=== PATIENT | female | born 1965 | race Caucasian/White ===

== ENCOUNTER → 2018-02-16 11:28 | Outpatient (CLI) | payer MEDICARE, SELFPAY ==
[2018-02-16 13:04] LABS: Amphetamine Urine VISTA NEGATIVE (<1000 ng/mL); Barbiturate Urine VISTA NEGATIVE (< 200 ng/mL); Benzodiazepine Urine VISTA NEGATIVE (< 200 ng/mL); Cocaine Urine VISTA NEGATIVE (< 300 ng/mL); Ecstacy Urine VISTA POSITIVE (< 500 ng/mL); Methadone Urine VISTA NEGATIVE (< 300 ng/mL); PCP Urine VISTA NEGATIVE (< 25 ng/mL); THC Urine VISTA NEGATIVE (< 50 ng/mL); Vista UDS pH Range 5
== END ==
PROVIDERS: Family Provider Family Medicine; PCP Family Medicine; Visit Provider Anesthesiology Pain Medicine
DX: F11.20 Opioid dependence, uncomplicated (principal)
CPT/HCPCS: 80307

== ENCOUNTER 2018-08-17 12:40 | Emergency (ER) | payer MEDICARE, SELFPAY ==
[2018-08-17 12:41] VITALS: BP 124/90; PULSE 79; RESP 18; TEMP 36; O2SAT 99; BMI 23.2
[2018-08-17 13:05] VITALS: BP 133/107; PULSE 88; RESP 14; O2SAT 100
--- NOTE | 2018-08-17 13:42 | EKG12_ITS ---
Test Reason : FALL Blood Pressure : / mmHG Vent. Rate : 091 BPM Atrial Rate : 091 BPM P-R Int : 144 ms QRS Dur : 080 ms QT Int : 380 ms P-R-T Axes : 058 007 018 degrees QTc Int : 467 ms Normal sinus rhythm Low voltage QRS Nonspecific T wave abnormality Prolonged QT Abnormal ECG Confirmed by KEVIN RICE, GARRETT ([id number]), technical writer and editor GER ZHANG ([id number] on 08/20/2018 3:25:06 PM Referred By: MARAYM Confirmed By:GARRETT BROWN MD
--- NOTE | 2018-08-17 13:42 | CT_ITS ---
STUDY: CT BRAIN WITHOUT CONTRAST REASON FOR EXAM: Female, 52 years old. Unsteadiness and falls. RADIATION DOSAGE (If Supplied By Facility): CTDIvol = ( 60.81 ) mGy, DLP = ( 998.67 ) mGycm TECHNIQUE: Transaxial CT imaging of the brain was performed without administration of intravenous contrast material. Individualized dose optimization techniques were used for this CT. COMPARISON: None. FINDINGS: Normal soft tissue structures. Normal calvarium. Normal size ventricles and extra-axial spaces for the patient's age. Normal white matter tracts of the cerebral hemispheres. Normal basal ganglia and thalami. Normal brainstem. Normal cerebellum. There is no intracranial hemorrhage. There are no findings of an acute ischemic infarction. Normal visualized paranasal sinuses. CT/Brain/Head without Contrast IMPRESSION: Normal unenhanced CT scan of the brain. Electronically Signed: Jamshid Castillo MD at 15:17 EST , Service support ,
[2018-08-17 14:55] LABS: Absolute Lymphocyte Count 1.06 X10^3/ul (0.83-4.51); Absolute Neutrophil Count 4.8 X10^3/uL (2.0-7.7); Basophil# 0.01 X10^3/uL; Basophil% 0.2 % (0-1); Eosinophil# 0.09 X10^3/uL; Eosinophils% 1.4 % (0-5); Hematocrit 29.5 % (37-47); Hemoglobin 9.2 g/dl (12.0-15.0); Lymphocyte # 1.06 X10^3/ul (4.0); Lymphocyte % 16.5 % (19-41); Mean Corp Hgb Conc 31.2 g/gl (32-36); Mean Corpuscular Hgb 30.5 pg (27.0-32.0); Mean Corpuscular Volume 97.7 fL (81-99); Mean Platelet Vol. 8.6 fl (6.2-12.0); Monocyte# 0.42 X10^3/uL; Monocyte% 6.5 % (0-10); Neutrophil # 4.84 X10^3/uL (2.7-7.7); Neutrophil % 75.2 % (47-70); POSITIVE COUNT NO; POSITIVE DIFFERENTIAL NO; POSITIVE MORPHOLOGY NO; Platelet Count 286 K/mm3 (150-450); RBC Distribution Width CV 15.3 % (11.6-14.6); RBC Distribution Width SD 54.4 fl (35.1-43.9); Red Blood Count 3.02 M/mm3 (4.2-5.4); White Blood Count 6.4 K/mm3 (4.4-11.0)
[2018-08-17 15:07] LABS: Anion Gap 9 (5-15); BUN 8 mg/dL (7-18); BUN/Creat Ratio 16.5 RATIO (10-20); Calcium,Total 7.7 mg/dL (8.5-10.1); Chloride 107 mmol/L (98-107); Creatinine, Serum 0.49 mg/dL (0.55-1.02); EST Glomerular Filtration Rate 142 mL/min (>60); Est Glom Filt Rate - Afr Amer 172 mL/min (>60); Glucose 76 mg/dL (74-106); Potassium 3.3 mmol/L (3.5-5.1); Sodium Level 143 mmol/L (136-145)
[2018-08-17] MEDS: oxyCODONE 5 MG Tablet 10 MG PO (15:09)
[2018-08-17 15:10] VITALS: BP 133/97; PULSE 90; RESP 15; O2SAT 100
--- NOTE | 2018-08-17 16:09 | ED.VISSUMM ---
- ER Visit Summary Date of Service: 08/17/18 Chief Complaint: Fatigue, generalized weakness and falls. History of Present Illness: The patient is a 52 F history of rheumatoid arthritis, hypertension, anemia. Patient states for 6 months she has had falls. She says at times it feels like her legs are weak. Specifically hard to walk up steps. At times she gets off balance and falls. She denies any LOC or significant head injury. She is on no blood thinners. She has had prior back fusion. She denies any bowel or bladder incontinence. Physical Examination: Middle-aged female looks older than stated age. Vital signs are stable and afebrile. Pulse ox 9% on room air no signs of hypoxia. He is in no acute distress. H EENT exam unremarkable atraumatic. Pupils are round and reactive light. Extra motions are no facial droop. Normal speech. No signs of trauma to her face or scalp. Neck nontender no lymphadenopathy. Lungs clear to auscultation bilaterally. Heart regular rate and rhythm. I do not appreciate any murmur. Abdomen is soft nontender. Normal bowel sounds no peritoneal signs. Extremities moves all 4. Calves are nontender without cords. She has trace edema in her ankles and feet. Neurologically she is awake and alert. Has equal symmetrical assortment planner strength. Dorsi plantar flexion intact. Answering questions. Following commands. Normal speech. No focal motor deficits. NIH is 0. Test Results: CBC shows a white count that is normal. Hemoglobin 9.2. Patient told me she has a chronic anemia. We have no old labs available for comparison. She has had no rectal bleeding or black stool. Electrolytes show potassium of 3.3. BUN of 8 creatinine 0.49 and a normal gap. EKG is a sinus rhythm rate of 91 with no acute abnormalities. CT of her brain showed no acute process. Read as normal by the radiologist and reviewed by Emergency Department Course and Treatment: Repeat exam patient is doing well at 1608. I got her up she got out of bed easily walked through the room in the hallway without any difficulty. She has no ataxia and she just complains of at times her legs get weak. Treatment Plan: Patient will follow up with her primary care physician for further evaluation. This may be coming from her back and she may be developing spinal stenosis. She may need an MRI of her spine. But at this time is no acute cauda equina or any other acute findings. Disposition: Discharge Impression: Acute generalized weakness and fatigue Chronic anemia This note was generated with [employer] dictation software. It may contain incorrect words, spelling, and punctuation that were not noted in review of the chart prior to signing ED Disposition - Plan for ED Patient: Chief Complaint: Fatigue Referrals: Tom Roberto MD [Primary Care Provider] -
--- NOTE | 2018-08-17 16:15 | ED.DEP ---
ED Disposition - Plan for ED Patient: Disposition: Home or Assisted Living Chief Complaint: Fatigue Instructions: ED Weakness [facility] Referrals: Tom Roberto MD [Primary Care Provider] - As soon as possible Additional Instructions: Follow up with your doctor for further evaluation. This may or may not be secondary to spinal stenosis.
[2018-08-17 16:27] VITALS: BP 125/100; PULSE 88; RESP 16; O2SAT 100
== END 2018-08-17 16:28 | disposition home or self-care (01) ==
PROVIDERS: Emergency Provider Emergency Medicine; Family Provider Family Medicine; PCP Family Medicine
DX: R53.1 Weakness (principal); R53.83 Other fatigue; D64.9 Anemia, unspecified; M06.9 Rheumatoid arthritis, unspecified; I10 Essential (primary) hypertension; R29.6 Repeated falls; Z79.891 Long term (current) use of opiate analgesic; Z79.899 Other long term (current) drug therapy
CPT/HCPCS: 70450; 80048; 85025; 93005; 99284; A4216

== ENCOUNTER 2018-09-13 10:02 | Observation (INO) | payer MEDICARE, SELFPAY ==
[2018-09-13] VITALS (8 sets, daily range): BP systolic 111–117; BP diastolic 53–92; PULSE 90–114; RESP 14–20; TEMP 36.6–37.2; O2SAT 95–98; BMI 23.0; BMI 22.5
--- NOTE | 2018-09-13 10:24 | CT_ITS ---
STUDY: CT BRAIN WITHOUT CONTRAST REASON FOR EXAM: Female, 52 years old. Anxiety. Increasing lower extremity weakness. RADIATION DOSAGE (If Supplied By Facility): CTDIvol = ( 44.99 ) mGy, DLP = ( 745.49 ) mGycm TECHNIQUE: Transaxial CT imaging of the brain was performed without administration of intravenous contrast material. Individualized dose optimization techniques were used for this CT. COMPARISON: Comparison is made with prior study dated August 17, 2018. FINDINGS: Normal soft tissue structures. Normal calvarium. There is mild cerebral atrophy with widening of the extra-axial spaces and ventricular dilatation. Normal white matter tracts of the cerebral hemispheres. New tiny lacunae in the left basal ganglia. Normal brainstem. Normal cerebellum. There is no intracranial hemorrhage. There are no findings of an acute ischemic infarction. Atherosclerotic calcification of the cavernous portions of the internal carotid arteries bilaterally. Normal visualized paranasal sinuses. CT/Brain/Head without Contrast IMPRESSION: Tiny lacuna in the left basal ganglion. Electronically Signed: Jamshid Castillo MD at 11:26 EST , Service support ,
--- NOTE | 2018-09-13 10:24 | RAD_ITS ---
STUDY: X-RAY CHEST REASON FOR EXAM: Female, 52 years old. Leg weakness. TECHNIQUE: Single AP portable view of the chest. COMPARISON: None. FINDINGS: Scattered calcified granulomas. The lungs are clear. There is no demonstrated pleural abnormality. Normal size heart. Normal mediastinum and apple. Normal visualized pulmonary arteries. Normal visualized aortic arch and descending thoracic aorta. There are diffuse degenerative changes of the visualized thoracic spine. Normal visualized ribs, clavicles, and shoulders. There is no demonstrated abnormality of the visualized soft tissue structures of the upper abdomen. RAD/Chest 1 View (Portable) IMPRESSION: No acute abnormality is seen. Electronically Signed: Jamshid Castillo MD at 10:48 EST , Service support ,
--- NOTE | 2018-09-13 10:25 | EKG12_ITS ---
Test Reason : SOB/WEAKNESS Blood Pressure : / mmHG Vent. Rate : 092 BPM Atrial Rate : 092 BPM P-R Int : 156 ms QRS Dur : 070 ms QT Int : 322 ms P-R-T Axes : 064 002 052 degrees QTc Int : 398 ms Normal sinus rhythm Low voltage QRS Nonspecific T wave abnormality Abnormal ECG Confirmed by FRANCA RICE, GLADIS ([id number]), scientific publications editor RUTH HALE ([id number] on 09/15/2018 9:54:41 AM Referred By: Ar Arnold Confirmed By:GLADIS SCHULTE MD
--- NOTE | 2018-09-13 10:38 | ED.DCSUM_ITS ---
- ER Visit Summary Date of Service: 09/13/18 Chief Complaint: Weakness History of Present Illness: The patient is a 52 F presenting with bilateral leg weakness. Patient states this started 2-3 months ago and has progressively worsened. She states that she frequently falls when her legs give out on her. She was seen in the ED on August 17 for similar complaints. She states her symptoms have worsened. She was unable to ambulate to the bathroom today. She has fallen multiple times. She did not recently hit her head or lose consciousness. She denies bowel or bladder incontinence. She denies fever. Denies chest pain or abdominal pain. Physical Examination: Vitals are stable. Patient is afebrile. Alert no acute distress. HEENT exam is unremarkable. Neck is supple. No meningismus Lungs are clear and equal bilaterally. Heart is regular rate and rhythm. Abdomen is soft nontender nondistended. Extremities are unremarkable. Skin is warm and dry. No focal neurologic deficit. NIH 0 Remainder of exam is unremarkable. Emergency Department Course and Treatment: EKG is sinus rate of 92, low voltage. Chest x-ray shows no acute process. CT head shows new tiny lacunae in the left basal ganglia. CBC normal except for hemoglobin 10.0. Chemistries normal except for potassium 2.9. Troponin is negative. She is given potassium oral replacement. Family is concerned about her increasing weakness and inability to get around at home. Discussed with the hospitalist for admission. Disposition: Admission Impression: Generalized weakness, hypokalemia, inability to ambulate This note was generated with [employer] dictation software. It may contain incorrect words, spelling, and punctuation that were not noted in review of the chart prior to signing ED Disposition - Plan for ED Patient: Referrals: Care Physician,No Primary [Primary Care Provider] -
[2018-09-13 11:03] LABS: Absolute Lymphocyte Count 0.95 X10^3/ul (0.83-4.51); Basophil# 0.01 X10^3/uL; Basophil% 0.1 % (0-1); Lymphocyte # 0.95 X10^3/ul (4.0); Lymphocyte % 9.9 % (19-41); Mean Corp Hgb Conc 32.3 g/gl (32-36); Mean Corpuscular Hgb 31.9 pg (27.0-32.0); Monocyte# 0.51 X10^3/uL; Monocyte% 5.3 % (0-10); Neutrophil # 7.98 X10^3/uL (2.7-7.7); Neutrophil % 83.2 % (47-70); Platelet Count 395 K/mm3 (150-450); RBC Distribution Width CV 15.6 % (11.6-14.6); Red Blood Count 3.13 M/mm3 (4.2-5.4); White Blood Count 9.6 K/mm3 (4.4-11.0)
[2018-09-13 11:06] LABS: POSITIVE COUNT NO; POSITIVE DIFFERENTIAL NO; POSITIVE MORPHOLOGY NO
[2018-09-13 11:18] LABS: Anion Gap 10 (5-15); BUN 12 mg/dL (7-18); BUN/Creat Ratio 22.2 RATIO (10-20); Calcium,Total 7.1 mg/dL (8.5-10.1); Chloride 102 mmol/L (98-107); Creatinine, Serum 0.54 mg/dL (0.55-1.02); EST Glomerular Filtration Rate 126 mL/min (>60); Est Glom Filt Rate - Afr Amer 152 mL/min (>60); Estimated Creatinine Clearance 100.81 ml/min; Glucose 76 mg/dL (74-106); Potassium 2.9 mmol/L (3.5-5.1); Sodium Level 140 mmol/L (136-145)
--- NOTE | 2018-09-13 11:56 | NURSING ---
DR ZEYAD DOMINIQUE
--- NOTE | 2018-09-13 12:02 | NURSING ---
PCU WEAKNESS, INABILITY TO AMBULATE ZEYAD
--- NOTE | 2018-09-13 13:46 | HP.PCM_ITS ---
Problem List (1) Chronic paraplegia Status: Chronic (2) Hypothyroidism Status: Acute (3) Hypertension Status: Chronic (4) Anxiety and depression Status: Acute (5) Acromegaly Status: Chronic (6) History of pituitary surgery Status: Chronic (7) Rheumatoid arthritis Status: Chronic History of Present Illness Date of Admission: 09/13/18 Chief Complaint: Bilateral leg weakness and recurrent fall The patient is a 52 year old F with chronic left lower extremity weakness for about 8-10 years, used to follow Dr. Anand came to ED with progression of right lower extremity weakness, started about 3 months ago. This has progressed more in the last 2 weeks which led to 3 falls the last 1 month. Patient also felt increased weakness in both hands and her handwriting gotten worse. As per son, she was recently confused about a week ago and could not remember the events of recent demise of her . She was unable to ambulate to the bathroom today. She denies loss of consciousness. She denies any recent bowel or bladder incontinence. No saddle anesthesia. Denies fever or chills. 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 Chest x-ray normal. EKG shows normal sinus rhythm with low voltage QRS. Basic blood work shows hypokalemia, K2.9, H&H 10/31.0. Past Medical History Past Medical History (Chronic Problems): Chronic Problems Chronic paraplegia (Chronic) Hypertension (Chronic) Acromegaly (Chronic) History of pituitary surgery (Chronic) Rheumatoid arthritis (Chronic) Allergies No Known Allergies Allergy (Verified 09/13/18 10:06) Home Medications: Ambulatory Orders Medication Instructions Recorded Duloxetine HCl 1 tab PO BID 08/17/18 Hydrochlorothiazide 1 tab PO DAILY 08/17/18 Levothyroxine Sodium 1 tab PO DAILY 08/17/18 Lisinopril 1 tab PO DAILY 08/17/18 Metoprolol Tartrate [Lopressor 1 tab PO DAILY 08/17/18 (beta jordan)] Oxycodone HCl/Acetaminophen 1 tab PO Q4H PRN PRN 08/17/18 [Oxycodon-Acetaminophen 7.5-325] Quetiapine Fumarate 1 tab PO QHS 08/17/18 Bupropion HCl [Wellbutrin Xl] 150 mg PO DAILY 09/13/18 Hydrocortisone [Cortef] 10 mg PO DAILY 09/13/18 Hydroxyzine Pamoate [Vistaril] 100 mg PO BID PRN PRN 09/13/18 Valacyclovir HCl [Valtrex] 2,000 mg PO BID PRN 09/13/18 Smoking Status: Never smoker - *Family History Paternal History Items: No pertinent history - no Family history of neurological disease in parents Review of Systems Constitutional: Reports: Malaise, Weakness, Fatigue. Denies: Chills, Fever, Weight Change HEENT: Denies: Head Aches, Sinus Congestion, Sinus Drainage Cardiovascular: Reports: Edema. Denies: Chest Pain, Palpitations Respiratory: Denies: Cough, Shortness of breath at rest, Sputum production Gastrointestinal: Denies: Abdominal Pain, Nausea, Vomiting Genitourinary: Denies: Dysuria, Frequency, Incontinence, Retention, Urgency Musculoskeletal: Reports: Back Pain, Joint Pain, Joint stiffness, Joint Tenderness Skin: Denies: Rash, Wounds Neurological: Reports: Balance problems, Focal weakness, Incoordination, N umbness. Denies: Tingling Psychiatric: Reports: Anxiety, Depression. Denies: Homicidal Ideations, Suicidal Ideations Hematologic/ Lymphatic: Denies: Easy Bruising, Easy Bleeding VTE Information - Inpt Only VTE Present on Admission: No VTE Mechan Device Prophylaxis: None VTE Pharm Prophylaxis ordered?: Yes Patient Problems: Active and Suspected Problems Hypothyroidism (Acute) Anxiety and depression (Acute) - Physical Exam General: Alert, Oriented x3, Cooperative HEENT: Atraumatic, PERRLA, EOMI, Normocephalic, - - 1:1 visual confrontation test is negative. Neck: Supple, No JVD, Negative Carotid Bruits Lungs: Clear to auscultation, Normal air movement, No rhonchi, No wheeze, No rales Cardiovascular: Regular rate, Regular Rhythm, Normal S1, Normal S2, Murmur - Diastolic murmur present over aortic area. Systolic ejection murmur present over aortic and lower left sternal border Abdomen: Bowel Sounds Present, Soft, Non Tender, Non-Distended Extremities: No edema, Capillary Refill Less than 3 Seconds Skin: No rashes, No breakdown Musculoskeletal: No Tenderness to Palpation of Joints or Extremities, Arthritic Changes, Muscle Wasting Neurological: - - Slight left-sided facial droop. Weakness in both lower extremities, left lower extremities more than right. No recognizable speech abnormality. Weakness in finger abductors and adductors. Cerebellar signs negative. Psych/Mental Status: Normal Affect, Appropriate Vital Signs Temp Pulse Resp BP Pulse Ox 97.8 F 90 16 111/56 L 97 09/13/18 10:03 09/13/18 11:59 09/13/18 11:59 09/13/18 11:59 09/13/18 11:59 Oxygen Delivery Method Room Air Weight: 127 lb 3.307 oz Body Mass Index (BMI) 22.5 Laboratory Tests Past 24 Hrs 09/13/18 09/13/18 10:50 10:50 WBC 9.6 RBC 3.13 L Hgb 10.0 L Hct 31.0 L MCV 99.0 MCH 31.9 MCHC 32.3 RDW 15.6 H RDW Differential 52.0 H Plt Count 395 MPV 9.0 Immature Gran % (Auto) 0.500 Neut % (Auto) 83.2 H Lymph % (Auto) 9.9 L Carbon % (Auto) 5.3 Eos % (Auto) 1.0 Baso % (Auto) 0.1 Absolute Neuts (auto) 8.0 H Absolute Lymphs (auto) 0.95 Total Counted Not Reportable Sodium 140 Potassium 2.9 L Chloride 102 Carbon Dioxide 28.0 Anion Gap 10 BUN 12 Creatinine 0.54 L Estim Creat Clear Calc 100.81 Est GFR (MDRD) Af Amer 152 Est GFR (MDRD) Non-Af 126 BUN/Creatinine Ratio 22.2 H Glucose 76 Calcium 7.1 L Troponin I < 0.015 Assessment/Plan All Active Problems Hypothyroidism (Acute) Anxiety and depression (Acute) The patient is a 52 year old F with chronic left lower extremity weakness for about 8-10 years, used to follow Dr. Anand came to ED with progression of right lower extremity weakness, started about 3 months ago. This has progressed more in the last 2 weeks which led to 3 falls the last 1 month. Patient also felt increased weakness in both hands and her handwriting gotten worse. As per son, she was recently confused about a week ago and could not remember the events of recent demise of her . She was unable to ambulate to the bathroom today. She denies loss of consciousness. She denies any recent bowel or bladder incontinence. No saddle anesthesia. Denies fever or chills. 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 Chest x-ray normal. EKG shows normal sinus rhythm with low voltage QRS. Basic blood work shows hypokalemia, K2.9, H&H 10/31.0. 1. Subacute right lower extremity weakness on left lower baseline chronic left lower extremity weakness: Patient does not have signs and symptoms of upper motor neuron lesion/cord compression/saddle anesthesia. Patient is being admitted in PCU. MRI C-spine and lumbar spine ordered. Discussed with the neurologist. PT OT and speech evaluation. Fasting profile and A1c tomorrow a.m. 2. Tiny lacuna left basal ganglia: CT brain reported as no acute infarction. Hypokalemia: Potassium monitoring and replacement. Serum magnesium ordered. Anemia of chronic disease: Monitor CBC. 3. 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 TSH and free T4 and cortisol tomorrow a.m. 4. Rheumatoid arthritis with mild hand/small muscles weakness 5. Hypertension, anxiety and depression: Home medication reconciliation done. Blood pressure is controlled. DVT prophylaxis: On Lovenox 40 mg subcu daily Clinical Impression(s) from Imaging Studies Brain CT 09/13/18 10:24 IMPRESSION: Tiny lacuna in the left basal ganglion. Electronically Signed: Jamshid Castillo MD at 11:26 EST , Service support , Chest X-Ray 09/13/18 10:24 IMPRESSION: No acute abnormality is seen. Active Medications Acetaminophen (Tylenol) 650 mg PO Q4H PRN PRN PRN Reason: Headache/Temp>99F Aspirin (Aspirin, Baby) 81 mg PO DAILY@0800 [facility] Atorvastatin Calcium (Lipitor) 80 mg PO QHS [facility] Bupropion HCl (Wellbutrin Xl) 150 mg PO DAILY [facility] Clopidogrel Bisulfate (Plavix) 75 mg PO DAILY [facility] Duloxetine HCl (Cymbalta) mg PO BID [facility] Famotidine (Pepcid) 20 mg PO BID [facility] Hydrochlorothiazide () mg PO DAILY [facility] Hydrocortisone (Cortef) 10 mg PO DAILY [facility] Sodium Chloride () 1,000 mls @ 100 mls/hr IV .Q10H [facility] Levothyroxine Sodium (Synthroid) mcg PO DAILY [facility] Metoprolol Tartrate (Lopressor (Beta Jordan)) mg PO DAILY [facility] Non-Formulary Medication (Hydroxyzine Pamoate [Vistaril]) 100 mg PO BID PRN PRN PRN Reason: ANXIETY Non-Formulary Medication (Oxycodone Hcl/Acetaminophen [Oxycodon-Acetaminophen 7.5-325]) 1 tab PO Q4H PRN PRN PRN Reason: PAIN Non-Formulary Medication (Valacyclovir Hcl) 2,000 mg PO BID PRN PRN Reason: outbreak Potassium Chloride (K-Dur) [facility] Stop: 09/14/18 17:01 Quetiapine Fumarate (Seroquel) mg PO QHS [facility] Code Visit Inpatient E&M: 79622 Init Hosp L3
--- NOTE | 2018-09-13 14:13 | MRI_ITS ---
HISTORY: CVA, PARAPLEGIA, NECK PAINchronic LLE weakness, now has RLE weakness past 3 months, falls, weakness bilat hands, hx pituitary surgery lesion too close to artery TECHNIQUE: Routine MRI of the cervical spine was performed. IV Contrast dosage and agent: None. COMPARISON: 03/15/15 MRI cervical spine. FINDINGS: # of images incl. paperwork: 253 Alignment anatomic. No acute signal changes in the vertebrae or disks. Normal contour and signal of the cervical spinal cord. Multilevel disc desiccation. Small disc protrusion that C5-6 and C6-7. Only mild narrowing of the spinal canal and foramina. Paraspinal soft tissues unremarkable. MRI/Spine Cervical (Routine) IMPRESSION: No acute findings. Mild degenerative changes with no evidence of nerve root impingement. at 0019 Reported and signed by: Nilesh Verduzco MD Electronically Signed: Nilesh Verduzco, at 0:18 EST Tel , Service support ,
--- NOTE | 2018-09-13 14:13 | MRI_ITS ---
HISTORY: CVA, PARAPLEGIA, NECK PAINchronic LLE weakness, now has RLE weakness past 3 months, falls, weakness bilat hands, hx pituitary surgery lesion too close to artery TECHNIQUE: Multiplanar and multisequence MR images of the brain were obtained without gadolinium. IV Contrast dosage and agent: None. COMPARISON: 09/13/18 CT brain. FINDINGS: # of images incl. paperwork: 278 No acute infarct, hemorrhage, or parenchymal brain mass. No hydrocephalus. Cerebral hemispheres and cerebellum, central padgett matter and allyson and brainstem unremarkable noncontrast MRI appearance. Heterogenous signal abnormality in and mild expansion of the upper clivus and floor of the sella, with abnormal signal extending into the left greater than right cavernous sinus. Pituitary gland not definitively identified. Optic chiasm unremarkable. Major flow voids preserved. The remainder of the calvarium is unremarkable. No paranasal sinus air-fluid levels. MRI/Brain without Contrast IMPRESSION: No acute intracranial abnormality. No infarct, hemorrhage or brain mass. Heterogenous signal abnormality in and mild expansion of the upper clivus and floor of the sella, with abnormal signal extending into the left greater than right cavernous sinus. Appearance most suspicious for residual or recurrent pituitary adenoma superimposed upon chronic postoperative changes. Comparison with priors would be helpful. Pituitary protocol MRI with and without gadolinium would better delineate. at 2331 Reported and signed by: Nilesh Verduzco MD Electronically Signed: Nilesh Verduzco, at 23:30 EST Tel , Service support ,
--- NOTE | 2018-09-13 14:13 | MRI_ITS ---
HISTORY: CVA, PARAPLEGIA, NECK PAINchronic LLE weakness, now has RLE weakness past 3 months, falls, weakness bilat hands, hx pituitary surgery lesion too close to artery TECHNIQUE: Multiplanar and multisequence MR images of the lumbar spine. IV Contrast dosage and agent: None. COMPARISON: None FINDINGS: # of images incl. paperwork: 128 Alignment anatomic. No fracture or acute signal changes in the vertebrae. Status post posterior fusion L4-5 and laminectomy. At L1-2 and L2-3, mild bilateral facet degeneration causes no significant narrowing. At L3-4, marked bilateral facet degeneration with bilateral facet joint effusions and degenerative buckling of the ligamentum flavum combine with a moderate in size diffuse disc bulge to cause moderate to severe narrowing of the right greater than left subarticular zones, with moderate crowding of the cauda equina and possible compression of the traversing right greater than left L4 nerve roots in the subarticular zones. At L4-5, the patient is status post posterior fusion and laminectomy with decompression of the spinal canal. Vertebral body osteophytes extend into and moderately narrow the left foramen. No significant right foraminal narrowing. At L5-S1, small disc bulge and bilateral facet osteophytes cause mild spinal canal and mild bilateral foraminal narrowing with no evidence of nerve root impingement. No acute finding in the paraspinal soft tissues. MRI/Spine Lumbar (Routine) IMPRESSION: Facet greater than disc degeneration at L3-4 resulting in moderate to severe narrowing of the right greater than left subarticular zones, possibly compressing the traversing L4 nerve roots. Status post L4-5 posterior fusion and laminectomy with no evidence of complication. Vertebral body osteophytes extend into and moderately narrows the left foramen. at 4328 Reported and signed by: Nilesh Verduzco MD Electronically Signed: Nilesh Verduzco, at 23:47 EST Tel , Service support ,
--- NOTE | 2018-09-13 14:20 | ECHOD_ITS ---
Reason For Study: CVA Procedure This was a 2D Doppler, Color Flow transthoracic echocardiogram. Exam performed portable in patient room. Left Ventricle Normal LV size. Mid cavitary false tendon noted. Left ventricular systolic function is normal. The estimated ejection fraction is 60 %. Stage 1 diastolic dysfunction. No regional wall motion abnormalities noted. Right Ventricle Normal RV size. Normal systolic function. Atria Normal left atrium. Normal right atrium. Bubble contrast study negative for right to left interatrial shunt. Mitral Valve Bileaflet diffuse mitral valve thickening. Mild (1+) eccentric mitral valve insufficiency. Tricuspid Valve Normal tricuspid valve. Mild tricuspid valve insufficiency. Aortic Valve Trisinus/trileaflet aortic valve. Great Vessels Mildly dilated aortic root. The pulmonary artery is normal size. Normal inferior vena cava. Pericardium/Pleural No pericardial effusion. Medication Performed a rapid injection of agitated mix of 9 cc saline and 1cc air to assess for atrial septal defect. MMode/2D Measurements & Calculations LVIDd: 3.3 cm IVSd: 1.0 cm Ao root diam: 3.5 cm LVIDs: 2.3 cm LVPWd: 0.79 cm RVDd: 2.5 cm FS: 30.9 % LAV(MOD-bp): 19.1 ml LVAd ap4: 22.0 cm2 SV(MOD-sp4): 37.1 ml LAV(MOD-bp) Indexed: 12.0 ml/m2 EDV(MOD-sp4): 56.8 ml LAV(MOD-sp2): 22.9 ml EDV(sp4-el): 59.4 ml LAV(MOD-sp4): 14.7 ml LVAs ap4: 11.5 cm2 ESV(MOD-sp4): 19.7 ml ESV(sp4-el): 19.4 ml EF(MOD-sp4): 65.3 % EF(sp4-el): 67.4 % SV(sp4-el): 40.1 ml LA A4 area: 8.5 cm2 LA dimension(2D): 3.1 cm RA A4 area: 8.1 cm2 Doppler Measurements & Calculations MV E max arun: 87.2 cm/sec Lat Peak E' Arun: 10.2 cm/sec Med Peak E' Arun: 6.5 cm/sec MV A max arun: 114.7 cm/sec E/E' lat: 8.6 E/E' med: 13.4 MV E/A: 0.76 Ao V2 max: 132.7 cm/sec LV V1 max: 102.7 cm/sec PA V2 max: 87.6 cm/sec Ao max P.0 mmHg LV V1 max P.2 mmHg Ao V2 mean: 98.5 cm/sec Ao mean P.2 mmHg Ao V2 VTI: 23.3 cm TR max arun: 214.2 cm/sec TR max P.3 mmHg Interpretation Summary Normal LV size. Left ventricular systolic function is normal. The estimated ejection fraction is 60 %. Stage 1 diastolic dysfunction. Mild (1+) eccentric mitral valve insufficiency. Ordering Physician: Ar Arnold Referring Physician: Ar Arnold Performed By: Ramya Valentine RDCS, RVT
[2018-09-13 15:17] LABS: AST(SGOT) 54 U/L (15-37); Alanine Aminotransfer ALT/SGPT 48 U/L (13-56); Albumin, Serum 1.5 g/dL (3.2-5.0); Alkaline Phosphatase 194 U/L (45-117); Bilirubin, Direct 0.87 mg/dL (0.00-0.30); Globulin 3.1 g/dL (2.2-4.2); Protein, Total 4.6 g/dL (6.4-8.2); Thyroid Stim Hormone (TSH) 2.11 uIU/mL (0.358-3.74)
--- NOTE | 2018-09-13 16:05 | CON.PCM_ITS ---
Problem List (1) Leg weakness, bilateral Status: Chronic Reason for Consult Date of Consultation: 09/13/18 Reason for Consultation: LE weakness History of Present Illness: The patient is a 52 year old F with PMH HTN, Chronic LE weakness, H/O Lumbar fusion, H/O acromegaly s/p pituitary surgery, RA, anxiety/depression admitted with LE weakness. Per patient she has chronic left LE weakness for the past many years, had seen Dr. Anand in the past per patient, then since last 6 more months or so she felt her right LE was getting weak, also complaints of about 2-3 falls in the last month, uses cane to ambulate for the past month, complaints of left LE numbness but denies any numbness in the right leg. Denies any arm weakness, does not drop objects, had lumbar fusion in the past and has chronic low back pain, goes to pain management, denies any radicular symptoms, neck pain or urinary incontinence. CT head reported to show new tiny lacunae in the left BG but no acute infarct. Past Medical History Past Medical History (Chronic Problems): Chronic Problems Chronic paraplegia (Chronic) Hypertension (Chronic) Acromegaly (Chronic) History of pituitary surgery (Chronic) Rheumatoid arthritis (Chronic) Leg weakness, bilateral (Chronic) Allergies No Known Allergies Allergy (Verified 09/13/18 10:06) Home Medications: Ambulatory Orders Medication Instructions Recorded Duloxetine HCl 1 tab PO BID 08/17/18 Hydrochlorothiazide 1 tab PO DAILY 08/17/18 Levothyroxine Sodium 1 tab PO DAILY 08/17/18 Lisinopril 1 tab PO DAILY 08/17/18 Metoprolol Tartrate [Lopressor 1 tab PO DAILY 08/17/18 (beta jimena)] Oxycodone HCl/Acetaminophen 1 tab PO Q4H PRN PRN 08/17/18 [Oxycodon-Acetaminophen 7.5-325] Quetiapine Fumarate 1 tab PO QHS 08/17/18 Bupropion HCl [Wellbutrin Xl] 150 mg PO DAILY 09/13/18 Hydrocortisone [Cortef] 10 mg PO DAILY 09/13/18 Hydroxyzine Pamoate [Vistaril] 100 mg PO BID PRN PRN 09/13/18 Valacyclovir HCl [Valtrex] 2,000 mg PO BID PRN 09/13/18 Lives: - - with son Smoking Status: Never smoker Alcohol: None Drugs: None - *Family History Paternal History Items: No pertinent history - no Family history of neurological disease in parents Review of Systems Constitutional: Reports: - - complete ROS negative except as documented in HPI Patient Problems: Active and Suspected Problems Hypothyroidism (Acute) Anxiety and depression (Acute) - Physical Exam General: Alert HEENT: Normocephalic Neck: Supple Lungs: Normal air movement Cardiovascular: Normal S1, Normal S2 Abdomen: Bowel Sounds Present Extremities: No cyanosis Neurological: - - consious, alert, AoA x3, CN 2-12 grossly intact, power 5/5 both UE, +4/5 both LE, no sensory loss, no cerebellar signs, Reflexes ++ B/L B/S/T/K/A, gait deferred Psych/Mental Status: Normal Affect Vital Signs Temp Pulse Resp BP Pulse Ox 98.1 F 90 14 115/92 H 98 09/13/18 13:50 09/13/18 13:52 09/13/18 13:50 09/13/18 13:50 09/13/18 13:50 Oxygen Delivery Method Room Air Weight: 57.7 kg Body Mass Index (BMI) 22.5 Laboratory Tests Past 24 Hrs 09/13/18 09/13/18 09/13/18 10:50 10:50 14:45 WBC 9.6 RBC 3.13 L Hgb 10.0 L Hct 31.0 L MCV 99.0 MCH 31.9 MCHC 32.3 RDW 15.6 H RDW Differential 52.0 H Plt Count 395 MPV 9.0 Immature Gran % (Auto) 0.500 Neut % (Auto) 83.2 H Lymph % (Auto) 9.9 L [place] % (Auto) 5.3 Eos % (Auto) 1.0 Baso % (Auto) 0.1 Absolute Neuts (auto) 8.0 H Absolute Lymphs (auto) 0.95 Total Counted Not Reportable Sodium 140 Potassium 2.9 L Chloride 102 Carbon Dioxide 28.0 Anion Gap 10 BUN 12 Creatinine 0.54 L Estim Creat Clear Calc 100.81 Est GFR (MDRD) Af Amer 152 Est GFR (MDRD) Non-Af 126 BUN/Creatinine Ratio 22.2 H Glucose 76 Calcium 7.1 L Magnesium 2.0 Total Bilirubin 1.20 H Direct Bilirubin 0.87 H AST 54 H ALT 48 Alkaline Phosphatase 194 H Troponin I < 0.015 < 0.015 C-React Prot Ext Range 25.30 H Total Protein 4.6 L Albumin 1.5 L Globulin 3.1 TSH 2.11 Cortisol 09/13/18 15:22 WBC RBC Hgb Hct MCV MCH MCHC RDW RDW Differential Plt Count MPV Immature Gran % (Auto) Neut % (Auto) Lymph % (Auto) [place] % (Auto) Eos % (Auto) Baso % (Auto) Absolute Neuts (auto) Absolute Lymphs (auto) Total Counted Sodium Potassium Chloride Carbon Dioxide Anion Gap BUN Creatinine Estim Creat Clear Calc Est GFR (MDRD) Af Amer Est GFR (MDRD) Non-Af BUN/Creatinine Ratio Glucose Calcium Magnesium Total Bilirubin Direct Bilirubin AST ALT Alkaline Phosphatase Troponin I C-React Prot Ext Range Total Protein Albumin Globulin TSH Cortisol Pending Assessment/Plan All Active Problems Hypothyroidism (Acute) Anxiety and depression (Acute) The patient is a 52 year old F with PMH HTN, Chronic LE weakness, H/O Lumbar fusion, H/O acromegaly s/p pituitary surgery, RA, anxiety/depression admitted with LE weakness. Per patient she has chronic left LE weakness for the past many years, had seen Dr. Anand in the past per patient, then since last 6 more months or so she felt her right LE was getting weak, also complaints of about 2- 3 falls in the last month, uses cane to ambulate for the past month, complaints of left LE numbness but denies any numbness in the right leg. Denies any arm weakness, does not drop objects, had lumbar fusion in the past and has chronic low back pain, goes to pain management, denies any radicular symptoms, neck pain or urinary incontinence. CT head reported to show new tiny lacunae in the left BG but no acute infarct. Impression ? LE weakness Plan -Check MRI brain w/o contrast and MRA head/neck -Check MRI C spine and L spine w/o contrast -ASA/statins if neuroimaging shows old stroke -TSH-2.11 -Check Vitamin B12, Vitamin D level, RICH/ANCA/RF/SSa/SSb Ab, SPEP with ERICA and UPEP with ERICA -EMG/NCS both LE as outpatient. -PT/OT -Fall precautions -GI/DVT prophylaxis -Further medical management per hospitalist team -Follow up with Neurology as outpatient in 6 weeks -Please call with questions if any -Thank you for allowing us to participate in patient's care and management. Code Visit Inpatient E&M: [id number] Init Hosp L3
--- NOTE | 2018-09-13 16:09 | MRI_ITS ---
HISTORY: CVA, PARAPLEGIA, NECK PAINchronic LLE weakness, now has RLE weakness past 3 months, falls, weakness bilat hands, hx pituitary surgery lesion too close to artery TECHNIQUE: Routine emmonak of Alfonso/brain 3D time of flight MR angiogram protocol was performed without gadolinium. 3D reconstructions were reviewed. IV Contrast dosage and agent: None. COMPARISON: None FINDINGS: # of images incl. paperwork: 195 ICAs: No significant stenosis at the intracranial/visualized segments. ACAs: No significant stenosis at the visualized segments. ACOM is present. MCAs: No significant stenosis at the visualized segments. PCOMs are present. fine wire drawer: No significant stenosis at the visualized segments. BASILAR ARTERY: No significant stenosis. VERTEBRAL ARTERIES: No significant stenosis at the intradural/visualized segments. No evidence of intracranial aneurysm or vascular malformation. MRI/MRA Head ONLY without Contrast IMPRESSION: Unremarkable MRA head. at 0117 Reported and signed by: Nilesh Verduzco MD Electronically Signed: Nielsh Verduzco, at 1:16 EST Tel , Service support ,
--- NOTE | 2018-09-13 16:09 | MRI_ITS ---
HISTORY: CVA, PARAPLEGIA, NECK PAINchronic LLE weakness, now has RLE weakness past 3 months, falls, weakness bilat hands, hx pituitary surgery lesion too close to artery TECHNIQUE: Routine carotid MR angiogram protocol was performed. 3D reconstructions were reviewed. Nascet criteria using the distal ICAs for comparison were used for evaluation of stenoses. IV Contrast dosage and agent: 6 cc Gadavist COMPARISON: None FINDINGS: # of images incl. paperwork: 316 AORTIC ARCH AND BRANCHES: No significant stenosis at the visualized portions. RIGHT CCA: No occlusion, significant stenosis or dissection. RIGHT ICA: No occlusion, significant stenosis or dissection. LEFT CCA: No occlusion, significant stenosis or dissection. LEFT ICA: No occlusion, significant stenosis or dissection. RIGHT VERTEBRAL ARTERY: No occlusion, significant stenosis or dissection. LEFT VERTEBRAL ARTERY: No occlusion, significant stenosis or dissection. No evidence of acute injury of the major arterial system of the neck. No evidence of occlusion at the visualized portions of the major arterial system of the head. MRI/MRA Neck WITH and W/O Contrast IMPRESSION: Unremarkable MRA neck. at 0113 Reported and signed by: Nilesh Verduzco MD Electronically Signed: Nilesh Verduzco, at 1:12 EST Tel , Service support ,
[2018-09-13 16:58] LABS: Vitamin B12 810 pg/mL (211-911)
[2018-09-13] MEDS: Aspirin 81 MG TAB.CHEW PO (17:47)
[2018-09-13] MEDS: 0.9% Normal Saline 1,000 ML 100 ML IV (17:47)
[2018-09-13] MEDS: oxyCODONE 5 MG Tablet 7.5 MG PO ×2 (17:48→22:15)
[2018-09-13] MEDS: Enoxaparin 40 MG/0.4 ML Syringe SC (17:50)
[2018-09-13] MEDS: LORazepam 2 MG/ML Syringe 1 MG IV (19:04)
[2018-09-13] MEDS: BENZOCAINE/MENTHOL 1 LOZENGE MUCOUS MEM (19:04)
[2018-09-13] MEDS: Ondansetron 4 MG/2 ML Vial IV (19:04)
[2018-09-13] MEDS: 0.9% NaCl Peripheral Flush Adult/Peds IV ×2 (19:09→22:11)
[2018-09-13] MEDS: DULoxetine Hcl 60 MG Capsule PO (22:08)
[2018-09-13] MEDS: QUEtiapine 100 MG Tablet PO (22:09)
[2018-09-13] MEDS: Atorvastatin Calcium 80 MG Tablet PO (22:09)
[2018-09-13] MEDS: Famotidine 20 MG Tablet PO (22:09)
[2018-09-14] VITALS (12 sets, daily range): BP systolic 93–124; BP diastolic 72–90; PULSE 72–109; RESP 16; TEMP 36.7–37.4; O2SAT 93–99; BMI 22.5
[2018-09-14 05:51] LABS: Cholesterol 107 mg/dL (200); High Density Lipoprotein 44 mg/dL; T4 Free Direct 0.63 ng/dL (0.76-1.46); Triglycerides 154 mg/dL; Very Low Density Lipoprotein 31 mg/dL (5-40)
[2018-09-14] MEDS: Levothyroxine 125 MCG Tablet PO (06:04)
[2018-09-14] MEDS: Famotidine 20 MG Tablet PO ×2 (06:08→21:16)
[2018-09-14] MEDS: 0.9% Normal Saline 1,000 ML 100 ML IV ×2 (06:11→16:33)
[2018-09-14] MEDS: oxyCODONE 5 MG Tablet 7.5 MG PO ×3 (06:21→19:24)
[2018-09-14] MEDS: BENZOCAINE/MENTHOL 1 LOZENGE MUCOUS MEM (06:21)
[2018-09-14 08:13] LABS: Anion Gap 5 (5-15); BUN 13 mg/dL (7-18); BUN/Creat Ratio 24.5 RATIO (10-20); Chloride 106 mmol/L (98-107); Creatinine, Serum 0.53 mg/dL (0.55-1.02); EST Glomerular Filtration Rate 128 mL/min (>60); Est Glom Filt Rate - Afr Amer 155 mL/min (>60); Estimated Creatinine Clearance 102.71 ml/min; Glucose 83 mg/dL (74-106); Potassium 3.7 mmol/L (3.5-5.1); Sodium Level 140 mmol/L (136-145)
[2018-09-14] MEDS: Aspirin 81 MG TAB.CHEW PO (08:59)
[2018-09-14] MEDS: Hydrocortisone 10 MG Tablet PO (08:59)
[2018-09-14] MEDS: buPROPion (XL) 150 MG TABLET.XL PO (09:06)
[2018-09-14] MEDS: DULoxetine Hcl 60 MG Capsule PO ×2 (09:06→21:16)
[2018-09-14] MEDS: Metoprolol Tartrate 25 MG Tablet PO (09:06)
[2018-09-14] MEDS: hydroCHLOROthiazide 12.5mg 12.5 MG PO (09:07)
[2018-09-14] MEDS: Enoxaparin 40 MG/0.4 ML Syringe SC (09:07)
[2018-09-14] MEDS: Clopidogrel Bisulfate 75 MG Tablet PO (09:07)
[2018-09-14 10:00] LABS: Hemoglobin A1c < 3.5 % (4.2-6.3)
--- NOTE | 2018-09-14 10:45 | CASEMGMT ---
According to [facility] MyCare website, the following are in-network tertiary facilities: [facility], [facility], [facility], [facility]. [facility], [facility], and . Haydee QUINTANA CM
--- NOTE | 2018-09-14 12:11 | PCM.PN.NEU ---
Patient Problems: Active and Suspected Problems Hypothyroidism (Acute) Anxiety and depression (Acute) Subjective: No issues overnight. Care discussed with hospitalist taking of the patient. - Physical Exam General: Alert HEENT: Normocephalic Neck: Supple Lungs: Normal air movement Cardiovascular: Normal S1, Normal S2 Abdomen: Bowel Sounds Present Extremities: No cyanosis Neurological: - - consious, alert, AoA x3, CN 2-12 grossly intact, power 5/5 both UE, +4/5 both LE, no sensory loss, no cerebellar signs, Reflexes ++ B/L B/S/T/K/A, gait deferred Psych/Mental Status: Normal Affect Vital Signs Temp Pulse Resp BP Pulse Ox 99.0 F 79 16 104/76 97 09/14/18 09:05 09/14/18 11:00 09/14/18 09:05 09/14/18 09:06 09/14/18 09:05 Oxygen Delivery Method Room Air Weight: 57.697 kg Body Mass Index (BMI) 22.5 Intake and Output for Last 24 Hours 09/12/18 09/13/18 09/14/18 23:59 23:59 23:59 Intake Total 994 / 994 575 / 575 Output Total 0 / 0 200 / 200 Balance 994 / 994 375 / 375 Laboratory Tests Past 24 Hrs 09/13/18 09/13/18 09/13/18 14:45 15:22 15:22 Sodium Potassium Chloride Carbon Dioxide Anion Gap BUN Creatinine Estim Creat Clear Calc Est GFR (MDRD) Af Amer Est GFR (MDRD) Non-Af BUN/Creatinine Ratio Glucose Hemoglobin A1c Calcium Magnesium 2.0 Total Bilirubin 1.20 H Direct Bilirubin 0.87 H AST 54 H ALT 48 Alkaline Phosphatase 194 H Troponin I < 0.015 C-React Prot Ext Range 25.30 H Total Protein 4.6 L Total Protein (PEP) Albumin 1.5 L Albumin (PEP) Globulin 3.1 Globulin (PEP) Albumin/Globulin (PEP) Qkkhh-4-Domstawua Nievp-6-Fekvaeckr Beta Globulins Gamma Globulins M-Luis Angel Triglycerides Cholesterol LDL Cholesterol VLDL Cholesterol HDL Cholesterol Vitamin B12 810 Vitamin D 25-Hydroxy 15.0 L TSH 2.11 Free T4 Cortisol 20.40 Rheumatoid Factor RICH Screen c-ANCA Antibody p-ANCA Antibody AJ-1 Antibody SS-A/Ro IgG Antibody SS-B/La IgG Antibody Sm (Wiseman) Antibody [employer] Antibody Scl-70 Scleroderma Ab Double Strand DNA Ab Anti-ss DNA IgG Ab Centromere B Antibody 09/13/18 09/14/18 09/14/18 15:22 05:15 05:15 Sodium Potassium Chloride Carbon Dioxide Anion Gap BUN Creatinine Estim Creat Clear Calc Est GFR (MDRD) Af Amer Est GFR (MDRD) Non-Af BUN/Creatinine Ratio Glucose Hemoglobin A1c < 3.5 L Calcium Magnesium Total Bilirubin Direct Bilirubin AST ALT Alkaline Phosphatase Troponin I C-React Prot Ext Range Total Protein Total Protein (PEP) Albumin Albumin (PEP) Globulin Globulin (PEP) Albumin/Globulin (PEP) Xzxxa-1-Pqwvsztrg Wjdpg-8-Zzkbdxhme Beta Globulins Gamma Globulins M-Luis Angel Triglycerides 154 Cholesterol 107 LDL Cholesterol 32 VLDL Cholesterol 31 HDL Cholesterol 44 Vitamin B12 Vitamin D 25-Hydroxy TSH Free T4 0.63 L Cortisol Rheumatoid Factor 13.0 RICH Screen c-ANCA Antibody p-ANCA Antibody AJ-1 Antibody SS-A/Ro IgG Antibody SS-B/La IgG Antibody Sm (Wiseman) Antibody [employer] Antibody Scl-70 Scleroderma Ab Double Strand DNA Ab Anti-ss DNA IgG Ab Centromere B Antibody 09/14/18 09/14/18 09/14/18 05:15 05:15 05:15 Sodium Potassium Chloride Carbon Dioxide Anion Gap BUN Creatinine Estim Creat Clear Calc Est GFR (MDRD) Af Amer Est GFR (MDRD) Non-Af BUN/Creatinine Ratio Glucose Hemoglobin A1c Calcium Magnesium Total Bilirubin Direct Bilirubin AST ALT Alkaline Phosphatase Troponin I C-React Prot Ext Range Total Protein Total Protein (PEP) Pending Albumin Albumin (PEP) Pending Globulin Globulin (PEP) Pending Albumin/Globulin (PEP) Pending Giiro-3-Tpahyouse Pending Wzrrg-8-Dyjttxqle Pending Beta Globulins Pending Gamma Globulins Pending M-Luis Angel Pending Triglycerides Cholesterol LDL Cholesterol VLDL Cholesterol HDL Cholesterol Vitamin B12 Vitamin D 25-Hydroxy TSH Free T4 Cortisol Rheumatoid Factor RICH Screen Pending c-ANCA Antibody Pending p-ANCA Antibody Pending AJ-1 Antibody Pending SS-A/Ro IgG Antibody Pending SS-B/La IgG Antibody Pending Sm (Wiseman) Antibody Pending [employer] Antibody Pending Scl-70 Scleroderma Ab Pending Double Strand DNA Ab Pending Anti-ss DNA IgG Ab Pending Centromere B Antibody Pending 09/14/18 05:15 Sodium 140 Potassium 3.7 Chloride 106 Carbon Dioxide 29.0 Anion Gap 5 BUN 13 Creatinine 0.53 L Estim Creat Clear Calc 102.71 Est GFR (MDRD) Af Amer 155 Est GFR (MDRD) Non-Af 128 BUN/Creatinine Ratio 24.5 H Glucose 83 Hemoglobin A1c Calcium 7.0 L Magnesium Total Bilirubin Direct Bilirubin AST ALT Alkaline Phosphatase Troponin I C-React Prot Ext Range Total Protein Total Protein (PEP) Albumin Albumin (PEP) Globulin Globulin (PEP) Albumin/Globulin (PEP) Udtob-0-Einhqtbiv Isfxv-2-Ayljolvnm Beta Globulins Gamma Globulins M-Luis Angel Triglycerides Cholesterol LDL Cholesterol VLDL Cholesterol HDL Cholesterol Vitamin B12 Vitamin D 25-Hydroxy TSH Free T4 Cortisol Rheumatoid Factor RICH Screen c-ANCA Antibody p-ANCA Antibody AJ-1 Antibody SS-A/Ro IgG Antibody SS-B/La IgG Antibody Sm (Wiseman) Antibody [employer] Antibody Scl-70 Scleroderma Ab Double Strand DNA Ab Anti-ss DNA IgG Ab Centromere B Antibody Medical Necessity - Tobacco Use Smoking Status: Never smoker Assessment/Plan All Active Problems Hypothyroidism (Acute) Anxiety and depression (Acute) The patient is a 52 year old F with PMH HTN, Chronic LE weakness, H/O Lumbar fusion, H/O acromegaly s/p pituitary surgery, RA, anxiety/depression admitted with LE weakness. Per patient she has chronic left LE weakness for the past many years, had seen Dr. Anand in the past per patient, then since last 6 more months or so she felt her right LE was getting weak, also complaints of about 2-3 falls in the last month, uses cane to ambulate for the past month, complaints of left LE numbness but denies any numbness in the right leg. Denies any arm weakness, does not drop objects, had lumbar fusion in the past and has chronic low back pain, goes to pain management, denies any radicular symptoms, neck pain or urinary incontinence. CT head reported to show new tiny lacunae in the left BG but no acute infarct. Impression LE weakness Lumbar Radiculopathy Pituitary adenoma Plan -MRI brain w/o contrast-No acute intracranial abnormality. No infarct, hemorrhage or brain mass. Heterogenous signal abnormality in and mild expansion of the upper clivus and floor of the sella, with abnormal signal extending into the left greater than right cavernous sinus. Appearance most suspicious for residual or recurrent pituitary adenoma superimposed upon chronic postoperative changes. -MRA head/neck- No hemodynamically significant stenosis or occlusion -MRI C spine w/o contrast- Mild degenerative changes with no evidence of nerve root impingement -MRI L spine w/o contrast-At L3-4, marked bilateral facet degeneration with bilateral facet joint effusions and degenerative buckling of the ligamentum flavum combine with a moderate in size diffuse disc bulge to cause moderate to severe narrowing of the right greater than left subarticular zones, with moderate crowding of the cauda equina and possible compression of the traversing right greater than left L4 nerve roots in the subarticular zones.Facet greater than disc degeneration at L3-4 resulting in moderate to severe narrowing of the right greater than left subarticular zones, possibly compressing the traversing L4 nerve roots. Status post L4-5 posterior fusion and laminectomy with no evidence of complication. Vertebral body osteophytes extend into and moderately narrows the left foramen. -Recommend Neurosurgery consult, Endocrinology consult and spine surgery evaluation. -TSH-2.11 -Check Vitamin B12-810, Vitamin D level-15 (L), RICH/ANCA/RF/SSa/SSb Ab, SPEP with ERICA and UPEP with ERICA-pending -Recommend staring Vitamin D 6000 units PO once daily for 8 weeks then decrease to 1000 units PO BID to continue -EMG/NCS both LE as outpatient. -PT/OT -Fall precautions -GI/DVT prophylaxis -Further medical management per hospitalist team -Follow up with Neurology as outpatient in 6 weeks -Please call with questions if any -Thank you for allowing us to participate in patient's care and management.
--- NOTE | 2018-09-14 12:15 | PN.NEURO_ITS ---
Patient Problems: Active and Suspected Problems Hypothyroidism (Acute) Anxiety and depression (Acute) Subjective: No issues overnight. Care discussed with hospitalist taking of the patient. - Physical Exam General: Alert HEENT: Normocephalic Neck: Supple Lungs: Normal air movement Cardiovascular: Normal S1, Normal S2 Abdomen: Bowel Sounds Present Extremities: No cyanosis Neurological: - - consious, alert, AoA x3, CN 2-12 grossly intact, power 5/5 both UE, +4/5 both LE, no sensory loss, no cerebellar signs, Reflexes ++ B/L B/S/T/K/A, gait deferred Psych/Mental Status: Normal Affect Vital Signs Temp Pulse Resp BP Pulse Ox 99.0 F 79 16 104/76 97 09/14/18 09:05 09/14/18 11:00 09/14/18 09:05 09/14/18 09:06 09/14/18 09:05 Oxygen Delivery Method Room Air Weight: 57.697 kg Body Mass Index (BMI) 22.5 Intake and Output for Last 24 Hours 09/12/18 09/13/18 09/14/18 23:59 23:59 23:59 Intake Total 994 / 994 575 / 575 Output Total 0 / 0 200 / 200 Balance 994 / 994 375 / 375 Laboratory Tests Past 24 Hrs 09/13/18 09/13/18 09/13/18 14:45 15:22 15:22 Sodium Potassium Chloride Carbon Dioxide Anion Gap BUN Creatinine Estim Creat Clear Calc Est GFR (MDRD) Af Amer Est GFR (MDRD) Non-Af BUN/Creatinine Ratio Glucose Hemoglobin A1c Calcium Magnesium 2.0 Total Bilirubin 1.20 H Direct Bilirubin 0.87 H AST 54 H ALT 48 Alkaline Phosphatase 194 H Troponin I < 0.015 C-React Prot Ext Range 25.30 H Total Protein 4.6 L Total Protein (PEP) Albumin 1.5 L Albumin (PEP) Globulin 3.1 Globulin (PEP) Albumin/Globulin (PEP) Xkwjh-1-Pkqabahgc Mqyzj-9-Xzooicbdw Beta Globulins Gamma Globulins M-Luis Angel Triglycerides Cholesterol LDL Cholesterol VLDL Cholesterol HDL Cholesterol Vitamin B12 810 Vitamin D 25-Hydroxy 15.0 L TSH 2.11 Free T4 Cortisol 20.40 Rheumatoid Factor RICH Screen c-ANCA Antibody p-ANCA Antibody AJ-1 Antibody SS-A/Ro IgG Antibody SS-B/La IgG Antibody Sm (Wiseman) Antibody CHRONIC MANAGER Antibody Scl-70 Scleroderma Ab Double Strand DNA Ab Anti-ss DNA IgG Ab Centromere B Antibody 09/13/18 09/14/18 09/14/18 15:22 05:15 05:15 Sodium Potassium Chloride Carbon Dioxide Anion Gap BUN Creatinine Estim Creat Clear Calc Est GFR (MDRD) Af Amer Est GFR (MDRD) Non-Af BUN/Creatinine Ratio Glucose Hemoglobin A1c < 3.5 L Calcium Magnesium Total Bilirubin Direct Bilirubin AST ALT Alkaline Phosphatase Troponin I C-React Prot Ext Range Total Protein Total Protein (PEP) Albumin Albumin (PEP) Globulin Globulin (PEP) Albumin/Globulin (PEP) Kqicw-5-Xllwvidos Zzprm-3-Lryexefqm Beta Globulins Gamma Globulins M-Luis Angel Triglycerides 154 Cholesterol 107 LDL Cholesterol 32 VLDL Cholesterol 31 HDL Cholesterol 44 Vitamin B12 Vitamin D 25-Hydroxy TSH Free T4 0.63 L Cortisol Rheumatoid Factor 13.0 RICH Screen c-ANCA Antibody p-ANCA Antibody AJ-1 Antibody SS-A/Ro IgG Antibody SS-B/La IgG Antibody Sm (Wiseman) Antibody CHRONIC MANAGER Antibody Scl-70 Scleroderma Ab Double Strand DNA Ab Anti-ss DNA IgG Ab Centromere B Antibody 09/14/18 09/14/18 09/14/18 05:15 05:15 05:15 Sodium Potassium Chloride Carbon Dioxide Anion Gap BUN Creatinine Estim Creat Clear Calc Est GFR (MDRD) Af Amer Est GFR (MDRD) Non-Af BUN/Creatinine Ratio Glucose Hemoglobin A1c Calcium Magnesium Total Bilirubin Direct Bilirubin AST ALT Alkaline Phosphatase Troponin I C-React Prot Ext Range Total Protein Total Protein (PEP) Pending Albumin Albumin (PEP) Pending Globulin Globulin (PEP) Pending Albumin/Globulin (PEP) Pending Ccmpw-9-Qqjirgflo Pending Pssce-5-Lvzxetvul Pending Beta Globulins Pending Gamma Globulins Pending M-Luis Angel Pending Triglycerides Cholesterol LDL Cholesterol VLDL Cholesterol HDL Cholesterol Vitamin B12 Vitamin D 25-Hydroxy TSH Free T4 Cortisol Rheumatoid Factor RICH Screen Pending c-ANCA Antibody Pending p-ANCA Antibody Pending AJ-1 Antibody Pending SS-A/Ro IgG Antibody Pending SS-B/La IgG Antibody Pending Sm (Wiseman) Antibody Pending CHRONIC MANAGER Antibody Pending Scl-70 Scleroderma Ab Pending Double Strand DNA Ab Pending Anti-ss DNA IgG Ab Pending Centromere B Antibody Pending 09/14/18 05:15 Sodium 140 Potassium 3.7 Chloride 106 Carbon Dioxide 29.0 Anion Gap 5 BUN 13 Creatinine 0.53 L Estim Creat Clear Calc 102.71 Est GFR (MDRD) Af Amer 155 Est GFR (MDRD) Non-Af 128 BUN/Creatinine Ratio 24.5 H Glucose 83 Hemoglobin A1c Calcium 7.0 L Magnesium Total Bilirubin Direct Bilirubin AST ALT Alkaline Phosphatase Troponin I C-React Prot Ext Range Total Protein Total Protein (PEP) Albumin Albumin (PEP) Globulin Globulin (PEP) Albumin/Globulin (PEP) Xccrz-9-Omhoxexew Dwhyo-6-Yxotaifod Beta Globulins Gamma Globulins M-Luis Angel Triglycerides Cholesterol LDL Cholesterol VLDL Cholesterol HDL Cholesterol Vitamin B12 Vitamin D 25-Hydroxy TSH Free T4 Cortisol Rheumatoid Factor RICH Screen c-ANCA Antibody p-ANCA Antibody AJ-1 Antibody SS-A/Ro IgG Antibody SS-B/La IgG Antibody Sm (Wiseman) Antibody CHRONIC MANAGER Antibody Scl-70 Scleroderma Ab Double Strand DNA Ab Anti-ss DNA IgG Ab Centromere B Antibody Medical Necessity - Tobacco Use Smoking Status: Never smoker Assessment/Plan All Active Problems Hypothyroidism (Acute) Anxiety and depression (Acute) The patient is a 52 year old F with PMH HTN, Chronic LE weakness, H/O Lumbar fusion, H/O acromegaly s/p pituitary surgery, RA, anxiety/depression admitted with LE weakness. Per patient she has chronic left LE weakness for the past many years, had seen Dr. Anand in the past per patient, then since last 6 more months or so she felt her right LE was getting weak, also complaints of about 2-3 falls in the last month, uses cane to ambulate for the past month, complaints of left LE numbness but denies any numbness in the right leg. Denies any arm weakness, does not drop objects, had lumbar fusion in the past and has chronic low back pain, goes to pain management, denies any radicular symptoms, neck pain or urinary incontinence. CT head reported to show new tiny lacunae in the left BG but no acute infarct. Impression LE weakness Lumbar Radiculopathy Pituitary adenoma Plan -MRI brain w/o contrast-No acute intracranial abnormality. No infarct, hemorrhage or brain mass. Heterogenous signal abnormality in and mild expansion of the upper clivus and floor of the sella, with abnormal signal extending into the left greater than right cavernous sinus. Appearance most suspicious for residual or recurrent pituitary adenoma superimposed upon chronic postoperative changes. -MRA head/neck- No hemodynamically significant stenosis or occlusion -MRI C spine w/o contrast- Mild degenerative changes with no evidence of nerve root impingement -MRI L spine w/o contrast-At L3-4, marked bilateral facet degeneration with bilateral facet joint effusions and degenerative buckling of the ligamentum flavum combine with a moderate in size diffuse disc bulge to cause moderate to severe narrowing of the right greater than left subarticular zones, with moderate crowding of the cauda equina and possible compression of the traversing right greater than left L4 nerve roots in the subarticular zones.Facet greater than disc degeneration at L3-4 resulting in moderate to severe narrowing of the right greater than left subarticular zones, possibly compressing the traversing L4 nerve roots. Status post L4-5 posterior fusion and laminectomy with no evidence of complication. Vertebral body osteophytes extend into and moderately narrows the left foramen. -Recommend Neurosurgery consult, Endocrinology consult and spine surgery evaluation. -TSH-2.11 -Check Vitamin B12-810, Vitamin D level-15 (L), RICH/ANCA/RF/SSa/SSb Ab, SPEP with ERICA and UPEP with ERICA-pending -Recommend staring Vitamin D 6000 units PO once daily for 8 weeks then decrease to 1000 units PO BID to continue -EMG/NCS both LE as outpatient. -PT/OT -Fall precautions -GI/DVT prophylaxis -Further medical management per hospitalist team -Follow up with Neurology as outpatient in 6 weeks -Please call with questions if any -Thank you for allowing us to participate in patient's care and management.
--- NOTE | 2018-09-14 13:48 | DS.PCM_ITS ---
Discharge Date and Diagnosis Date of Admission: 09/13/18 Date of Discharge: 09/15/18 - Primary Discharge Diagnosis Active and Suspected Problems Hypothyroidism (Acute) Anxiety and depression (Acute) - Secondary Discharge Diagnosis Chronic Problems Chronic paraplegia (Chronic) Hypertension (Chronic) Acromegaly (Chronic) History of pituitary surgery (Chronic) Rheumatoid arthritis (Chronic) Leg weakness, bilateral (Chronic) Hospital Course and Treatment Summary of Care Provided: The patient is a 52 year old F with chronic left lower extremity weakness for about 8-10 years, used to follow Dr. Anand came to ED with progression of right lower extremity weakness, started about 3 months ago. This has progressed more in the last 2 weeks which led to 3 falls the last 1 month. Patient also felt increased weakness in both hands and her handwriting gotten worse. As per son, she was recently confused about a week ago and could not remember the events of recent demise of her . She was unable to ambulate to the bathroom today. She denies loss of consciousness. She denies any recent bowel or bladder incontinence. No saddle anesthesia. Denies fever or chills. 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 Chest x-ray normal. EKG shows normal sinus rhythm with low voltage QRS. Basic blood work shows hypokalemia, K2.9, H&H 10/31.0. 1. Subacute right lower extremity weakness on left lower baseline chronic left lower extremity weakness: Patient does not have signs and symptoms of upper motor neuron lesion/cord compression/saddle anesthesia. Patient is being admitted in PCU. MRI C-spine and lumbar spine ordered. Discussed with the neurologist. PT OT and speech evaluation. Fasting profile and A1c less than 3.5. MRI lumbar spine shows disc degeneration at L3-L4 resulting moderate to severe narrowing of right greater than left subarticular Marquez, compressing the traversing L4 nerve roots. 2. Tiny lacuna left basal ganglia: CT brain reported as no acute infarction. Hypokalemia: Potassium monitoring and replacement. Serum magnesium 2.0. Anemia of chronic disease: This is stable. 3. 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 MRI brain shows possible recurrence of pituitary adenoma or residual superimposed on scar tissue TSH normal. TSH low at 0.63. Cortisol 20.4. Increase Synthroid. 4. Rheumatoid arthritis with mild hand/small muscles weakness 5. Hypertension, anxiety and depression: Home medication reconciliation done. Blood pressure is controlled. DVT prophylaxis: On Lovenox 40 mg subcu daily Initially patient did not want to be transferred to tertiary care center wanted to go home but on emphasis of acuity of problem, Dr. Navarrete and myself told she is not good for discharge and she took about 2-3 hours to make decision and agreed for transfer to [facility]. Transfer line was called. The abnormal lumbar spine MRI and CT brain showing possible recurrence of pituitary adenoma or residual was discussed with neurosurgeon, Dr. Raines and hospitalist and Dr. Gant accepted the patient. Patient is transferred to [facility] under the care of Dr. Gant Clinical Impression(s) from Imaging Studies Brain CT 09/13/18 10:24 IMPRESSION: Tiny lacuna in the left basal ganglion. Brain MRI 09/13/18 14:13 IMPRESSION: No acute intracranial abnormality. No infarct, hemorrhage or brain mass. Heterogenous signal abnormality in and mild expansion of the upper clivus and floor of the sella, with abnormal signal extending into the left greater than right cavernous sinus. Appearance most suspicious for residual or recurrent pituitary adenoma superimposed upon chronic postoperative changes. Comparison with priors would be helpful. Pituitary protocol MRI with and without gadolinium would better delineate. Cervical Spine MRI 09/13/18 14:13 IMPRESSION: No acute findings. Mild degenerative changes with no evidence of nerve root impingement. Lumbar Spine MRI 09/13/18 14:13 IMPRESSION: Facet greater than disc degeneration at L3-4 resulting in moderate to severe narrowing of the right greater than left subarticular zones, possibly compressing the traversing L4 nerve roots. Status post L4-5 posterior fusion and laminectomy with no evidence of complication. Vertebral body osteophytes extend into and moderately narrows the left foramen. Head MRA 09/13/18 16:09 IMPRESSION: Unremarkable MRA head. Neck MRA 09/13/18 16:09 IMPRESSION: Unremarkable MRA neck. Brain CT 09/13/18 10:24 IMPRESSION: Tiny lacuna in the left basal ganglion. Chest X-Ray 09/13/18 10:24 IMPRESSION: No acute abnormality is seen. Subjective: Patient still complaining of being unsteady when she tries to get up on the foot. Yesterday patient was assessed by physical therapist and felt very unsteady. She agreed for going to [facility], [place]. Orthostatic blood pressure ordered - Physical Exam General: Alert, Oriented x3, Cooperative HEENT: Atraumatic, PERRLA, EOMI, Normocephalic Neck: Supple, No JVD, Negative Carotid Bruits Lungs: Clear to auscultation, Normal air movement, No rhonchi, No wheeze Cardiovascular: Regular rate, Regular Rhythm, Normal S1, Normal S2, No murmurs Abdomen: Bowel Sounds Present, Soft, Non Tender, Non-Distended Extremities: Capillary Refill Less than 3 Seconds, Edema Skin: No rashes, No breakdown Musculoskeletal: No Tenderness to Palpation of Joints or Extremities, Arthritic Changes, Muscle Wasting Neurological: Cranial nerves II-XII grossly intact, - - 1:1 visual confrontation test is negative. light left-sided facial droop. Weakness in both lower extremities, left lower extremities, strength 3-4/5; more than right. No recognizable speech abnormality. Weakness in finger abductors and adductors. Cerebellar signs negative. Psych/Mental Status: Normal Affect, Appropriate Vital Signs Temp Pulse Resp BP Pulse Ox 99.0 F 79 16 104/76 97 09/14/18 09:05 09/14/18 11:00 09/14/18 09:05 09/14/18 09:06 09/14/18 09:05 Oxygen Delivery Method Room Air Weight: 127 lb 3.2 oz Body Mass Index (BMI) 22.5 Intake and Output for Last 24 Hours 09/12/18 09/13/18 09/14/18 23:59 23:59 23:59 Intake Total 994 / 994 575 / 575 Output Total 0 / 0 200 / 200 Balance 994 / 994 375 / 375 Laboratory Tests Past 24 Hrs 09/13/18 09/13/18 09/13/18 14:45 15:22 15:22 Sodium Potassium Chloride Carbon Dioxide Anion Gap BUN Creatinine Estim Creat Clear Calc Est GFR (MDRD) Af Amer Est GFR (MDRD) Non-Af BUN/Creatinine Ratio Glucose Hemoglobin A1c Calcium Magnesium 2.0 Total Bilirubin 1.20 H Direct Bilirubin 0.87 H AST 54 H ALT 48 Alkaline Phosphatase 194 H Troponin I < 0.015 C-React Prot Ext Range 25.30 H Total Protein 4.6 L Total Protein (PEP) Albumin 1.5 L Albumin (PEP) Globulin 3.1 Globulin (PEP) Albumin/Globulin (PEP) Tkpzg-8-Iudtemkcq Xuzdp-6-Bfvnucscz Beta Globulins Gamma Globulins M-Luis Angel Triglycerides Cholesterol LDL Cholesterol VLDL Cholesterol HDL Cholesterol Vitamin B12 810 Vitamin D 25-Hydroxy 15.0 L TSH 2.11 Free T4 Cortisol 20.40 Rheumatoid Factor RICH Screen c-ANCA Antibody p-ANCA Antibody AJ-1 Antibody SS-A/Ro IgG Antibody SS-B/La IgG Antibody Sm (Wiseman) Antibody MEDICAL TECHNOLOGIST CLINICAL Antibody Scl-70 Scleroderma Ab Double Strand DNA Ab Anti-ss DNA IgG Ab Centromere B Antibody 09/13/18 09/14/18 09/14/18 15:22 05:15 05:15 Sodium Potassium Chloride Carbon Dioxide Anion Gap BUN Creatinine Estim Creat Clear Calc Est GFR (MDRD) Af Amer Est GFR (MDRD) Non-Af BUN/Creatinine Ratio Glucose Hemoglobin A1c < 3.5 L Calcium Magnesium Total Bilirubin Direct Bilirubin AST ALT Alkaline Phosphatase Troponin I C-React Prot Ext Range Total Protein Total Protein (PEP) Albumin Albumin (PEP) Globulin Globulin (PEP) Albumin/Globulin (PEP) Fouam-6-Auumxnygu Hnnlu-3-Abxrbjxqt Beta Globulins Gamma Globulins M-Luis Angel Triglycerides 154 Cholesterol 107 LDL Cholesterol 32 VLDL Cholesterol 31 HDL Cholesterol 44 Vitamin B12 Vitamin D 25-Hydroxy TSH Free T4 0.63 L Cortisol Rheumatoid Factor 13.0 RICH Screen c-ANCA Antibody p-ANCA Antibody AJ-1 Antibody SS-A/Ro IgG Antibody SS-B/La IgG Antibody Sm (Wiseman) Antibody MEDICAL TECHNOLOGIST CLINICAL Antibody Scl-70 Scleroderma Ab Double Strand DNA Ab Anti-ss DNA IgG Ab Centromere B Antibody 09/14/18 09/14/18 09/14/18 05:15 05:15 05:15 Sodium Potassium Chloride Carbon Dioxide Anion Gap BUN Creatinine Estim Creat Clear Calc Est GFR (MDRD) Af Amer Est GFR (MDRD) Non-Af BUN/Creatinine Ratio Glucose Hemoglobin A1c Calcium Magnesium Total Bilirubin Direct Bilirubin AST ALT Alkaline Phosphatase Troponin I C-React Prot Ext Range Total Protein Total Protein (PEP) Pending Albumin Albumin (PEP) Pending Globulin Globulin (PEP) Pending Albumin/Globulin (PEP) Pending Snwqs-7-Hboknryxj Pending Rkgan-3-Naxuteeyp Pending Beta Globulins Pending Gamma Globulins Pending M-Luis Angel Pending Triglycerides Cholesterol LDL Cholesterol VLDL Cholesterol HDL Cholesterol Vitamin B12 Vitamin D 25-Hydroxy TSH Free T4 Cortisol Rheumatoid Factor RICH Screen Pending c-ANCA Antibody Pending p-ANCA Antibody Pending AJ-1 Antibody Pending SS-A/Ro IgG Antibody Pending SS-B/La IgG Antibody Pending Sm (Wiseman) Antibody Pending MEDICAL TECHNOLOGIST CLINICAL Antibody Pending Scl-70 Scleroderma Ab Pending Double Strand DNA Ab Pending Anti-ss DNA IgG Ab Pending Centromere B Antibody Pending 09/14/18 05:15 Sodium 140 Potassium 3.7 Chloride 106 Carbon Dioxide 29.0 Anion Gap 5 BUN 13 Creatinine 0.53 L Estim Creat Clear Calc 102.71 Est GFR (MDRD) Af Amer 155 Est GFR (MDRD) Non-Af 128 BUN/Creatinine Ratio 24.5 H Glucose 83 Hemoglobin A1c Calcium 7.0 L Magnesium Total Bilirubin Direct Bilirubin AST ALT Alkaline Phosphatase Troponin I C-React Prot Ext Range Total Protein Total Protein (PEP) Albumin Albumin (PEP) Globulin Globulin (PEP) Albumin/Globulin (PEP) Ipvwx-6-Ekxgxxodf Irilf-4-Gqzkdleat Beta Globulins Gamma Globulins M-Luis Angel Triglycerides Cholesterol LDL Cholesterol VLDL Cholesterol HDL Cholesterol Vitamin B12 Vitamin D 25-Hydroxy TSH Free T4 Cortisol Rheumatoid Factor RICH Screen c-ANCA Antibody p-ANCA Antibody AJ-1 Antibody SS-A/Ro IgG Antibody SS-B/La IgG Antibody Sm (Wiseman) Antibody MEDICAL TECHNOLOGIST CLINICAL Antibody Scl-70 Scleroderma Ab Double Strand DNA Ab Anti-ss DNA IgG Ab Centromere B Antibody Home Medications: Medications to take at Discharge Duloxetine HCl 1 tab PO BID 08/17/18 Hydrochlorothiazide 1 tab PO DAILY 08/17/18 Levothyroxine Sodium 1 tab PO DAILY 08/17/18 Lisinopril 1 tab PO DAILY 08/17/18 Metoprolol Tartrate [Lopressor (beta jimena)] 1 tab PO DAILY 08/17/18 Oxycodone HCl/Acetaminophen [Oxycodon-Acetaminophen 7.5-325] 1 tab PO Q4H PRN PRN 08/17/18 Quetiapine Fumarate 1 tab PO QHS 08/17/18 Bupropion HCl [Wellbutrin Xl] 150 mg PO DAILY 09/13/18 Hydrocortisone [Cortef] 10 mg PO DAILY 09/13/18 Hydroxyzine Pamoate [Vistaril] 100 mg PO BID PRN PRN 09/13/18 Valacyclovir HCl [Valtrex] 2,000 mg PO BID PRN 09/13/18 Primary Care Physician: Care Physician,No Primary [Primary Care Provider] - Medical Necessity - Tobacco Use Smoking Status: Never smoker Meaningful Use Info Meaningful Use Diagnoses (Choose all that apply): None applicable Code Visit Inpatient E&M: 51395 Disch Hosp
--- NOTE | 2018-09-14 14:54 | CASEMGMT ---
Addendum entered by Arleen Acosta 09/14/18 15:29: Emotional and verbal support provided to patient as patient is reporting to have been feeling down for sometime and to be discouraged with current medical status. Patient able to verbalize support from family but to have a feeling that patient needs to take care of everyone in family and patient is currently unable to. This hospice social worker and patient discussed healthy boundaries within the family unit. Support given. JANNETTE Gil Original Note: Social Work PHQ-9 completed with patient. PHQ-9 score 10. See attached for assessment. PHQ resource guide provided to patient. JANNETTE Gil
--- NOTE | 2018-09-14 15:54 | PN_ITS ---
Patient Problems: Active and Suspected Problems Hypothyroidism (Acute) Anxiety and depression (Acute) Subjective: Patient has chronic bilateral lower extremity weakness no improvement since yesterday. No change in vitals. No fever. MRI brain, MRA head and neck, MRI C-spine and lumbar spine explained to the patient along with Dr. Navarrete. Overall Dr. Navarrete recommended to transfer to [facility] tertiary care center who has neurosurgery [facility] specialist Vitals/I&O's: Vital Signs Temp Pulse Resp BP Pulse Ox 98.9 F 72 16 124/85 H 93 09/14/18 15:05 09/14/18 15:05 09/14/18 15:05 09/14/18 15:05 09/14/18 15:05 Oxygen Delivery Method Room Air Weight: 127 lb 3.2 oz Body Mass Index (BMI) 22.5 Intake and Output for Last 24 Hours 09/12/18 09/13/18 09/14/18 23:59 23:59 23:59 Intake Total 994 / 994 1523 / 1523 Output Total 0 / 0 200 / 200 Balance 994 / 994 1323 / 1323 General: Alert, Oriented x3, Cooperative HEENT: Atraumatic, PERRLA, EOMI, Normocephalic Oral: Dry Mucosa Neck: Supple, No JVD, Negative Carotid Bruits Lungs: Clear to auscultation, No rhonchi, No wheeze, No rales Cardiovascular: Regular rate, Regular Rhythm, Normal S1, Normal S2, No murmurs Abdomen: Bowel Sounds Present, Soft, Non Tender, Non-Distended Extremities: No edema, Capillary Refill Less than 3 Seconds Skin: No rashes, No breakdown Musculoskeletal: No Tenderness to Palpation of Joints or Extremities, Arthritic Changes, Muscle Wasting, - - Unsteady on gait Lymphatic: No Cervical, Supraclavicular, or Inguinal Adenopathy Neurological: - - Slight left-sided facial droop. Weakness in both lower extremities, left lower extremities more than right. No recognizable speech abnormality. Weakness in finger abductors and adductors. Cerebellar signs negative. Psych/Mental Status: Normal Affect, Appropriate Laboratory Results 09/13/18 15:22: Cortisol 20.40 09/13/18 15:22: Vitamin B12 810, Vitamin D 25-Hydroxy 15.0 L 09/13/18 15:22: Rheumatoid Factor 13.0 09/14/18 05:15: Triglycerides 154, Cholesterol 107, LDL Cholesterol 32, VLDL Cholesterol 31, HDL Cholesterol 44, Free T4 0.63 L 09/14/18 05:15: Hemoglobin A1c < 3.5 L 09/14/18 05:15: RICH Screen Pending, AJ-1 Antibody Pending, SS-A/Ro IgG Antibody Pending, SS-B/La IgG Antibody Pending, Sm (Wiseman) Antibody Pending, DEAN OF WOMEN Antibody Pending, Scl-70 Scleroderma Ab Pending, Double Strand DNA Ab Pending, Centromere B Antibody Pending 09/14/18 05:15: c-ANCA Antibody Pending, p-ANCA Antibody Pending, Anti-ss DNA IgG Ab Pending 09/14/18 05:15: Total Protein (PEP) Pending, Albumin (PEP) Pending, Globulin (PEP) Pending, Albumin/Globulin (PEP) Pending, Kxdhx-3-Cvupfxocw Pending, Fjpqm-6-Wyrmnmfea Pending, Beta Globulins Pending, Gamma Globulins Pending, M- Luis Angel Pending 09/14/18 05:15: Sodium 140, Potassium 3.7, Chloride 106, Carbon Dioxide 29.0, Anion Gap 5, BUN 13, Creatinine 0.53 L, Estim Creat Clear Calc 102.71, Est GFR (MDRD) Af Amer 155, Est GFR (MDRD) Non-Af 128, BUN/Creatinine Ratio 24.5 H, Glucose 83, Calcium 7.0 L Current Medications Acetaminophen (Tylenol) 650 mg PO Q4H PRN PRN PRN Reason: Headache/Temp>99F Acyclovir (Zovirax) 800 mg PO Q6H PRN PRN Reason: outbreak Aspirin (Aspirin, Baby) 81 mg PO DAILY@0800 [facility] Last Admin: 09/14/18 08:59 Dose: 81 mg Atorvastatin Calcium (Lipitor) 80 mg PO QHS [facility] Last Admin: 09/13/18 22:09 Dose: 80 mg Bupropion HCl (Wellbutrin Xl) 150 mg PO DAILY [facility] Last Admin: 09/14/18 09:06 Dose: 150 mg Clopidogrel Bisulfate (Plavix) 75 mg PO DAILY [facility] Last Admin: 09/14/18 09:07 Dose: 75 mg Duloxetine HCl (Cymbalta) 60 mg PO BID [facility] Last Admin: 09/14/18 09:06 Dose: 60 mg Enoxaparin Sodium (Lovenox) 40 mg SC DAILY [facility] Last Admin: 09/14/18 09:07 Dose: 40 mg Famotidine (Pepcid) 20 mg PO BID [facility] Last Admin: 09/14/18 06:08 Dose: 20 mg Hydrochlorothiazide () 12.5 mg PO DAILY [facility] Last Admin: 09/14/18 09:07 Dose: 12.5 mg Hydrocortisone (Cortef) 10 mg PO DAILY@0800 [facility] Last Admin: 09/14/18 08:59 Dose: 10 mg Hydroxyzine Pamoate (Vistaril Pamoate Capsule) 100 mg PO BID PRN PRN PRN Reason: ANXIETY Sodium Chloride () 1,000 mls @ 100 mls/hr IV .Q10H [facility] Last Admin: 09/14/18 13:53 Dose: Not Given Levothyroxine Sodium (Synthroid) 125 mcg PO DAILY@0600 [facility] Last Admin: 09/14/18 06:04 Dose: 125 mcg Metoprolol Tartrate (Lopressor (Beta Jordan)) 25 mg PO DAILY [facility] Last Admin: 09/14/18 09:06 Dose: 25 mg Ondansetron HCl (Zofran) 4 mg IV Q6H PRN PRN PRN Reason: NAUSEA Last Admin: 09/13/18 19:04 Dose: 4 mg Oxycodone HCl (Oxyir) 7.5 mg PO Q4H PRN PRN PRN Reason: PAIN Last Admin: 09/14/18 15:15 Dose: 7.5 mg Potassium Ch[facility] ([facility]Dur) [facility] Stop: 09/14/18 17:01 Last Admin: 09/14/18 08:58 Dose: 40 meq Potassium Chloride (K-Dur) [facility] Quetiapine Fumarate (Seroquel) 100 mg PO QHS [facility] Last Admin: 09/13/18 22:09 Dose: 100 mg Sodium Chloride () 5 - 15 ml IV UD PRN PRN Reason: SALINE FLUSH Last Admin: 09/13/18 22:11 Dose: 10 ml Throat Lozenges (Cepacol Sore Throat Lozenge) 1 lozenge MUCOUS MEM Q2H PRN PRN PRN Reason: sore throat Last Admin: 09/14/18 06:21 Dose: 1 lozenge Medical Necessity - Tobacco Use Smoking Status: Never smoker Assessment/Plan All Active Problems Hypothyroidism (Acute) Anxiety and depression (Acute) The patient is a 52 year old F with chronic left lower extremity weakness for about 8-10 years, used to follow Dr. Anand came to ED with progression of right lower extremity weakness, started about 3 months ago. This has progressed more in the last 2 weeks which led to 3 falls the last 1 month. Patient also felt increased weakness in both hands and her handwriting gotten worse. As per son, she was recently confused about a week ago and could not remember the events of recent demise of her . She was unable to ambulate to the bathroom today. She denies loss of consciousness. She denies any recent bowel or bladder incontinence. No saddle anesthesia. Denies fever or chills. 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 Chest x-ray normal. EKG shows normal sinus rhythm with low voltage QRS. Basic blood work shows hypokalemia, K2.9, H&H 10/31.0. 1. Subacute right lower extremity weakness on left lower baseline chronic left lower extremity weakness: Patient does not have signs and symptoms of upper motor neuron lesion/cord compression/saddle anesthesia. Patient is being admitted in PCU. MRI C-spine and lumbar spine ordered. Discussed with the neurologist. PT OT and speech evaluation. Fasting profile and A1c less than 3.5. MRI lumbar spine shows disc degeneration at L3-L4 resulting moderate to severe narrowing of right greater than left subarticular Marquez, compressing the traversing L4 nerve roots. 2. Tiny lacuna left basal ganglia: CT brain reported as no acute infarction. Hypokalemia: Potassium monitoring and replacement. Serum magnesium 2.0. Anemia of chronic disease: This is stable. 3. 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 MRI brain shows possible recurrence of pituitary adenoma or residual superimposed on scar tissue TSH normal. TSH low at 0.63. Cortisol 20.4. Increase Synthroid. 4. Rheumatoid arthritis with mild hand/small muscles weakness 5. Hypertension, anxiety and depression: Home medication reconciliation done. Blood pressure is controlled. DVT prophylaxis: On Lovenox 40 mg subcu daily Initially patient did not want to be transferred to tertiary care center wanted to go home but on emphasis of acuity of problem, Dr. Navarrete and myself told she is not good for discharge and she took about 2-3 hours to make decision and agreed for transfer to [facility]. Transfer line was called. The abnormal lumbar spine MRI and CT brain showing possible recurrence of pituit donovan adenoma or residual was discussed with neurosurgeon, Dr. Raines and hospitalist and accepted the patient. They do not have beds that is why patient still in the hospital. Clinical Impression(s) from Imaging Studies Brain CT 09/13/18 10:24 IMPRESSION: Tiny lacuna in the left basal ganglion. Electronically Signed: Jamshid Castillo MD at 11:26 EST , Service support , Chest X-Ray 09/13/18 10:24 IMPRESSION: No acute abnormality is seen. Electronically Signed: Jamshid Castillo MD at 10:48 EST , Service support , Brain MRI 09/13/18 14:13 IMPRESSION: No acute intracranial abnormality. No infarct, hemorrhage or brain mass. Heterogenous signal abnormality in and mild expansion of the upper clivus and floor of the sella, with abnormal signal extending into the left greater than right cavernous sinus. Appearance most suspicious for residual or recurrent pituitary adenoma superimposed upon chronic postoperative changes. Comparison with priors would be helpful. Pituitary protocol MRI with and without gadolinium would better delineate. Cervical Spine MRI 09/13/18 14:13 IMPRESSION: No acute findings. Mild degenerative changes with no evidence of nerve root impingement. Lumbar Spine MRI 09/13/18 14:13 IMPRESSION: Facet greater than disc degeneration at L3-4 resulting in moderate to severe narrowing of the right greater than left subarticular zones, possibly compressing the traversing L4 nerve roots. Status post L4-5 posterior fusion and laminectomy with no evidence of complication. Vertebral body osteophytes extend into and moderately narrows the left foramen. Head MRA 09/13/18 16:09 IMPRESSION: Unremarkable MRA head. Neck MRA 09/13/18 16:09 IMPRESSION: Unremarkable MRA neck. Brain CT 09/13/18 10:24 IMPRESSION: Tiny lacuna in the left basal ganglion. Chest X-Ray 09/13/18 10:24 IMPRESSION: No acute abnormality is seen. Active Medications Acetaminophen (Tylenol) 650 mg PO Q4H PRN PRN PRN Reason: Headache/Temp>99F Aspirin (Aspirin, Baby) 81 mg PO DAILY@0800 [facility] Atorvastatin Calcium (Lipitor) 80 mg PO QHS [facility] Bupropion HCl (Wellbutrin Xl) 150 mg PO DAILY [facility] Clopidogrel Bisulfate (Plavix) 75 mg PO DAILY [facility] Duloxetine HCl (Cymbalta) mg PO BID [facility] Famotidine (Pepcid) 20 mg PO BID [facility] Hydrochlorothiazide () mg PO DAILY [facility] Hydrocortisone (Cortef) 10 mg PO DAILY [facility] Sodium Chloride () 1,000 mls @ 100 mls/hr IV .Q10H [facility] Levothyroxine Sodium (Synthroid) mcg PO DAILY [facility] Metoprolol Tartrate (Lopressor (Beta Jordna)) mg PO DAILY [facility] Non-Formulary Medication (Hydroxyzine Pamoate [Vistaril]) 100 mg PO BID PRN PRN PRN Reason: ANXIETY Non-Formulary Medication (Oxycodone Hcl/Acetaminophen [Oxycodon-Acetaminophen 7.5-325]) 1 tab PO Q4H PRN PRN PRN Reason: PAIN Non-Formulary Medication (Valacyclovir Hcl) 2,000 mg PO BID PRN PRN Reason: outbreak Potassium Chloride (K-Dur) [facility] Stop: 09/14/18 17:01 Quetiapine Fumarate (Seroquel) mg PO QHS [facility] Code Visit Inpatient E&M: 29174 Subs Hosp L3
[2018-09-14] MEDS: Ondansetron 4 MG/2 ML Vial IV (19:24)
[2018-09-14] MEDS: Atorvastatin Calcium 80 MG Tablet PO (21:16)
[2018-09-14] MEDS: QUEtiapine 100 MG Tablet PO (21:16)
[2018-09-15] VITALS (8 sets, daily range): BP systolic 101–112; BP diastolic 70–80; PULSE 74–100; RESP 16; TEMP 36.9–37.2; O2SAT 93–98; BMI 22.5
--- NOTE | 2018-09-15 02:56 | NURSING ---
Pt. woke up confused, did not know where she was and was asking where her was who in July. Pt. asking where her son and grandson are. Oriented to person, and time, at first. Reoriented pt., took her to [facility], now knows she is in hospital. At times asks where her is, but when told No and prompted about her she can tell me he of cancer. While typing this note she just said, SO it's true Neo ? Pt. states she is going to go to grief counseling in [place] with her friend whose son recently . Will continue to monitor pt.
[2018-09-15] MEDS: BENZOCAINE/MENTHOL 1 LOZENGE MUCOUS MEM (03:17)
[2018-09-15] MEDS: 0.9% Normal Saline 1,000 ML 100 ML IV ×2 (03:19→11:53)
[2018-09-15] MEDS: oxyCODONE 5 MG Tablet 7.5 MG PO ×3 (03:34→13:43)
[2018-09-15] MEDS: Levothyroxine 150 MCG Tablet PO (06:09)
[2018-09-15 06:16] LABS: Absolute Lymphocyte Count 1.54 X10^3/ul (0.83-4.51); Absolute Neutrophil Count 4.5 X10^3/uL (2.0-7.7); Basophil# 0.01 X10^3/uL; Basophil% 0.1 % (0-1); Eosinophil# 0.15 X10^3/uL; Eosinophils% 2.2 % (0-5); Hemoglobin 8.3 g/dl (12.0-15.0); Lymphocyte # 1.54 X10^3/ul (4.0); Lymphocyte % 22.6 % (19-41); Mean Corp Hgb Conc 30.7 g/gl (32-36); Mean Corpuscular Hgb 31.3 pg (27.0-32.0); Mean Corpuscular Volume 101.9 fL (81-99); Monocyte# 0.57 X10^3/uL; Monocyte% 8.4 % (0-10); Neutrophil # 4.52 X10^3/uL (2.7-7.7); Neutrophil % 66.4 % (47-70); Platelet Count 377 K/mm3 (150-450); RBC Distribution Width CV 15.9 % (11.6-14.6); RBC Distribution Width SD 54.4 fl (35.1-43.9); Red Blood Count 2.65 M/mm3 (4.2-5.4); White Blood Count 6.8 K/mm3 (4.4-11.0)
[2018-09-15 06:19] LABS: POSITIVE COUNT NO; POSITIVE DIFFERENTIAL NO; POSITIVE MORPHOLOGY NO
[2018-09-15 06:44] LABS: Anion Gap 7 (5-15); BUN 14 mg/dL (7-18); BUN/Creat Ratio 27.9 RATIO (10-20); Chloride 106 mmol/L (98-107); EST Glomerular Filtration Rate 137 mL/min (>60); Est Glom Filt Rate - Afr Amer 165 mL/min (>60); Estimated Creatinine Clearance 108.88 ml/min; Glucose 69 mg/dL (74-106); Potassium 4.8 mmol/L (3.5-5.1); Sodium Level 140 mmol/L (136-145)
[2018-09-15] MEDS: hydroCHLOROthiazide 12.5mg 12.5 MG PO (08:30)
[2018-09-15] MEDS: Enoxaparin 40 MG/0.4 ML Syringe SC (08:30)
[2018-09-15] MEDS: Famotidine 20 MG Tablet PO (08:30)
[2018-09-15] MEDS: Hydrocortisone 10 MG Tablet PO (08:30)
[2018-09-15] MEDS: Aspirin 81 MG TAB.CHEW PO (08:31)
[2018-09-15] MEDS: buPROPion (XL) 150 MG TABLET.XL PO (08:31)
[2018-09-15] MEDS: Clopidogrel Bisulfate 75 MG Tablet PO (08:31)
[2018-09-15] MEDS: Metoprolol Tartrate 25 MG Tablet PO (08:31)
[2018-09-15] MEDS: DULoxetine Hcl 60 MG Capsule PO (08:31)
--- NOTE | 2018-09-15 11:23 | PCM.DC.SUM ---
Discharge Date and Diagnosis Date of Admission: 09/13/18 Date of Discharge: 09/15/18 - Primary Discharge Diagnosis Active and Suspected Problems Hypothyroidism (Acute) Anxiety and depression (Acute) - Secondary Discharge Diagnosis Chronic Problems Chronic paraplegia (Chronic) Hypertension (Chronic) Acromegaly (Chronic) History of pituitary surgery (Chronic) Rheumatoid arthritis (Chronic) Leg weakness, bilateral (Chronic) Hospital Course and Treatment Summary of Care Provided: The patient is a 52 year old F with chronic left lower extremity weakness for about 8-10 years, used to follow Dr. Anand came to ED with progression of right lower extremity weakness, started about 3 months ago. This has progressed more in the last 2 weeks which led to 3 falls the last 1 month. Patient also felt increased weakness in both hands and her handwriting gotten worse. As per son, she was recently confused about a week ago and could not remember the events of recent demise of her . She was unable to ambulate to the bathroom today. She denies loss of consciousness. She denies any recent bowel or bladder incontinence. No saddle anesthesia. Denies fever or chills. 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 Chest x-ray normal. EKG shows normal sinus rhythm with low voltage QRS. Basic blood work shows hypokalemia, K2.9, H&H 10/31.0. 1. Subacute right lower extremity weakness on left lower baseline chronic left lower extremity weakness: Patient does not have signs and symptoms of upper motor neuron lesion/cord compression/saddle anesthesia. Patient is being admitted in PCU. MRI C-spine and lumbar spine ordered. Discussed with the neurologist. PT OT and speech evaluation. Fasting profile and A1c less than 3.5. MRI lumbar spine shows disc degeneration at L3-L4 resulting moderate to severe narrowing of right greater than left subarticular Marquez, compressing the traversing L4 nerve roots. 2. Tiny lacuna left basal ganglia: CT brain reported as no acute infarction. Hypokalemia: Potassium monitoring and replacement. Serum magnesium 2.0. Anemia of chronic disease: This is stable. 3. 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 MRI brain shows possible recurrence of pituitary adenoma or residual superimposed on scar tissue TSH normal. TSH low at 0.63. Cortisol 20.4. Increase Synthroid. 4. Rheumatoid arthritis with mild hand/small muscles weakness 5. Hypertension, anxiety and depression: Home medication reconciliation done. Blood pressure is controlled. DVT prophylaxis: On Lovenox 40 mg subcu daily Initially patient did not want to be transferred to tertiary care center wanted to go home but on emphasis of acuity of problem, Dr. Navarrete and myself told she is not good for discharge and she took about 2-3 hours to make decision and agreed for transfer to [facility]. Transfer line was called. The abnormal lumbar spine MRI and CT brain showing possible recurrence of pituitary adenoma or residual was discussed with neurosurgeon, Dr. Raines and hospitalist and Dr. Gant accepted the patient. Patient is transferred to [facility] under the care of Dr. Gant Clinical Impression(s) from Imaging Studies Brain CT 09/13/18 10:24 IMPRESSION: Tiny lacuna in the left basal ganglion. Brain MRI 09/13/18 14:13 IMPRESSION: No acute intracranial abnormality. No infarct, hemorrhage or brain mass. Heterogenous signal abnormality in and mild expansion of the upper clivus and floor of the sella, with abnormal signal extending into the left greater than right cavernous sinus. Appearance most suspicious for residual or recurrent pituitary adenoma superimposed upon chronic postoperative changes. Comparison with priors would be helpful. Pituitary protocol MRI with and without gadolinium would better delineate. Cervical Spine MRI 09/13/18 14:13 IMPRESSION: No acute findings. Mild degenerative changes with no evidence of nerve root impingement. Lumbar Spine MRI 09/13/18 14:13 IMPRESSION: Facet greater than disc degeneration at L3-4 resulting in moderate to severe narrowing of the right greater than left subarticular zones, possibly compressing the traversing L4 nerve roots. Status post L4-5 posterior fusion and laminectomy with no evidence of complication. Vertebral body osteophytes extend into and moderately narrows the left foramen. Head MRA 09/13/18 16:09 IMPRESSION: Unremarkable MRA head. Neck MRA 09/13/18 16:09 IMPRESSION: Unremarkable MRA neck. Brain CT 09/13/18 10:24 IMPRESSION: Tiny lacuna in the left basal ganglion. Chest X-Ray 09/13/18 10:24 IMPRESSION: No acute abnormality is seen. Subjective: Patient still complaining of being unsteady when she tries to get up on the foot. Yesterday patient was assessed by physical therapist and felt very unsteady. She agreed for going to [facility], [place]. Orthostatic blood pressure ordered - Physical Exam General: Alert, Oriented x3, Cooperative HEENT: Atraumatic, PERRLA, EOMI, Normocephalic Neck: Supple, No JVD, Negative Carotid Bruits Lungs: Clear to auscultation, Normal air movement, No rhonchi, No wheeze Cardiovascular: Regular rate, Regular Rhythm, Normal S1, Normal S2, No murmurs Abdomen: Bowel Sounds Present, Soft, Non Tender, Non-Distended Extremities: Capillary Refill Less than 3 Seconds, Edema Skin: No rashes, No breakdown Musculoskeletal: No Tenderness to Palpation of Joints or Extremities, Arthritic Changes, Muscle Wasting Neurological: Cranial nerves II-XII grossly intact, - - 1:1 visual confrontation test is negative. light left-sided facial droop. Weakness in both lower extremities, left lower extremities, strength 3-4/5; more than right. No recognizable speech abnormality. Weakness in finger abductors and adductors. Cerebellar signs negative. Psych/Mental Status: Normal Affect, Appropriate Vital Signs Temp Pulse Resp BP Pulse Ox 99.0 F 79 16 104/76 97 09/14/18 09:05 09/14/18 11:00 09/14/18 09:05 09/14/18 09:06 09/14/18 09:05 Oxygen Delivery Method Room Air Weight: 127 lb 3.2 oz Body Mass Index (BMI) 22.5 Intake and Output for Last 24 Hours 09/12/18 09/13/18 09/14/18 23:59 23:59 23:59 Intake Total 994 / 994 575 / 575 Output Total 0 / 0 200 / 200 Balance 994 / 994 375 / 375 Laboratory Tests Past 24 Hrs 09/13/18 09/13/18 09/13/18 14:45 15:22 15:22 Sodium Potassium Chloride Carbon Dioxide Anion Gap BUN Creatinine Estim Creat Clear Calc Est GFR (MDRD) Af Amer Est GFR (MDRD) Non-Af BUN/Creatinine Ratio Glucose Hemoglobin A1c Calcium Magnesium 2.0 Total Bilirubin 1.20 H Direct Bilirubin 0.87 H AST 54 H ALT 48 Alkaline Phosphatase 194 H Troponin I < 0.015 C-React Prot Ext Range 25.30 H Total Protein 4.6 L Total Protein (PEP) Albumin 1.5 L Albumin (PEP) Globulin 3.1 Globulin (PEP) Albumin/Globulin (PEP) Qdqit-7-Erytnnzvv Xacss-6-Kmumywavx Beta Globulins Gamma Globulins M-Luis Angel Triglycerides Cholesterol LDL Cholesterol VLDL Cholesterol HDL Cholesterol Vitamin B12 810 Vitamin D 25-Hydroxy 15.0 L TSH 2.11 Free T4 Cortisol 20.40 Rheumatoid Factor RICH Screen c-ANCA Antibody p-ANCA Antibody AJ-1 Antibody SS-A/Ro IgG Antibody SS-B/La IgG Antibody Sm (Wiseman) Antibody [employer] Antibody Scl-70 Scleroderma Ab Double Strand DNA Ab Anti-ss DNA IgG Ab Centromere B Antibody 09/13/18 09/14/18 09/14/18 15:22 05:15 05:15 Sodium Potassium Chloride Carbon Dioxide Anion Gap BUN Creatinine Estim Creat Clear Calc Est GFR (MDRD) Af Amer Est GFR (MDRD) Non-Af BUN/Creatinine Ratio Glucose Hemoglobin A1c < 3.5 L Calcium Magnesium Total Bilirubin Direct Bilirubin AST ALT Alkaline Phosphatase Troponin I C-React Prot Ext Range Total Protein Total Protein (PEP) Albumin Albumin (PEP) Globulin Globulin (PEP) Albumin/Globulin (PEP) Kzxbx-6-Dbxoiynut Bfnii-5-Hcusvceor Beta Globulins Gamma Globulins M-Luis Angel Triglycerides 154 Cholesterol 107 LDL Cholesterol 32 VLDL Cholesterol 31 HDL Cholesterol 44 Vitamin B12 Vitamin D 25-Hydroxy TSH Free T4 0.63 L Cortisol Rheumatoid Factor 13.0 RICH Screen c-ANCA Antibody p-ANCA Antibody AJ-1 Antibody SS-A/Ro IgG Antibody SS-B/La IgG Antibody Sm (Wiseman) Antibody HE[employer] IN[employer]CTOR Antibody Scl-70 Scleroderma Ab Double Strand DNA Ab Anti-ss DNA IgG Ab Centromere B Antibody 09/14/18 09/14/18 09/14/18 05:15 05:15 05:15 Sodium Potassium Chloride Carbon Dioxide Anion Gap BUN Creatinine Estim Creat Clear Calc Est GFR (MDRD) Af Amer Est GFR (MDRD) Non-Af BUN/Creatinine Ratio Glucose Hemoglobin A1c Calcium Magnesium Total Bilirubin Direct Bilirubin AST ALT Alkaline Phosphatase Troponin I C-React Prot Ext Range Total Protein Total Protein (PEP) Pending Albumin Albumin (PEP) Pending Globulin Globulin (PEP) Pending Albumin/Globulin (PEP) Pending Qbblh-3-Kqciuwblu Pending Npokt-9-Osmxpgfbl Pending Beta Globulins Pending Gamma Globulins Pending M-Luis Angel Pending Triglycerides Cholesterol LDL Cholesterol VLDL Cholesterol HDL Cholesterol Vitamin B12 Vitamin D 25-Hydroxy TSH Free T4 Cortisol Rheumatoid Factor RICH Screen Pending c-ANCA Antibody Pending p-ANCA Antibody Pending AJ-1 Antibody Pending SS-A/Ro IgG Antibody Pending SS-B/La IgG Antibody Pending Sm (Wiseman) Antibody Pending HE[employer]CTOR Antibody Pending Scl-70 Scleroderma Ab Pending Double Strand DNA Ab Pending Anti-ss DNA IgG Ab Pending Centromere B Antibody Pending 09/14/18 05:15 Sodium 140 Potassium 3.7 Chloride 106 Carbon Dioxide 29.0 Anion Gap 5 BUN 13 Creatinine 0.53 L Estim Creat Clear Calc 102.71 Est GFR (MDRD) Af Amer 155 Est GFR (MDRD) Non-Af 128 BUN/Creatinine Ratio 24.5 H Glucose 83 Hemoglobin A1c Calcium 7.0 L Magnesium Total Bilirubin Direct Bilirubin AST ALT Alkaline Phosphatase Troponin I C-React Prot Ext Range Total Protein Total Protein (PEP) Albumin Albumin (PEP) Globulin Globulin (PEP) Albumin/Globulin (PEP) Phakn-3-Pttdblkqv Xgwco-1-Sudzzddyw Beta Globulins Gamma Globulins M-Luis Angel Triglycerides Cholesterol LDL Cholesterol VLDL Cholesterol HDL Cholesterol Vitamin B12 Vitamin D 25-Hydroxy TSH Free T4 Cortisol Rheumatoid Factor RICH Screen c-ANCA Antibody p-ANCA Antibody AJ-1 Antibody SS-A/Ro IgG Antibody SS-B/La IgG Antibody Sm (Wiseman) Antibody HE[employer] IN[employer]CTOR Antibody Scl-70 Scleroderma Ab Double Strand DNA Ab Anti-ss DNA IgG Ab Centromere B Antibody Home Medications: Medications to take at Discharge Duloxetine HCl 1 tab PO BID 08/17/18 Hydrochlorothiazide 1 tab PO DAILY 08/17/18 Levothyroxine Sodium 1 tab PO DAILY 08/17/18 Lisinopril 1 tab PO DAILY 08/17/18 Metoprolol Tartrate [Lopressor (beta jimena)] 1 tab PO DAILY 08/17/18 Oxycodone HCl/Acetaminophen [Oxycodon-Acetaminophen 7.5-325] 1 tab PO Q4H PRN PRN 08/17/18 Quetiapine Fumarate 1 tab PO QHS 08/17/18 Bupropion HCl [Wellbutrin Xl] 150 mg PO DAILY 09/13/18 Hydrocortisone [Cortef] 10 mg PO DAILY 09/13/18 Hydroxyzine Pamoate [Vistaril] 100 mg PO BID PRN PRN 09/13/18 Valacyclovir HCl [Valtrex] 2,000 mg PO BID PRN 09/13/18 Primary Care Physician: Care Physician,No Primary [Primary Care Provider] - Medical Necessity - Tobacco Use Smoking Status: Never smoker Meaningful Use Info Meaningful Use Diagnoses (Choose all that apply): None applicable Code Visit Inpatient E&M: 95018 Disch Hosp
--- NOTE | 2018-09-15 14:24 | PCA ---
Spoke with son Arnie on the phone and let him know that we got a bed at [facility] and told him the bed number and that we would be setting up transport for her.
--- NOTE | 2018-09-15 14:28 | NURSING ---
This RN called and gave report to LILIAN Mullins from [facility].
[2018-09-15] MEDS: Acetaminophen 325 MG Tablet 650 MG PO (14:39)
[2018-09-15 16:08] LABS: PROEL- A/G Ratio 0.8 (0.7-1.7); PROEL- Albumin 1.9 g/dL (2.9-4.4); PROEL- Alpha-1 Globulin 0.2 g/dL (0.0-0.4); PROEL- Alpha-2 Globulin 0.5 g/dL (0.4-1.0); PROEL- Beta Globulin 0.8 g/dL (0.7-1.3); PROEL- Gamma Globulin 0.9 g/dL (0.4-1.8); PROEL- Globulin, Total 2.4 g/dL (2.2-3.9); PROEL- TOTAL PROTEIN 4.3 g/dL (6.0-8.5)
[2018-09-15 16:59] LABS: ANTINUCLEAR ANTIBODIES DIRECT Negative (Negative)
[2018-09-17 12:07] LABS: Cytoplasmic Ab (C-ANCA) <1:20 titer (Neg:<1:20)
[2018-09-17 12:48] LABS: Perinuclear Ab (P-ANCA) <1:20 titer (Neg:<1:20)
== END 2018-09-15 15:15 | disposition short-term general hospital (02) ==
LOC: ED 10:29 → PCU 13:25
PROVIDERS: Psychiatry & Neurology Neurology; Admitting Provider Internal Medicine; Emergency Provider Emergency Medicine; Referring Provider Internal Medicine; Visit Provider Internal Medicine
DX: R53.1 Weakness (principal); E44.0 Moderate protein-calorie malnutrition; E03.9 Hypothyroidism, unspecified; M06.9 Rheumatoid arthritis, unspecified; I10 Essential (primary) hypertension; G82.20 Paraplegia, unspecified; F41.9 Anxiety disorder, unspecified; F32.9 Major depressive disorder, single episode, unspecified; E22.0 Acromegaly and pituitary gigantism; R29.6 Repeated falls; E87.6 Hypokalemia; Z79.899 Other long term (current) drug therapy; Z68.22 Body mass index [BMI] 22.0-22.9, adult; R29.810 Facial weakness; D63.8 Anemia in other chronic diseases classified elsewhere; G89.29 Other chronic pain; D35.2 Benign neoplasm of pituitary gland
CPT/HCPCS: 36415; 70450; 70544; 70549; 70551; 71045; 72141; 72148; 80048; 80061; 80076; 82306; 82533; 82607; 83036; 83735; 84165; 84166; 84439; 84443; 84484; 85025; 86038; 86140; 86225; 86226; 86235; 86256; 86431; 92526; 92610; 93005; 93306; 96361; 96372; 96374; 96375; 96376; 97110; 97163; 97166; 97530; 97802; 99218; 99283; A9585; J7030; A4216; G0378; J2405

== ENCOUNTER 2018-10-20 13:19 | Inpatient (IN) | payer MEDICARE, SELFPAY ==
[2018-09-15 07:52] VITALS: BMI 22.5
[2018-10-20] VITALS (7 sets, daily range): BP systolic 113–126; BP diastolic 84–109; PULSE 66–94; RESP 13–18; TEMP 36.4–36.8; O2SAT 98–100; BMI 19.8; BMI 20.5
--- NOTE | 2018-10-20 13:53 | ED.VIS.GEN ---
History of Present Illness Chief Complaint: Abn Labs Detail of Chief Complaint: low K+ Informant: Patient Onset: - - unk -- see below Quality: low K+ -- 2.0 drawn 2d ago per pt Narrative: Patient was recently admitted to the hospital for worsening lower extremity weakness, inability to ambulate, multiple falls with head injuries, and protein calorie malnutrition. About a month ago while here she was transferred to [facility] out of concern for possible recurrence of her pituitary adenoma. Since home she is felt malaised and weak, she cannot tell me when things began to worsen, but now her legs are very weak and she had outpatient labs 2 days ago that showed very low potassium at 2.0. She was sent to the ED due to that abnormality. She states she has had very poor oral intake and appetite in addition to increasing weight loss this past month. She had vomiting while she was at [facility], as a result she had a scope that showed irritation in her stomach, she had a prior gastric bypass. - Past Medical History (1) Anxiety and depression Status: Chronic (2) Hypothyroidism Status: Chronic (3) Acromegaly Status: Chronic (4) Chronic paraplegia Status: Chronic (5) Hypertension Status: Chronic (6) Rheumatoid arthritis Status: Chronic Past Medical History - Allergies and Home Meds Allergies/Adverse Reactions: Allergies No Known Allergies Allergy (Verified 10/20/18 13:20) Primary Care Physician: Tom Roberto MD [Primary Care Provider] - Lives: Alone Smoking Status: Never smoker - Family History Paternal Family History: Reports: No pertinent history - no Family history of neurological disease in parents Review of Systems General: Reports: Malaise, Weight loss. Denies: Chills, Fever Eyes: Denies: Visual changes - bilaterally, Diplopia ENT: Denies: Rhinorrhea, Sore throat Cardiovascular: Denies: Chest pain, Palpitations Respiratory: Denies: Dyspnea, Cough, Dyspnea on exertion Gastrointestinal: Reports: Nausea Genitourinary: Denies: Dysuria, Hematuria, Frequency Musculoskeletal: Denies: Neck pain, Back pain, Extremity Pain Skin: Denies: Rash, Wounds Neurological: Reports: Weakness - BLE chronic. Denies: Headache, Numbness Physical Exam Vital Signs/Narrative: Vital Signs Temp Pulse Resp BP Pulse Ox 10/20/18 13:20 98.3 F 94 18 123/84 H 100 Inital Vital Signs reviewed: Yes General: Well nourished, Well developed, No Acute Distress Head: Normocephalic, Atraumatic. Negative for: Tenderness Eyes: Perrl, EOMI ENT: Moist mucous membranes, No rhinorrhea Neck: Supple, Nontender Cardiovascular: Regular rate, Regular rhythm, No murmurs Respiratory: No distress, CTA bilaterally, Chest nontender Abdomen: Soft, Nontender, Nondistended, Normal bowel sounds Back: Nontender, Normal Inspection Extremities: Nontender, No edema Skin: Normal color, No rash, No Trauma Neurological: Alert, Oriented x3, Cranial nerves II-XII grossly intact, Normal Sensation, Weakness - BLE Psychological: Normal affect, Normal Mood Diagnostic/Tx/Re-eval Laboratory Tests 10/20/18 10/20/18 Range/Units 13:56 13:56 WBC 5.5 (4.4-11.0) K/mm3 RBC 2.86 L (4.2-5.4) M/mm3 Hgb 9.6 L (12.0-15.0) g/dl Hct 28.9 L (37-47) % MCV 101.0 H (81-99) fL MCH 33.6 H (27.0-32.0) pg MCHC 33.2 (32-36) g/gl RDW 14.6 (11.6-14.6) % RDW Differential 52.4 H (35.1-43.9) fl Plt Count 274 (150-450) K/mm3 MPV 8.2 (6.2-12.0) fl Immature Gran % (Auto) 0.200 (0.0-0.9) % Neut % (Auto) 65.6 (47-70) % Lymph % (Auto) 24.7 (19-41) % [place] % (Auto) 5.7 (0-10) % Eos % (Auto) 3.8 (0-5) % Baso % (Auto) 0.0 (0-1) % Absolute Neuts (auto) 3.6 (2.0-7.7) X10^3/uL Absolute Lymphs (auto) 1.35 (0.83-4.51) X10^3/ul Total Counted Not Reportable Sodium 141 (136-145) mmol/L Potassium 2.2 L* (3.5-5.1) mmol/L Chloride 102 (98-107) mmol/L Carbon Dioxide 32.0 (21.0-32.0) mmol/L Anion Gap 7 (5-15) BUN 9 (7-18) mg/dL Creatinine 0.50 L (0.55-1.02) mg/dL Estim Creat Clear Calc 105.56 ml/min Est GFR (MDRD) Af Amer 168 (>60) mL/min Est GFR (MDRD) Non-Af 139 (>60) mL/min BUN/Creatinine Ratio 18.2 (10-20) RATIO Glucose 102 (74-106) mg/dL Calcium 7.5 L (8.5-10.1) mg/dL - Rhythm Strip Rhythm Strip: Sinus Rhythm Rate: 95 Ectopy: None - EKG Initial EKG Interpretation: Sinus Rhythm, No Acute Injury Pattern, Non-Specific ST Changes - flattened T's diffusely Prior: Unchanged - Medical Decision Making I did not have access to the patient's labs as an outpatient recently. We obtained new ones, her potassium is 2.2 with normal renal function, she is a little anemic but does not require transfusion. Her EKG shows nonspecific T wave abnormalities, but nothing acute. Given her poor oral intake, I suspect she would not do well trying to replace it orally as an outpatient. IV replacement begun in the emergency department. Discussed with hospitalist for admission. ED Disposition - Plan for ED Patient: Disposition: Acute Care [facility] Diagnosis: Hypokalemia, Adult failure to thrive Referrals: Tom Roberto MD [Primary Care Provider] -
[2018-10-20 14:07] LABS: Absolute Lymphocyte Count 1.35 X10^3/ul (0.83-4.51); Absolute Neutrophil Count 3.6 X10^3/uL (2.0-7.7); Eosinophil# 0.21 X10^3/uL; Eosinophils% 3.8 % (0-5); Hematocrit 28.9 % (37-47); Hemoglobin 9.6 g/dl (12.0-15.0); Lymphocyte # 1.35 X10^3/ul (4.0); Lymphocyte % 24.7 % (19-41); Mean Corp Hgb Conc 33.2 g/gl (32-36); Mean Corpuscular Hgb 33.6 pg (27.0-32.0); Mean Platelet Vol. 8.2 fl (6.2-12.0); Monocyte# 0.31 X10^3/uL; Monocyte% 5.7 % (0-10); Neutrophil # 3.58 X10^3/uL (2.7-7.7); Neutrophil % 65.6 % (47-70); Platelet Count 274 K/mm3 (150-450); RBC Distribution Width CV 14.6 % (11.6-14.6); RBC Distribution Width SD 52.4 fl (35.1-43.9); Red Blood Count 2.86 M/mm3 (4.2-5.4); White Blood Count 5.5 K/mm3 (4.4-11.0)
[2018-10-20 14:08] LABS: POSITIVE COUNT NO; POSITIVE DIFFERENTIAL NO; POSITIVE MORPHOLOGY NO
[2018-10-20 14:33] LABS: Anion Gap 7 (5-15); BUN 9 mg/dL (7-18); BUN/Creat Ratio 18.2 RATIO (10-20); Calcium,Total 7.5 mg/dL (8.5-10.1); Chloride 102 mmol/L (98-107); EST Glomerular Filtration Rate 139 mL/min (>60); Est Glom Filt Rate - Afr Amer 168 mL/min (>60); Estimated Creatinine Clearance 105.56 ml/min; Glucose 102 mg/dL (74-106); Potassium 2.2 mmol/L (3.5-5.1); Sodium Level 141 mmol/L (136-145)
[2018-10-20] MEDS: 0.9% Normal Saline 1,000 ML 200 ML IV (14:37)
--- NOTE | 2018-10-20 14:49 | EKG12_ITS ---
Test Reason : ABNL LABS Blood Pressure : / mmHG Vent. Rate : 094 BPM Atrial Rate : 094 BPM P-R Int : 138 ms QRS Dur : 074 ms QT Int : 378 ms P-R-T Axes : 052 -03 053 degrees QTc Int : 472 ms Normal sinus rhythm Nonspecific ST and T wave abnormality Abnormal ECG Confirmed by KEVIN RICE, GARRETT ([id number]), avid editor CLARA DILLARD ([id number]) on 10/22/2018 11:05:13 AM Referred By: ADILENE Confirmed By:GARRETT BROWN MD
[2018-10-20] MEDS: Potassium Chloride 10mEq/100mL 10 MEQ/100 ML IV.SOLN. 100 MEQ IV BOLUS ×5 (15:05→21:27)
--- NOTE | 2018-10-20 15:10 | NURSING ---
PCU ADILSON HYPOKALEMIA, FAILURE TO THRIVE
--- NOTE | 2018-10-20 15:56 | CT_ITS ---
STUDY: CT BRAIN WITHOUT CONTRAST REASON FOR EXAM: Female, 52 years old. Fall, head injury RADIATION DOSAGE (If Supplied By Facility): CTDIvol = ( 44.99 ) mGy, DLP = ( 762.36 ) mGycm TECHNIQUE: Transaxial CT imaging of the brain was performed without administration of intravenous contrast material. Individualized dose optimization techniques were used for this CT. COMPARISON: Multiple previous examinations including MRI and CT scan 09/13/2018. FINDINGS: Normal soft tissue structures. Normal calvarium. Normal size ventricles and extra-axial spaces for the patient's age. Normal white matter tracts of the cerebral hemispheres. Normal basal ganglia and thalami. Normal brainstem. Normal cerebellum. There is no intracranial hemorrhage. There are no findings of an acute ischemic infarction. Normal visualized paranasal sinuses. CT/Brain/Head without Contrast IMPRESSION: Normal unenhanced CT scan of the brain. Electronically Signed: Vic Peña MD at 17:36 EDT , Service support ,
--- NOTE | 2018-10-20 15:56 | MRI_ITS ---
STUDY: MRI LUMBAR SPINE WITHOUT CONTRAST REASON FOR EXAM: Female, 52 years old. Lower extremity weakness and chronic low back pain TECHNIQUE: Standardized fat and water weighted pulse sequences were obtained in the sagittal and axial planes. COMPARISON: 09/13/2018 FINDINGS: T12-L1: Normal endplates. Normal disc height, hydration and morphology. Normal bilateral facet joints. Normal central canal and bilateral lateral recesses. Normal bilateral intervertebral neural foramina. Normal lumbar lordosis. There is no substantial scoliosis. Normal conus medullaris that terminates at the L1 level. Bilateral posterior pedicle fusions at the L4 and L5 levels. L1-2: Bulging annulus and bilateral facet hypertrophy without compressive sequelae. L2-3: Normal disc. Bilateral facet and ligamentum flavum hypertrophy without compressive sequelae. L3-4: Bulging annulus and bilateral facet hypertrophy and facet joint effusions with mild central canal stenosis and moderate bilateral foraminal stenoses. L4-5: Discectomy changes. Bilateral laminectomies. Residual disc osteophyte complex with mild bilateral foraminal stenoses. L5-S1: Bulging annulus and bilateral facet hypertrophy with mild right foraminal stenosis. Normal visualized sacral ala. Normal visualized paraspinous soft tissue structures. MRI/Spine Lumbar (Routine) IMPRESSION: Multilevel degenerative disease and postoperative change as described. Moderate bilateral foraminal stenoses at the L3-4 level. Electronically Signed: oTm Gaines MD at 19:45 EDT Tel , Service support ,
--- NOTE | 2018-10-20 15:56 | PCM.HP.STD ---
History of Present Illness Date of Admission: 10/20/18 Chief Complaint: falls. weakness. The patient is a 52 year old F presents with abnormal lab values. Patient had a potassium that came back at 2. Since the emergency room and potassium was noted to be 2.2. Patient received 10 mEq of IV potassium in the emergency room. Patient states that she has been falling very frequently and when she falls she hits her head. She has been progressively weak over the past 6 months but has just progressively gotten worse to the point where patient is using a walker and is now falling. Patient states that she does not lose consciousness but she does strike her head each time that she falls. Patient has had a history of back surgery about 10 years ago and after that back surgery was noted to be weak in her left lower extremity. Patient has been calm staying with her right leg but over the past several months and if not year the right leg has progressively gotten weaker. [] Past Medical History Past Medical History (Chronic Problems): Chronic Problems Chronic paraplegia (Chronic) Hypothyroidism (Chronic) Hypertension (Chronic) Anxiety and depression (Chronic) Acromegaly (Chronic) History of pituitary surgery (Chronic) Rheumatoid arthritis (Chronic) Leg weakness, bilateral (Chronic) Allergies No Known Allergies Allergy (Verified 10/20/18 13:20) Home Medications: Ambulatory Orders Medication Instructions Recorded Duloxetine HCl 60 mg PO BID 08/17/18 Hydrochlorothiazide 12.5 mg PO DAILY 08/17/18 Levothyroxine Sodium 150 mcg PO DAILY 08/17/18 Metoprolol Tartrate [Lopressor 25 mg PO DAILY 08/17/18 (beta jimena)] Oxycodone HCl/Acetaminophen 1 tab PO Q6H PRN PRN 08/17/18 [Oxycodon-Acetaminophen 7.5-325] Quetiapine Fumarate 25 tab PO BID 08/17/18 Bupropion HCl [Wellbutrin Xl] 150 mg PO DAILY 09/13/18 Hydrocortisone [Cortef] 20 mg PO DAILY 09/13/18 Hydroxyzine Pamoate [Vistaril] 100 mg PO BID PRN PRN 09/13/18 Valacyclovir HCl [Valtrex] 2,000 mg PO BID PRN 09/13/18 Hydrocortisone [Cortef] 10 mg PO QHS 10/20/18 Lorazepam [Ativan] 0.5 mg PO BID PRN PRN 10/20/18 Omeprazole 40 mg PO DAILY 10/20/18 Polyethylene Glycol 3350 17 g PO DAILY PRN 10/20/18 Potassium Chloride [K-Dur] 20 meq PO DAILY 10/20/18 Quetiapine Fumarate 100 mg PO QHS 10/20/18 Sucralfate 1 gm PO ACHS 10/20/18 Tizanidine HCl 4 mg PO QHS 10/20/18 traZODone [Desyrel] 100 mg PO BID 10/20/18 Surgical History: - - Lumbar surgery Lives: Alone Smoking Status: Never smoker Tobacco Use: Non-smoker - *Family History Paternal History Items: No pertinent history - no Family history of neurological disease in parents Review of Systems Constitutional: Reports: Anorexia. Denies: Chills, Fever Eyes: Denies: Blurred vision, Double vision HEENT: Denies: Head Aches, Sinus Congestion, Sinus Drainage Cardiovascular: Denies: Chest Pain, Palpitations Respiratory: Denies: Cough, Shortness of breath at rest, Sputum production Gastrointestinal: Denies: Abdominal Pain, Nausea, Vomiting Genitourinary: Reports: Incontinence. Denies: Dysuria Musculoskeletal: Denies: Joint Pain, Joint Tenderness Skin: Denies: Rash, Wounds Neurological: Reports: Balance problems, Focal weakness, Headaches. Denies: Blurred vision, Double vision, Change in Speech Psychiatric: Reports: Anxiety. Denies: Depression Hematologic/ Lymphatic: Denies: Easy Bruising, Easy Bleeding, Hx of blood clot Comment: A 10 point review of systems were negative except as mentioned in the history of present illness and the other review of systems. VTE Information - Inpt Only VTE Present on Admission: No VTE Pharm Prophylaxis ordered?: Yes Patient Problems: Active and Suspected Problems Hypokalemia (Acute) Adult failure to thrive (Acute) - Physical Exam General: Alert, Cooperative, No apparent distress HEENT: Atraumatic, PERRLA, EOMI, Normocephalic, - - No scleral icterus Oral: Moist Mucosa, No Gingival or Mucosal Lesions/ Ulcerations Neck: No Nodes, Thyroid Normal Size and Texture Lungs: Clear to auscultation, Normal air movement, No rhonchi, No wheeze Cardiovascular: Regular rate, Regular Rhythm, Normal S1, Normal S2, No murmurs Abdomen: Bowel Sounds Present, Soft, Non Tender, Non-Distended, No Hepato-splenomegaly Extremities: No edema, No Calf Tenderness Skin: No rashes, No breakdown Musculoskeletal: No Tenderness to Palpation of Joints or Extremities, Cachexia Neurological: Cranial nerves II-XII grossly intact, - - Muscle strength 5 out of 5 in upper extremity bilaterally. 4 out of 5 in the lower extremities bilaterally but the left leg was slightly stronger than her right. Psych/Mental Status: Normal Affect, Appropriate Vital Signs Temp Pulse Resp BP Pulse Ox 36.5 C L 89 13 126/93 H 100 10/20/18 15:53 10/20/18 15:53 10/20/18 15:53 10/20/18 15:53 10/20/18 15:53 Oxygen Delivery Method Room Air Weight: 52.6 kg Body Mass Index (BMI) 20.5 Laboratory Tests Past 24 Hrs 10/20/18 10/20/18 13:56 13:56 WBC 5.5 RBC 2.86 L Hgb 9.6 L Hct 28.9 L MCV 101.0 H MCH 33.6 H MCHC 33.2 RDW 14.6 RDW Differential 52.4 H Plt Count 274 MPV 8.2 Immature Gran % (Auto) 0.200 Neut % (Auto) 65.6 Lymph % (Auto) 24.7 [place] % (Auto) 5.7 Eos % (Auto) 3.8 Baso % (Auto) 0.0 Absolute Neuts (auto) 3.6 Absolute Lymphs (auto) 1.35 Total Counted Not Reportable Sodium 141 Potassium 2.2 L* Chloride 102 Carbon Dioxide 32.0 Anion Gap 7 BUN 9 Creatinine 0.50 L Estim Creat Clear Calc 105.56 Est GFR (MDRD) Af Amer 168 Est GFR (MDRD) Non-Af 139 BUN/Creatinine Ratio 18.2 Glucose 102 Calcium 7.5 L EKG reviewed and showed normal sinus rhythm with no acute changes. Assessment/Plan All Active Problems Hypokalemia (Acute) Adult failure to thrive (Acute) 1. Hypokalemia I suspect more of a nutritional component but compounded by the fact the patient does take HCTZ though she does take 20 mg of potassium along with that. Possible may be related with her hypopituitarism but will replace and monitor. Currently normotensive. Patient received 10 mEq of potassium in the emergency room. We will give her 40 oral and then 30 additional IV Check magnesium level and replace if low Follow-up lab work Discontinue HCTZ 2. Lower extremity weakness This has been progressive but to the point where patient is now falling several times and striking her head Patient has a known history of back issues in the past. Patient has been advised to proceed with back surgery previously but patient stated that she did not want any surgery because it seemed that her symptoms regards her weakness began after a back surgery Recommend an MRI to further evaluate to see what the processes, if it spinal stenosis, herniated disc or the like. 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 Falls: PT and OT evaluate and treat. Patient may require jail facility upon discharge. Feel the falls may be related with what may be going on her back but also progressive debility Patient has struck her head so we will check head CT 5. DVT prophylaxis with Lovenox Code Visit Inpatient E&M: 75659 Init Hosp L3
--- NOTE | 2018-10-20 16:03 | HP.PCM_ITS ---
History of Present Illness Date of Admission: 10/20/18 Chief Complaint: falls. weakness. The patient is a 52 year old F presents with abnormal lab values. Patient had a potassium that came back at 2. Since the emergency room and potassium was noted to be 2.2. Patient received 10 mEq of IV potassium in the emergency room. Patient states that she has been falling very frequently and when she falls she hits her head. She has been progressively weak over the past 6 months but has just progressively gotten worse to the point where patient is using a walker and is now falling. Patient states that she does not lose consciousness but she does strike her head each time that she falls. Patient has had a history of back surgery about 10 years ago and after that back surgery was noted to be weak in her left lower extremity. Patient has been calm staying with her right leg but over the past several months and if not year the right leg has progressively gotten weaker. [] Past Medical History Past Medical History (Chronic Problems): Chronic Problems Chronic paraplegia (Chronic) Hypothyroidism (Chronic) Hypertension (Chronic) Anxiety and depression (Chronic) Acromegaly (Chronic) History of pituitary surgery (Chronic) Rheumatoid arthritis (Chronic) Leg weakness, bilateral (Chronic) Allergies No Known Allergies Allergy (Verified 10/20/18 13:20) Home Medications: Ambulatory Orders Medication Instructions Recorded Duloxetine HCl 60 mg PO BID 08/17/18 Hydrochlorothiazide 12.5 mg PO DAILY 08/17/18 Levothyroxine Sodium 150 mcg PO DAILY 08/17/18 Metoprolol Tartrate [Lopressor 25 mg PO DAILY 08/17/18 (beta jimena)] Oxycodone HCl/Acetaminophen 1 tab PO Q6H PRN PRN 08/17/18 [Oxycodon-Acetaminophen 7.5-325] Quetiapine Fumarate 25 tab PO BID 08/17/18 Bupropion HCl [Wellbutrin Xl] 150 mg PO DAILY 09/13/18 Hydrocortisone [Cortef] 20 mg PO DAILY 09/13/18 Hydroxyzine Pamoate [Vistaril] 100 mg PO BID PRN PRN 09/13/18 Valacyclovir HCl [Valtrex] 2,000 mg PO BID PRN 09/13/18 Hydrocortisone [Cortef] 10 mg PO QHS 10/20/18 Lorazepam [Ativan] 0.5 mg PO BID PRN PRN 10/20/18 Omeprazole 40 mg PO DAILY 10/20/18 Polyethylene Glycol 3350 17 g PO DAILY PRN 10/20/18 Potassium Chloride [K-Dur] 20 meq PO DAILY 10/20/18 Quetiapine Fumarate 100 mg PO QHS 10/20/18 Sucralfate 1 gm PO ACHS 10/20/18 Tizanidine HCl 4 mg PO QHS 10/20/18 traZODone [Desyrel] 100 mg PO BID 10/20/18 Surgical History: - - Lumbar surgery Lives: Alone Smoking Status: Never smoker Tobacco Use: Non-smoker - *Family History Paternal History Items: No pertinent history - no Family history of neurological disease in parents Review of Systems Constitutional: Reports: Anorexia. Denies: Chills, Fever Eyes: Denies: Blurred vision, Double vision HEENT: Denies: Head Aches, Sinus Congestion, Sinus Drainage Cardiovascular: Denies: Chest Pain, Palpitations Respiratory: Denies: Cough, Shortness of breath at rest, Sputum production Gastrointestinal: Denies: Abdominal Pain, Nausea, Vomiting Genitourinary: Reports: Incontinence. Denies: Dysuria Musculoskeletal: Denies: Joint Pain, Joint Tenderness Skin: Denies: Rash, Wounds Neurological: Reports: Balance problems, Focal weakness, Headaches. Denies: Blurred vision, Double vision, Change in Speech Psychiatric: Reports: Anxiety. Denies: Depression Hematologic/ Lymphatic: Denies: Easy Bruising, Easy Bleeding, Hx of blood clot Comment: A 10 point review of systems were negative except as mentioned in the history of present illness and the other review of systems. VTE Information - Inpt Only VTE Present on Admission: No VTE Pharm Prophylaxis ordered?: Yes Patient Problems: Active and Suspected Problems Hypokalemia (Acute) Adult failure to thrive (Acute) - Physical Exam General: Alert, Cooperative, No apparent distress HEENT: Atraumatic, PERRLA, EOMI, Normocephalic, - - No scleral icterus Oral: Moist Mucosa, No Gingival or Mucosal Lesions/ Ulcerations Neck: No Nodes, Thyroid Normal Size and Texture Lungs: Clear to auscultation, Normal air movement, No rhonchi, No wheeze Cardiovascular: Regular rate, Regular Rhythm, Normal S1, Normal S2, No murmurs Abdomen: Bowel Sounds Present, Soft, Non Tender, Non-Distended, No Hepato-splenomegaly Extremities: No edema, No Calf Tenderness Skin: No rashes, No breakdown Musculoskeletal: No Tenderness to Palpation of Joints or Extremities, Cachexia Neurological: Cranial nerves II-XII grossly intact, - - Muscle strength 5 out of 5 in upper extremity bilaterally. 4 out of 5 in the lower extremities bilaterally but the left leg was slightly stronger than her right. Psych/Mental Status: Normal Affect, Appropriate Vital Signs Temp Pulse Resp BP Pulse Ox 36.5 C L 89 13 126/93 H 100 10/20/18 15:53 10/20/18 15:53 10/20/18 15:53 10/20/18 15:53 10/20/18 15:53 Oxygen Delivery Method Room Air Weight: 52.6 kg Body Mass Index (BMI) 20.5 Laboratory Tests Past 24 Hrs 10/20/18 10/20/18 13:56 13:56 WBC 5.5 RBC 2.86 L Hgb 9.6 L Hct 28.9 L MCV 101.0 H MCH 33.6 H MCHC 33.2 RDW 14.6 RDW Differential 52.4 H Plt Count 274 MPV 8.2 Immature Gran % (Auto) 0.200 Neut % (Auto) 65.6 Lymph % (Auto) 24.7 [place] % (Auto) 5.7 Eos % (Auto) 3.8 Baso % (Auto) 0.0 Absolute Neuts (auto) 3.6 Absolute Lymphs (auto) 1.35 Total Counted Not Reportable Sodium 141 Potassium 2.2 L* Chloride 102 Carbon Dioxide 32.0 Anion Gap 7 BUN 9 Creatinine 0.50 L Estim Creat Clear Calc 105.56 Est GFR (MDRD) Af Amer 168 Est GFR (MDRD) Non-Af 139 BUN/Creatinine Ratio 18.2 Glucose 102 Calcium 7.5 L EKG reviewed and showed normal sinus rhythm with no acute changes. Assessment/Plan All Active Problems Hypokalemia (Acute) Adult failure to thrive (Acute) 1. Hypokalemia * I suspect more of a nutritional component but compounded by the fact the patient does take HCTZ though she does take 20 mg of potassium along with that. Possible may be related with her hypopituitarism but will replace and monitor. Currently normotensive. * Patient received 10 mEq of potassium in the emergency room. We will give her 40 oral and then 30 additional IV * Check magnesium level and replace if low * Follow-up lab work * Discontinue HCTZ 2. Lower extremity weakness * This has been progressive but to the point where patient is now falling several times and striking her head * Patient has a known history of back issues in the past. Patient has been advised to proceed with back surgery previously but patient stated that she did not want any surgery because it seemed that her symptoms regards her weakness began after a back surgery * Recommend an MRI to further evaluate to see what the processes, if it spinal stenosis, herniated disc or the like. 3. Hypopituitaryism * Continue with hydrocortisone and levothyroxine * Follow-up records from [facility] 4. Falls: * PT and OT evaluate and treat. Patient may require nursing home facility upon discharge. Feel the falls may be related with what may be going on her back but also progressive debility * Patient has struck her head so we will check head CT 5. DVT prophylaxis with Lovenox Code Visit Inpatient E&M: 10128 Init Hosp L3
[2018-10-20] MEDS: oxyCODONE 5 MG Tablet PO (17:22)
[2018-10-20] MEDS: Sucralfate 1 GM Tablet PO ×2 (17:23→21:28)
[2018-10-20] MEDS: LORazepam 0.5 MG Tablet PO (17:31)
[2018-10-20] MEDS: tiZANidine HCl 2 MG Tablet 4 MG PO (18:40)
[2018-10-20] MEDS: QUEtiapine 25 MG Tablet PO (21:27)
[2018-10-20] MEDS: traZODone 100 MG Tablet PO (21:28)
[2018-10-20] MEDS: DULoxetine Hcl 60 MG Capsule PO (21:28)
[2018-10-20] MEDS: Hydrocortisone 10 MG Tablet PO (21:28)
[2018-10-21] VITALS (10 sets, daily range): BP systolic 93–136; BP diastolic 70–94; PULSE 67–110; RESP 16–18; TEMP 36.8–37.7; O2SAT 96–100
[2018-10-21] MEDS: oxyCODONE 5 MG Tablet PO ×4 (03:56→18:12)
[2018-10-21] MEDS: hydrOXYzine PAM 25 MG Capsule 100 MG PO (03:56)
[2018-10-21] MEDS: Levothyroxine 150 MCG Tablet PO (06:22)
[2018-10-21] MEDS: Sucralfate 1 GM Tablet PO ×4 (06:22→21:08)
[2018-10-21 06:37] LABS: Anion Gap 6 (5-15); BUN 9 mg/dL (7-18); BUN/Creat Ratio 33.1 RATIO (10-20); Calcium,Total 7.1 mg/dL (8.5-10.1); Chloride 106 mmol/L (98-107); Creatinine, Serum 0.27 mg/dL (0.55-1.02); EST Glomerular Filtration Rate 277 mL/min (>60); Est Glom Filt Rate - Afr Amer 335 mL/min (>60); Estimated Creatinine Clearance 192.77 ml/min; Glucose 74 mg/dL (74-106); Magnesium 1.9 mg/dL (1.6-2.6); Potassium 3.4 mmol/L (3.5-5.1); Sodium Level 143 mmol/L (136-145)
[2018-10-21] MEDS: Hydrocortisone 10 MG Tablet 20 MG PO (08:23)
[2018-10-21] MEDS: Calcium Carbonate 500 MG Tablet PO ×2 (08:24→16:05)
[2018-10-21] MEDS: traZODone 100 MG Tablet PO ×2 (10:03→21:08)
[2018-10-21] MEDS: tiZANidine HCl 2 MG Tablet 4 MG PO (10:03)
[2018-10-21] MEDS: QUEtiapine 25 MG Tablet PO ×2 (10:03→21:08)
[2018-10-21] MEDS: Enoxaparin 40 MG/0.4 ML Syringe SC (10:04)
[2018-10-21] MEDS: Pantoprazole Sodium 40 MG Tablet PO (10:04)
[2018-10-21] MEDS: DULoxetine Hcl 60 MG Capsule PO ×2 (10:04→21:09)
[2018-10-21] MEDS: buPROPion (XL) 150 MG TABLET.XL PO (10:05)
[2018-10-21] MEDS: LORazepam 0.5 MG Tablet PO (11:12)
--- NOTE | 2018-10-21 11:30 | CASEMGMT ---
LILIAN MORALES assessment: Face to Face with patient for initial transition planning/care coordination assessment. LILIAN MORALES introduced self and role at [facility], pt voices understanding and consents to assessment at this time. Pt is sitting up in bed in no distress at this time. Care providers, pharmacy, and demographics verified/updated at this time. PCP: Pardeep Specialists: MARIALUISA Butcher; fork repairer in [place] Preferred Pharmacy: [facility] Insurance: [facility] [employer] Prescription Benefit: [employer] Living Will/HPOA: Pt states does not have LW/HPOA but is interested in completing info but would like to speak with her sister first. Pt aware to ask for SW if/when she decides to complete AD. E.Jovi SW aware, voices understanding. LNOK: Arnie Olivares, son; Tom Olivares, son Living Arrangements: Pt states lives with friend on the main level of 2 story home and states no concerns at home at this time. Pt states is mostly independent with ADL's but her friend does help her bathe. Transportation: Pt states drives self and states no transportation concerns at this time. 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 Pt states no hx of HHC and SNF at this time. Pt states no concerns with going home at time of discharge. Pt states is disabled. Pt states does not smoke or drink ETOH. Pt states no further concerns/needs at this time. CM to follow PT/OT and for any further discharge planning/needs. Advised pt to ask for CM if any further questions/concerns/needs arise, voices understanding. Pt Goal: Home [place] LILIAN MORALES
--- NOTE | 2018-10-21 13:14 | PCM.PN.HOSP ---
Patient Problems: Active and Suspected Problems Hypokalemia (Acute) Adult failure to thrive (Acute) Subjective: Patient seen and examined. She was admitted on account of abnormal labs. Potassium was 2 on admission and repeat in the ED was noted to be 2.2. Patient stated that she had been falling very frequently and not hit her head several times and had also become progressively weak. She lives with a friend who helps her at home. She admits to having very poor appetite at home. She complained of nausea and retching this morning. She denies any palpitations or dizziness, diarrhea abdominal pain. Review of systems otherwise negative. Labs and vitals reviewed. Potassium noted to be 3.4 today. Vitals/I&O's: Vital Signs Temp Pulse Resp BP Pulse Ox 99.8 F H 100 16 122/93 H 100 10/21/18 08:27 10/21/18 10:39 10/21/18 08:27 10/21/18 08:27 10/21/18 08:27 Oxygen Delivery Method Room Air Weight: 115 lb 15.41 oz Body Mass Index (BMI) 20.5 Intake and Output for Last 24 Hours 10/19/18 10/20/18 10/21/18 23:59 23:59 23:59 Intake Total 1188 / 1188 1245 / 1245 Output Total 550 / 550 600 / 600 Balance 638 / 638 645 / 645 General: Alert, Oriented x3, Cooperative, - - mild distress- was retching during HEENT: Atraumatic, PERRLA, EOMI, Normocephalic Oral: Dry Mucosa Neck: Supple, No JVD, Negative Carotid Bruits Lungs: Clear to auscultation, Normal air movement, No rhonchi, No wheeze, No rales Cardiovascular: Regular rate, Regular Rhythm, Normal S1, Normal S2, No murmurs Abdomen: Bowel Sounds Present, Soft, Non Tender, Non-Distended, No Hepato-splenomegaly Extremities: No clubbing, No cyanosis, No edema, Capillary Refill Less than 3 Seconds Skin: No rashes, No breakdown Musculoskeletal: No Tenderness to Palpation of Joints or Extremities Lymphatic: No Cervical, Supraclavicular, or Inguinal Adenopathy Neurological: Cranial nerves II-XII grossly intact, Neuro grossly intact, Motor Exam 5/5 strength throughout Psych/Mental Status: Normal Affect, Appropriate, Alert and oriented to time, place, person, mood and affect Laboratory Results 10/20/18 13:56: WBC 5.5, RBC 2.86 L, Hgb 9.6 L, Hct 28.9 L, MCV 101.0 H, MCH 33.6 H, MCHC 33.2, RDW 14.6, RDW Differential 52.4 H, Plt Count 274, MPV 8.2, Immature Gran % (Auto) 0.200, Neut % (Auto) 65.6, Lymph % (Auto) 24.7, [place] % (Auto) 5.7, Eos % (Auto) 3.8, Baso % (Auto) 0.0, Absolute Neuts (auto) 3.6, Absolute Lymphs (auto) 1.35, Total Counted Not Reportable 10/20/18 13:56: Sodium 141, Potassium 2.2 L*, Chloride 102, Carbon Dioxide 32.0, Anion Gap 7, BUN 9, Creatinine 0.50 L, Estim Creat Clear Calc 105.56, Est GFR (MDRD) Af Amer 168, Est GFR (MDRD) Non-Af 139, BUN/Creatinine Ratio 18.2, Glucose 102, Calcium 7.5 L 10/20/18 13:56: Magnesium 2.0 10/21/18 05:30: Sodium 143, Potassium 3.4 L, Chloride 106, Carbon Dioxide 31.0, Anion Gap 6, BUN 9, Creatinine 0.27 L, Estim Creat Clear Calc 192.77, Est GFR (MDRD) Af Amer 335, Est GFR (MDRD) Non-Af 277, BUN/Creatinine Ratio 33.1 H, Glucose 74, Calcium 7.1 L, Magnesium 1.9 Current Medications Bupropion HCl (Wellbutrin Xl) 150 mg PO DAILY [facility] Last Admin: 10/21/18 10:05 Dose: 150 mg [facility]cium [facility] Admin: 10/21/18 08:24 Dose: 500 mg Dextrose (D50w Syringe) 0 gm IV X1 PRN; Protocol PRN Reason: Hypoglycemia Duloxetine HCl (Cymbalta) 60 mg PO BID [facility] Last Admin: 10/21/18 10:04 Dose: 60 mg Enoxaparin Sodium (Lovenox) 40 mg SC DAILY@1000 [facility] Last Admin: 10/21/18 10:04 Dose: 40 mg Glucagon () 1 mg IM .X1 PRN PRN Reason: Hypoglycemia Hydrocortisone (Cortef) 10 mg PO QHS [facility] Last Admin: 10/20/18 21:28 Dose: 10 mg Hydrocortis[facility] (Cortef) [facility] Admin: 10/21/18 08:23 Dose: 20 mg Hydroxyzine Pamoate (Vistaril Pamoate Capsule) 100 mg PO BID PRN PRN PRN Reason: ANXIETY Last Admin: 10/21/18 03:56 Dose: 100 mg Levothyroxine Sodium (Synthroid) 150 mcg PO DAILY@0600 [facility] Last Admin: 10/21/18 06:22 Dose: 150 mcg Lorazepam (Ativan) 0.5 mg PO DAILY PRN PRN Reason: ANXIETY Last Admin: 10/21/18 11:12 Dose: 0.5 mg Magnesium Hydroxide (Milk Of Magnesia) 30 ml PO DAILY PRN PRN PRN Reason: Constipation Metoprolol Tartrate (Lopressor (Beta [place])) 25 mg PO DAILY [facility] Last Admin: 10/21/18 10:34 Dose: Not Given Nutritional Formula (Lactose Free) (Ensure Enlive) 120 ml PO 4X/DAY [facility] Last Admin: 10/21/18 10:04 Dose: 120 ml Ondansetron HCl (Zofran) 4 mg IV Q8H PRN PRN PRN Reason: NAUSEA Oxycodone HCl (Oxyir) 5 mg PO Q6H PRN PRN PRN Reason: SEVERE PAIN (6-10/10) Last Admin: 10/21/18 10:03 Dose: 5 mg Pantoprazole Sodium (Protonix) 40 mg PO DAILY [facility] Last Admin: 10/21/18 10:04 Dose: 40 mg Polyethylene Glycol (Miralax) 17 gm PO DAILY PRN PRN PRN Reason: CONSTIPATION Potassium Chloride (K-Dur) [facility] Admin: 10/21/18 08:23 Dose: 20 meq Quetiapine Fumarate (Seroquel) 25 mg PO BID [facility] Last Admin: 10/21/18 10:03 Dose: 25 mg Sodium Chloride () 5 - 15 ml IV UD PRN PRN Reason: SALINE FLUSH Sucralfate (Carafate) 1 gm PO 1HR_ACHS [facility] Last Admin: 10/21/18 10:05 Dose: 1 gm Tizanidine HCl (Zanaflex) 4 mg PO DAILY PRN PRN PRN Reason: muscle relaxer Last Admin: 10/21/18 10:03 Dose: 4 mg Trazodone HCl (Desyrel) 100 mg PO BID [facility] Last Admin: 10/21/18 10:03 Dose: 100 mg Medical Necessity - Tobacco Use Smoking Status: Never smoker Tobacco Use: Non-smoker Assessment/Plan All Active Problems Hypokalemia (Acute) Adult failure to thrive (Acute) 1. Hypokalemia likely due to malnutrition and nausea and vomiting K today is 3.4 still having nausea and retching. Mg was 1.9 today. Will monitor HCTZ discontinued on zofran for nausea. 2. Debility due to malnutrition and mechanical falls Patient says she has been falling at home and hit her head whenever she falls. Lumbar spine MRI showed multilevel degenerative disease and postoperative changes with moderate bilateral foraminal stenosis at the L3-L4 level. PT/OT consulted. 3. 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 To follow up with endocrinologuist at [facility] 4. Mechanical falls: as under 2. CT head was negative. PT/OT on board. DVT prophylaxis; lovenox DisPosition: May need placement Code Visit Inpatient E&M: 34119 Subs Hosp L2
--- NOTE | 2018-10-21 13:27 | PN_ITS ---
Patient Problems: Active and Suspected Problems Hypokalemia (Acute) Adult failure to thrive (Acute) Subjective: Patient seen and examined. She was admitted on account of abnormal labs. Potassium was 2 on admission and repeat in the ED was noted to be 2.2. Patient stated that she had been falling very frequently and not hit her head several times and had also become progressively weak. She lives with a friend who helps her at home. She admits to having very poor appetite at home. She complained of nausea and retching this morning. She denies any palpitations or dizziness, diarrhea abdominal pain. Review of systems otherwise negative. Labs and vitals reviewed. Potassium noted to be 3.4 today. Vitals/I&O's: Vital Signs Temp Pulse Resp BP Pulse Ox 99.8 F H 100 16 122/93 H 100 10/21/18 08:27 10/21/18 10:39 10/21/18 08:27 10/21/18 08:27 10/21/18 08:27 Oxygen Delivery Method Room Air Weight: 115 lb 15.41 oz Body Mass Index (BMI) 20.5 Intake and Output for Last 24 Hours 10/19/18 10/20/18 10/21/18 23:59 23:59 23:59 Intake Total 1188 / 1188 1245 / 1245 Output Total 550 / 550 600 / 600 Balance 638 / 638 645 / 645 General: Alert, Oriented x3, Cooperative, - - mild distress- was retching during HEENT: Atraumatic, PERRLA, EOMI, Normocephalic Oral: Dry Mucosa Neck: Supple, No JVD, Negative Carotid Bruits Lungs: Clear to auscultation, Normal air movement, No rhonchi, No wheeze, No rales Cardiovascular: Regular rate, Regular Rhythm, Normal S1, Normal S2, No murmurs Abdomen: Bowel Sounds Present, Soft, Non Tender, Non-Distended, No Hepato- splenomegaly Extremities: No clubbing, No cyanosis, No edema, Capillary Refill Less than 3 Seconds Skin: No rashes, No breakdown Musculoskeletal: No Tenderness to Palpation of Joints or Extremities Lymphatic: No Cervical, Supraclavicular, or Inguinal Adenopathy Neurological: Cranial nerves II-XII grossly intact, Neuro grossly intact, Motor Exam 5/5 strength throughout Psych/Mental Status: Normal Affect, Appropriate, Alert and oriented to time, place, person, mood and affect Laboratory Results 10/20/18 13:56: WBC 5.5, RBC 2.86 L, Hgb 9.6 L, Hct 28.9 L, MCV 101.0 H, MCH 33.6 H, MCHC 33.2, RDW 14.6, RDW Differential 52.4 H, Plt Count 274, MPV 8.2, Immature Gran % (Auto) 0.200, Neut % (Auto) 65.6, Lymph % (Auto) 24.7, Dauphin % (Auto) 5.7, Eos % (Auto) 3.8, Baso % (Auto) 0.0, Absolute Neuts (auto) 3.6, Absolute Lymphs (auto) 1.35, Total Counted Not Reportable 10/20/18 13:56: Sodium 141, Potassium 2.2 L*, Chloride 102, Carbon Dioxide 32.0, Anion Gap 7, BUN 9, Creatinine 0.50 L, Estim Creat Clear Calc 105.56, Est GFR (MDRD) Af Amer 168, Est GFR (MDRD) Non-Af 139, BUN/Creatinine Ratio 18.2, Glucose 102, Calcium 7.5 L 10/20/18 13:56: Magnesium 2.0 10/21/18 05:30: Sodium 143, Potassium 3.4 L, Chloride 106, Carbon Dioxide 31.0, Anion Gap 6, BUN 9, Creatinine 0.27 L, Estim Creat Clear Calc 192.77, Est GFR (MDRD) Af Amer 335, Est GFR (MDRD) Non-Af 277, BUN/Creatinine Ratio 33.1 H, Glucose 74, Calcium 7.1 L, Magnesium 1.9 Current Medications Bupropion HCl (Wellbutrin Xl) 150 mg PO DAILY [facility] Last Admin: 10/21/18 10:05 Dose: 150 [facility] Admin: 10/21/18 08:24 Dose: 500 mg Dextrose (D50w Syringe) 0 gm IV X1 PRN; Protocol PRN Reason: Hypoglycemia Duloxetine HCl (Cymbalta) 60 mg PO BID [facility] Last Admin: 10/21/18 10:04 Dose: 60 mg Enoxaparin Sodium (Lovenox) 40 mg SC DAILY@1000 [facility] Last Admin: 10/21/18 10:04 Dose: 40 mg Glucagon () 1 mg IM .X1 PRN PRN Reason: Hypoglycemia Hydrocortisone (Cortef) 10 mg PO QHS [facility] Last Admin: 10/20/18 21:28 Dose: 10 mg [facility] ([facility]) [facility] Admin: 10/21/18 08:23 Dose: 20 mg Hydroxyzine Pamoate (Vistaril Pamoate Capsule) 100 mg PO BID PRN PRN PRN Reason: ANXIETY Last Admin: 10/21/18 03:56 Dose: 100 mg Levothyroxine Sodium (Synthroid) 150 mcg PO DAILY@0600 [facility] Last Admin: 10/21/18 06:22 Dose: 150 mcg Lorazepam (Ativan) 0.5 mg PO DAILY PRN PRN Reason: ANXIETY Last Admin: 10/21/18 11:12 Dose: 0.5 mg Magnesium Hydroxide (Milk Of Magnesia) 30 ml PO DAILY PRN PRN PRN Reason: Constipation Metoprolol Tartrate (Lopressor (Beta Jordan)) 25 mg PO DAILY [facility] Last Admin: 10/21/18 10:34 Dose: Not Given Nutritional Formula (Lactose Free) (Ensure Enlive) 120 ml PO 4X/DAY [facility] Last Admin: 10/21/18 10:04 Dose: 120 ml Ondansetron HCl (Zofran) 4 mg IV Q8H PRN PRN PRN Reason: NAUSEA Oxycodone HCl (Oxyir) 5 mg PO Q6H PRN PRN PRN Reason: SEVERE PAIN (6-10/10) Last Admin: 10/21/18 10:03 Dose: 5 mg Pantoprazole Sodium (Protonix) 40 mg PO DAILY [facility] Last Admin: 10/21/18 10:04 Dose: 40 mg Polyethylene Glycol (Miralax) 17 gm PO DAILY PRN PRN PRN Reason: CONSTIPATION Potassium Chloride (K-Dur) [facility] Admin: 10/21/18 08:23 Dose: 20 meq Quetiapine Fumarate (Seroquel) 25 mg PO BID [facility] Last Admin: 10/21/18 10:03 Dose: 25 mg Sodium Chloride () 5 - 15 ml IV UD PRN PRN Reason: SALINE FLUSH Sucralfate (Carafate) 1 gm PO 1HR_ACHS [facility] Last Admin: 10/21/18 10:05 Dose: 1 gm Tizanidine HCl (Zanaflex) 4 mg PO DAILY PRN PRN PRN Reason: muscle relaxer Last Admin: 10/21/18 10:03 Dose: 4 mg Trazodone HCl (Desyrel) 100 mg PO BID [facility] Last Admin: 10/21/18 10:03 Dose: 100 mg Medical Necessity - Tobacco Use Smoking Status: Never smoker Tobacco Use: Non-smoker Assessment/Plan All Active Problems Hypokalemia (Acute) Adult failure to thrive (Acute) 1. Hypokalemia likely due to malnutrition and nausea and vomiting * K today is 3.4 * still having nausea and retching. * Mg was 1.9 today. Will monitor * HCTZ discontinued * on zofran for nausea. 2. Debility due to malnutrition and mechanical falls * Patient says she has been falling at home and hit her head whenever she falls. * Lumbar spine MRI showed multilevel degenerative disease and postoperative changes with moderate bilateral foraminal stenosis at the L3-L4 level. * PT/OT consulted. * 3. 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 To follow up with endocrinologuist at [facility] 4. Mechanical falls: as under 2. CT head was negative. PT/OT on board. DVT prophylaxis; lovenox DisPosition: May need placement Code Visit Inpatient E&M: 60536 Subs Hosp L2
--- NOTE | 2018-10-21 16:37 | NURSING ---
Pt w/ approx 100 cc emesis. Reported to BOTTLE BLOWER Sherry I threw up my oxy. No pill identified in emesis bag per this RN and BOTTLE BLOWER Sherry. Contents of emesis basis dumped in toilet and flushed. Advised pt that additional pain medication would not be administered while nauseous. She verbalized understanding. Will continue to monitor.
[2018-10-21] MEDS: Hydrocortisone 10 MG Tablet PO (21:08)
[2018-10-22 02:53] VITALS: BP 123/86; PULSE 84; RESP 16; TEMP 36.8; O2SAT 95
[2018-10-22 03:01] VITALS: PULSE 79
[2018-10-22] MEDS: Sucralfate 1 GM Tablet PO ×2 (06:33→11:29)
[2018-10-22] MEDS: Levothyroxine 150 MCG Tablet PO (06:33)
[2018-10-22] MEDS: oxyCODONE 5 MG Tablet PO ×2 (06:35→11:31)
[2018-10-22 07:07] VITALS: PULSE 85
[2018-10-22 08:03] LABS: Absolute Lymphocyte Count 1.48 X10^3/ul (0.83-4.51); Absolute Neutrophil Count 3.2 X10^3/uL (2.0-7.7); Eosinophil# 0.43 X10^3/uL; Hematocrit 25.4 % (37-47); Hemoglobin 8.4 g/dl (12.0-15.0); Lymphocyte # 1.48 X10^3/ul (4.0); Lymphocyte % 27.4 % (19-41); Mean Corp Hgb Conc 33.1 g/gl (32-36); Mean Corpuscular Hgb 34.6 pg (27.0-32.0); Mean Corpuscular Volume 104.5 fL (81-99); Monocyte# 0.29 X10^3/uL; Monocyte% 5.4 % (0-10); Neutrophil # 3.18 X10^3/uL (2.7-7.7); Neutrophil % 58.8 % (47-70); Platelet Count 191 K/mm3 (150-450); RBC Distribution Width CV 15.7 % (11.6-14.6); RBC Distribution Width SD 60.4 fl (35.1-43.9); Red Blood Count 2.43 M/mm3 (4.2-5.4); White Blood Count 5.4 K/mm3 (4.4-11.0)
[2018-10-22 08:06] LABS: POSITIVE COUNT NO; POSITIVE DIFFERENTIAL NO; POSITIVE MORPHOLOGY NO
[2018-10-22 08:09] LABS: Anion Gap 4 (5-15); BUN 13 mg/dL (7-18); BUN/Creat Ratio 45.3 RATIO (10-20); Calcium,Total 7.4 mg/dL (8.5-10.1); Chloride 107 mmol/L (98-107); Creatinine, Serum 0.29 mg/dL (0.55-1.02); EST Glomerular Filtration Rate 261 mL/min (>60); Est Glom Filt Rate - Afr Amer 315 mL/min (>60); Estimated Creatinine Clearance 179.48 ml/min; Glucose 78 mg/dL (74-106); Potassium 4.4 mmol/L (3.5-5.1); Sodium Level 142 mmol/L (136-145)
[2018-10-22] MEDS: Hydrocortisone 10 MG Tablet 20 MG PO (08:40)
[2018-10-22 08:41] VITALS: PULSE 100
[2018-10-22] MEDS: Calcium Carbonate 500 MG Tablet PO (08:41)
[2018-10-22] MEDS: traZODone 100 MG Tablet PO (08:41)
[2018-10-22] MEDS: DULoxetine Hcl 60 MG Capsule PO (08:41)
[2018-10-22] MEDS: Metoprolol Tartrate 25 MG Tablet PO (08:41)
[2018-10-22] MEDS: QUEtiapine 25 MG Tablet PO (08:42)
[2018-10-22] MEDS: Pantoprazole Sodium 40 MG Tablet PO (08:42)
[2018-10-22] MEDS: Enoxaparin 40 MG/0.4 ML Syringe SC (08:42)
[2018-10-22] MEDS: buPROPion (XL) 150 MG TABLET.XL PO (08:42)
[2018-10-22] MEDS: tiZANidine HCl 2 MG Tablet 4 MG PO (08:47)
[2018-10-22 08:50] VITALS: BP 124/89; PULSE 86; RESP 18; TEMP 36.9; O2SAT 99
[2018-10-22 09:47] LABS: Ferritin 36 ng/mL (8-252); Iron 36 ug/dL (50-170); Iron Binding Capacity,Total 121 ug/dL (250-450); PERCENT IRON SATURATION 29.8 % (15.0-55.0)
[2018-10-22 11:16] VITALS: PULSE 67
--- NOTE | 2018-10-22 11:18 | DCINST_ITS ---
- Discharge Diagnoses Current Active Problems: Current Active and Chronic Problems Hypokalemia (Acute) Adult failure to thrive (Acute) You will use the following diet at home:: Other - high potassium diet Your food should be the consistency of: Regular Your liquids should be the consistency of: Regular/Thin Discharge Activity: Return to Normal Activity Weight Bearing Status: Weight bearing as tolerated Call your doctor if you observe: Numbness or Tingling, Shortness of breath, Dizziness Instructions: Discharge Instructions for Hypokalemia, Discharge Instructions: Eating a High Potassium Diet Additional Instructions: home PT for LE weakness. To have follow up BMP with PCP in 2-3 days to check potassium Allergies/Adverse Reactions: Allergies No Known Allergies Allergy (Verified 10/20/18 13:20) Medications to take at Discharge Duloxetine HCl 60 mg PO BID 08/17/18 Levothyroxine Sodium 125 mcg PO DAILY 08/17/18 Oxycodone HCl/Acetaminophen [Oxycodon-Acetaminophen 7.5-325] 1 tab PO Q6H PRN PRN 08/17/18 Quetiapine Fumarate 25 mg PO BID 08/17/18 Bupropion HCl [Wellbutrin Xl] 150 mg PO DAILY 09/13/18 Hydrocortisone [Cortef] 20 mg PO DAILY 09/13/18 Hydroxyzine Pamoate [Vistaril] 100 mg PO BID PRN PRN 09/13/18 Valacyclovir HCl [Valtrex] 2,000 mg PO BID PRN 09/13/18 Hydrocortisone [Cortef] 10 mg PO QHS 10/20/18 Lorazepam [Ativan] 0.5 mg PO BID PRN PRN 10/20/18 Polyethylene Glycol 3350 17 g PO DAILY PRN 10/20/18 Potassium Chloride [K-Dur] 20 meq PO DAILY 10/20/18 Sucralfate 1 gm PO ACHS 10/20/18 Tizanidine HCl 4 mg PO QHS 10/20/18 traZODone [Desyrel] 100 mg PO QHS PRN PRN 10/20/18 Metoprolol(XL)Succ [Toprol Xl (Beta Jordan)] 25 mg PO DAILY #30 tablet 10/22/18 Omeprazole 40 mg PO DAILY #30 capsule. 10/22/18 The following prescriptions were given: Metoprolol(XL)Succ [Toprol Xl (Beta Jordan)] 25 mg PO DAILY #30 tablet Omeprazole 40 mg PO DAILY #30 capsule. Primary Care Physician: Tom Roberto MD [Primary Care Provider] - Please follow up with your Primary Care Physician in: one week Test Results: Test results from this visit will be discussed in further detail at your follow- up appointment, if applicable. Proposed Discharge Date: 10/22/18
[2018-10-22] MEDS: LORazepam 0.5 MG Tablet PO (11:32)
[2018-10-22 11:40] LABS: Bedside Glucose 129 mg/dL (70-110)
--- NOTE | 2018-10-22 13:26 | CHAPLAIN ---
Type of Pastoral Visit _x__ Initial Visit ___ Follow-up Visit ___ On-call Visit ___ General Patient Visit ___ Spiritual Assessment ___ Family Conference ___ Bereavement ___ Rapid Response ___ Code Blue ___ Other (describe below) Pastoral Care Referral From _x__ Patient ___ Family ___ Nurse ___ Physician ___ Coin Wrapping Machine Operator ___ Paper Goods Machine Set Up Operator ___ Other (describe below) Sacrament/Intervention _x__ Active listening ___ Anointing ___ Oriental Orthodox ___ Bereavement ___ Communion _x__ Nessa exploration ___ ___ Life review _x__ Prayer ___ Reconciliation ___ Sacrament of Sick ___ Supportive presence ___ Wedding ___ Other (describe below) Pastoral Comments
--- NOTE | 2018-10-22 14:51 | PCM.DC.SUM ---
Discharge Date and Diagnosis - Problem List Patient Problems: Active and Suspected Problems Hypokalemia (Acute) Adult failure to thrive (Acute) Date of Admission: 10/20/18 Date of Discharge: 10/22/18 - Primary Discharge Diagnosis Active and Suspected Problems Hypokalemia (Acute) Adult failure to thrive (Acute) debility due to mechanical falls. - Secondary Discharge Diagnosis Chronic Problems Chronic paraplegia (Chronic) Hypothyroidism (Chronic) Hypertension (Chronic) Anxiety and depression (Chronic) Acromegaly (Chronic) History of pituitary surgery (Chronic) Rheumatoid arthritis (Chronic) Leg weakness, bilateral (Chronic) Hospital Course and Treatment Imaging Results: Diagnostic Data Brain CT 10/20/18 15:56 IMPRESSION: Normal unenhanced CT scan of the brain. Electronically Signed: Vic Peña MD at 17:36 EDT , Service support , Lumbar Spine MRI 10/20/18 15:56 IMPRESSION: Multilevel degenerative disease and postoperative change as described. Moderate bilateral foraminal stenoses at the L3-4 level. Electronically Signed: Tom Gaines MD at 19:45 EDT Tel , Service support , Operations: None Procedures: None Summary of Care Provided: The patient is a 52 year old F was admitted on 10/20/2018 from her primary care doctor's office on account of abnormal labs. Labs had shown potassium of 2 so she was sent to the ED. In the ED, repeat potassium was 2.2. Patient also complained of frequent falls and says she hit her head when she fell. She had been getting progressively weak. Patient lives with her friend who is her primary caregiver. She denied having loss of consciousness with falls. Managed for hypokalemia likely due to nausea vomiting because patient had been having some nausea and vomiting while at home. An MRI was ordered of her back to assess for any acute pathology. Potassium was replaced. Magnesium was within normal limits. Potassium gradually trended up to around 4. Hydrochlorothiazide was discontinued on account of it causing low potassium and she was started on metoprolol. PT OT reviewed patient. Patient refused SNF placement and preferred to go home I said she could get therapy at home and she had had therapy coming out 3 times a week. Of note, on day of discharge, patient's hemoglobin noted to have dropped from 9.6-8.4. Review of patient's chart shows that she had come in earlier in the month with similar anemia and had been transferred to [facility] where she had an EGD. Review of clinic Center. EGD showed a large gastric/anastomotic ulcer he was started on pantoprazole. She was informed to follow-up with colonoscopy on outpatient basis. Right and also showed multilevel degenerative disease and postoperative change as described with moderate bilateral foraminal stenosis at the L3-L4 level. This had been previously diagnosed and this is what emergently transferred to [facility] about 3 weeks ago from [facility]. She had been recommended for physical therapy at [facility]. Patient continue with intensive physical therapy on outpatient basis and to follow-up with spine surgeon at [facility] for further review. ] Patient seen and examined prior to review. She had no complaints and felt well. Review of systems otherwise negative. Labs and vitals reviewed. Home medication reviewed on consult. o/e: Vital Signs Height 5 ft 2.99 in Weight: 115 lb 15.41 oz Weight in Pounds 116.0 lbs Pulse Ox 99 Temperature 98.4 F Pulse Rate 67 Respiratory Rate 18 Blood Pressure 124/89 Blood Pressure Position Supine - - mild distress- was retching during HEENT: Atraumatic, PERRLA, EOMI, Normocephalic Oral: Dry Mucosa Neck: Supple, No JVD, Negative Carotid Bruits Lungs: Clear to auscultation, Normal air movement, No rhonchi, No wheeze, No rales Cardiovascular: Regular rate, Regular Rhythm, Normal S1, Normal S2, No murmurs Abdomen: Bowel Sounds Present, Soft, Non Tender, Non-Distended, No Hepato-splenomegaly Extremities: No clubbing, No cyanosis, No edema, Capillary Refill Less than 3 Seconds Skin: No rashes, No breakdown Musculoskeletal: No Tenderness to Palpation of Joints or Extremities Lymphatic: No Cervical, Supraclavicular, or Inguinal Adenopathy Neurological: Cranial nerves II-XII grossly intact, Neuro grossly intact, Motor Exam 5/5 strength throughout Psych/Mental Status: Normal Affect, Appropriate, Alert and oriented to time, place, person, mood and affect 1. Hypokalemia likely due to malnutrition and nausea and vomiting resolved. HCTZ discontinued and patient started on PO metoprolol. 2. Debility due to malnutrition and mechanical falls Lumbar spine MRI showed multilevel degenerative disease and postoperative changes with moderate bilateral foraminal stenosis at the L3-L4 level. PT/OT consulted. refused placement. To follow up with PT/OT. Has PT/OT coming to her house 3x weekly 3. 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 To follow up with endocrinologuist at [facility] 4. Mechanical falls: as under 2. CT head was negative. PT/OT on board. Plan as described above. Patient Problems: Active and Suspected Problems Hypokalemia (Acute) Adult failure to thrive (Acute) - Physical Exam Vital Signs Temp Pulse Resp BP Pulse Ox 98.4 F 67 18 124/89 H 99 10/22/18 08:50 10/22/18 11:16 10/22/18 08:50 10/22/18 08:50 10/22/18 08:50 Oxygen Delivery Method Room Air Weight: 115 lb 15.41 oz Body Mass Index (BMI) 20.5 Intake and Output for Last 24 Hours 10/20/18 10/21/18 10/22/18 23:59 23:59 23:59 Intake Total 1188 / 1188 1245 / 1245 720 / 720 Output Total 550 / 550 600 / 600 400 / 400 Balance 638 / 638 645 / 645 320 / 320 Laboratory Tests Past 24 Hrs 10/22/18 10/22/18 10/22/18 07:50 07:50 07:50 WBC 5.4 RBC 2.43 L Hgb 8.4 L Hct 25.4 L MCV 104.5 H MCH 34.6 H MCHC 33.1 RDW 15.7 H RDW Differential 60.4 H Plt Count 191 MPV 8.0 Immature Gran % (Auto) 0.400 Neut % (Auto) 58.8 Lymph % (Auto) 27.4 Graham % (Auto) 5.4 Eos % (Auto) 8.0 H Baso % (Auto) 0.0 Absolute Neuts (auto) 3.2 Absolute Lymphs (auto) 1.48 Total Counted Not Reportable Sodium 142 Potassium 4.4 Chloride 107 Carbon Dioxide 31.0 Anion Gap 4 L BUN 13 Creatinine 0.29 L Estim Creat Clear Calc 179.48 Est GFR (MDRD) Af Amer 315 Est GFR (MDRD) Non-Af 261 BUN/Creatinine Ratio 45.3 H Glucose 78 Calcium 7.4 L Iron 36 L TIBC 121 L Iron Saturation 29.8 Ferritin 36 POC Glucose 10/22/18 11:27 POC Glucose 129 H Discharge Activity: Return to Normal Activity Weight Bearing Status: Weight bearing as tolerated Call your doctor if you observe: Numbness or Tingling, Shortness of breath, Dizziness Home Medications: Medications to take at Discharge Duloxetine HCl 60 mg PO BID 08/17/18 Levothyroxine Sodium 125 mcg PO DAILY 08/17/18 Oxycodone HCl/Acetaminophen [Oxycodon-Acetaminophen 7.5-325] 1 tab PO Q6H PRN PRN 08/17/18 Quetiapine Fumarate 25 mg PO BID 08/17/18 Bupropion HCl [Wellbutrin Xl] 150 mg PO DAILY 09/13/18 Hydrocortisone [Cortef] 20 mg PO DAILY 09/13/18 Hydroxyzine Pamoate [Vistaril] 100 mg PO BID PRN PRN 09/13/18 Valacyclovir HCl [Valtrex] 2,000 mg PO BID PRN 09/13/18 Hydrocortisone [Cortef] 10 mg PO QHS 10/20/18 Lorazepam [Ativan] 0.5 mg PO BID PRN PRN 10/20/18 Polyethylene Glycol 3350 17 g PO DAILY PRN 10/20/18 Potassium Chloride [K-Dur] 20 meq PO DAILY 10/20/18 Sucralfate 1 gm PO ACHS 10/20/18 Tizanidine HCl 4 mg PO QHS 10/20/18 traZODone [Desyrel] 100 mg PO QHS PRN PRN 10/20/18 Metoprolol(XL)Succ [Toprol Xl (Beta Jordan)] 25 mg PO DAILY #30 tablet 10/22/18 Omeprazole 40 mg PO DAILY #30 capsule. 10/22/18 Following Prescrptions Were Given to Patient: Metoprolol(XL)Succ [Toprol Xl (Beta Jordan)] 25 mg PO DAILY #30 tablet Omeprazole 40 mg PO DAILY #30 capsule. Primary Care Physician: Tom Roberto MD [Primary Care Provider] - Please follow up with your Primary Care Physician in: one week Please Follow Up With: Tom Roberto MD Patient Instructions: Discharge Instructions for Hypokalemia, Discharge Instructions: Eating a High Potassium Diet Disposition: Home with Home Health Minutes spent on discharge:: 35 Patient Condition:: Stable Medical Necessity - Tobacco Use Smoking Status: Never smoker Tobacco Use: Non-smoker Meaningful Use Info Meaningful Use Diagnoses (Choose all that apply): None applicable Code Visit Inpatient E&M: 72455 Disch Hosp
--- NOTE | 2018-10-22 15:02 | DS.PCM_ITS ---
Discharge Date and Diagnosis - Problem List Patient Problems: Active and Suspected Problems Hypokalemia (Acute) Adult failure to thrive (Acute) Date of Admission: 10/20/18 Date of Discharge: 10/22/18 - Primary Discharge Diagnosis Active and Suspected Problems Hypokalemia (Acute) Adult failure to thrive (Acute) debility due to mechanical falls. - Secondary Discharge Diagnosis Chronic Problems Chronic paraplegia (Chronic) Hypothyroidism (Chronic) Hypertension (Chronic) Anxiety and depression (Chronic) Acromegaly (Chronic) History of pituitary surgery (Chronic) Rheumatoid arthritis (Chronic) Leg weakness, bilateral (Chronic) Hospital Course and Treatment Imaging Results: Diagnostic Data Brain CT 10/20/18 15:56 IMPRESSION: Normal unenhanced CT scan of the brain. Electronically Signed: Vic Peña MD at 17:36 EDT , Service support , Lumbar Spine MRI 10/20/18 15:56 IMPRESSION: Multilevel degenerative disease and postoperative change as described. Moderate bilateral foraminal stenoses at the L3-4 level. Electronically Signed: Tom Gaines MD at 19:45 EDT Tel , Service support , Operations: None Procedures: None Summary of Care Provided: The patient is a 52 year old F was admitted on 10/20/2018 from her primary care doctor's office on account of abnormal labs. Labs had shown potassium of 2 so she was sent to the ED. In the ED, repeat potassium was 2.2. Patient also complained of frequent falls and says she hit her head when she fell. She had been getting progressively weak. Patient lives with her friend who is her primary caregiver. She denied having loss of consciousness with falls. Managed for hypokalemia likely due to nausea vomiting because patient had been having some nausea and vomiting while at home. An MRI was ordered of her back to assess for any acute pathology. Potassium was replaced. Magnesium was within normal limits. Potassium gradually trended up to around 4. Hydrochlorothiazide was discontinued on account of it causing low potassium and she was started on metoprolol. PT OT reviewed patient. Patient refused SNF placement and preferred to go home I said she could get therapy at home and she had had therapy coming out 3 times a week. Of note, on day of discharge, patient's hemoglobin noted to have dropped from 9.6-8.4. Review of patient's chart shows that she had come in earlier in the month with similar anemia and had been transferred to [facility] where she had an EGD. Review of clinic Center. EGD showed a large gastric/anastomotic ulcer he was started on pantoprazole. She was informed to follow-up with colonoscopy on outpatient basis. Right and also showed multilevel degenerative disease and postoperative change as described with moderate bilateral foraminal stenosis at the L3-L4 level. This had been previously diagnosed and this is what emergently transferred to [facility] about [address] [facility]. She had been recommended for physical therapy at [facility]. Patient continue with intensive physical therapy on outpatient basis and to follow-up with spine surgeon at [facility] for further review. ] Patient seen and examined prior to review. She had no complaints and felt well. Review of systems otherwise negative. Labs and vitals reviewed. Home medication reviewed on consult. o/e: Vital Signs Height 5 ft 2.99 in Weight: 115 lb 15.41 oz Weight in Pounds 116.0 lbs Pulse Ox 99 Temperature 98.4 F Pulse Rate 67 Respiratory Rate 18 Blood Pressure 124/89 Blood Pressure Position Supine - - mild distress- was retching during HEENT: Atraumatic, PERRLA, EOMI, Normocephalic Oral: Dry Mucosa Neck: Supple, No JVD, Negative Carotid Bruits Lungs: Clear to auscultation, Normal air movement, No rhonchi, No wheeze, No rales Cardiovascular: Regular rate, Regular Rhythm, Normal S1, Normal S2, No murmurs Abdomen: Bowel Sounds Present, Soft, Non Tender, Non-Distended, No Hepato- splenomegaly Extremities: No clubbing, No cyanosis, No edema, Capillary Refill Less than 3 Seconds Skin: No rashes, No breakdown Musculoskeletal: No Tenderness to Palpation of Joints or Extremities Lymphatic: No Cervical, Supraclavicular, or Inguinal Adenopathy Neurological: Cranial nerves II-XII grossly intact, Neuro grossly intact, Motor Exam 5/5 strength throughout Psych/Mental Status: Normal Affect, Appropriate, Alert and oriented to time, place, person, mood and affect 1. Hypokalemia likely due to malnutrition and nausea and vomiting * resolved. HCTZ discontinued and patient started on PO metoprolol. * 2. Debility due to malnutrition and mechanical falls * Lumbar spine MRI showed multilevel degenerative disease and postoperative changes with moderate bilateral foraminal stenosis at the L3-L4 level. * PT/OT consulted. refused placement. To follow up with PT/OT. Has PT/OT coming to her house 3x weekly * 3. 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 To follow up with endocrinologuist at [facility] 4. Mechanical falls: as under 2. CT head was negative. PT/OT on board. Plan as described above. Patient Problems: Active and Suspected Problems Hypokalemia (Acute) Adult failure to thrive (Acute) - Physical Exam Vital Signs Temp Pulse Resp BP Pulse Ox 98.4 F 67 18 124/89 H 99 10/22/18 08:50 10/22/18 11:16 10/22/18 08:50 10/22/18 08:50 10/22/18 08:50 Oxygen Delivery Method Room Air Weight: 115 lb 15.41 oz Body Mass Index (BMI) 20.5 Intake and Output for Last 24 Hours 10/20/18 10/21/18 10/22/18 23:59 23:59 23:59 Intake Total 1188 / 1188 1245 / 1245 720 / 720 Output Total 550 / 550 600 / 600 400 / 400 Balance 638 / 638 645 / 645 320 / 320 Laboratory Tests Past 24 Hrs 10/22/18 10/22/18 10/22/18 07:50 07:50 07:50 WBC 5.4 RBC 2.43 L Hgb 8.4 L Hct 25.4 L MCV 104.5 H MCH 34.6 H MCHC 33.1 RDW 15.7 H RDW Differential 60.4 H Plt Count 191 MPV 8.0 Immature Gran % (Auto) 0.400 Neut % (Auto) 58.8 Lymph % (Auto) 27.4 Henry % (Auto) 5.4 Eos % (Auto) 8.0 H Baso % (Auto) 0.0 Absolute Neuts (auto) 3.2 Absolute Lymphs (auto) 1.48 Total Counted Not Reportable Sodium 142 Potassium 4.4 Chloride 107 Carbon Dioxide 31.0 Anion Gap 4 L BUN 13 Creatinine 0.29 L Estim Creat Clear Calc 179.48 Est GFR (MDRD) Af Amer 315 Est GFR (MDRD) Non-Af 261 BUN/Creatinine Ratio 45.3 H Glucose 78 Calcium 7.4 L Iron 36 L TIBC 121 L Iron Saturation 29.8 Ferritin 36 POC Glucose 10/22/18 11:27 POC Glucose 129 H Discharge Activity: Return to Normal Activity Weight Bearing Status: Weight bearing as tolerated Call your doctor if you observe: Numbness or Tingling, Shortness of breath, Dizziness Home Medications: Medications to take at Discharge Duloxetine HCl 60 mg PO BID 08/17/18 Levothyroxine Sodium 125 mcg PO DAILY 08/17/18 Oxycodone HCl/Acetaminophen [Oxycodon-Acetaminophen 7.5-325] 1 tab PO Q6H PRN PRN 08/17/18 Quetiapine Fumarate 25 mg PO BID 08/17/18 Bupropion HCl [Wellbutrin Xl] 150 mg PO DAILY 09/13/18 Hydrocortisone [Cortef] 20 mg PO DAILY 09/13/18 Hydroxyzine Pamoate [Vistaril] 100 mg PO BID PRN PRN 09/13/18 Valacyclovir HCl [Valtrex] 2,000 mg PO BID PRN 09/13/18 Hydrocortisone [Cortef] 10 mg PO QHS 10/20/18 Lorazepam [Ativan] 0.5 mg PO BID PRN PRN 10/20/18 Polyethylene Glycol 3350 17 g PO DAILY PRN 10/20/18 Potassium Chloride [K-Dur] 20 meq PO DAILY 10/20/18 Sucralfate 1 gm PO ACHS 10/20/18 Tizanidine HCl 4 mg PO QHS 10/20/18 traZODone [Desyrel] 100 mg PO QHS PRN PRN 10/20/18 Metoprolol(XL)Succ [Toprol Xl (Beta Jordan)] 25 mg PO DAILY #30 tablet 10/22/18 Omeprazole 40 mg PO DAILY #30 capsule. 10/22/18 Following Prescrptions Were Given to Patient: Metoprolol(XL)Succ [Toprol Xl (Beta Jordan)] 25 mg PO DAILY #30 tablet Omeprazole 40 mg PO DAILY #30 capsule. Primary Care Physician: Tom Roberto MD [Primary Care Provider] - Please follow up with your Primary Care Physician in: one week Please Follow Up With: Tom Roberto MD Patient Instructions: Discharge Instructions for Hypokalemia, Discharge Instructions: Eating a High Potassium Diet Disposition: Home with Home Health Minutes spent on discharge:: 35 Patient Condition:: Stable Medical Necessity - Tobacco Use Smoking Status: Never smoker Tobacco Use: Non-smoker Meaningful Use Info Meaningful Use Diagnoses (Choose all that apply): None applicable Code Visit Inpatient E&M: 03078 Disch Hosp
--- NOTE | 2018-10-27 10:43 | CASEMGMT ---
This RN CM received call from Dao at [facility] stating that pt is active with them at this time and they are requesting H&P, D/C instructions/summary to be faxed at this time. Pt had not divulged that she was current with [facility] to this RN CM during her admission. Per Dao, she is attempting to get DULCE order from pt's PCP at this time. Dao states no further questions/concerns/needs at this time. SStaten LILIAN MORALES
== END 2018-10-22 15:27 | disposition home or self-care (01) | DRG 641 ==
LOC: ED 15:20 → PCU 10-21 07:06
PROVIDERS: Emergency Provider Emergency Medicine; Family Provider Family Medicine; PCP Family Medicine; Visit Provider Student in an Organized Health Care Education/Training Program
DX: E87.6 Hypokalemia (principal); E23.0 Hypopituitarism; E44.0 Moderate protein-calorie malnutrition; R29.6 Repeated falls; M48.061 Spinal stenosis, lumbar region without neurogenic claudication; R62.7 Adult failure to thrive; Z68.20 Body mass index [BMI] 20.0-20.9, adult; R53.81 Other malaise; M06.9 Rheumatoid arthritis, unspecified; F41.9 Anxiety disorder, unspecified; F32.9 Major depressive disorder, single episode, unspecified; I10 Essential (primary) hypertension; D64.9 Anemia, unspecified; E03.9 Hypothyroidism, unspecified
CPT/HCPCS: 36415; 70450; 72148; 80048; 82728; 82962; 83540; 83550; 83735; 85025; 93005; 97162; 97166; 97530; 97802; 99285; J7030; A4216

== ENCOUNTER 2018-11-02 13:11 | Emergency (ER) | payer MEDICARE, SELFPAY ==
[2018-10-20 15:38] VITALS: BMI 20.5
[2018-11-02 13:12] VITALS: BP 145/109; PULSE 109; RESP 16; TEMP 36.6; O2SAT 97; BMI 19.8
--- NOTE | 2018-11-02 13:57 | CT_ITS ---
STUDY: CT BRAIN WITHOUT CONTRAST REASON FOR EXAM: Female, 52 years old. Syncope, headache RADIATION DOSAGE (If Supplied By Facility): CTDIvol = ( 44.99 ) mGy, DLP = ( 745.49 ) mGycm TECHNIQUE: Transaxial CT imaging of the brain was performed without administration of intravenous contrast material. Individualized dose optimization techniques were used for this CT. COMPARISON: 10/20/2018 FINDINGS: Normal soft tissue structures. Normal calvarium. Normal size ventricles and extra-axial spaces for the patient's age. Normal white matter tracts of the cerebral hemispheres. Normal basal ganglia and thalami. Normal brainstem. Normal cerebellum. There is no intracranial hemorrhage. There are no findings of an acute ischemic infarction. Normal visualized paranasal sinuses. CT/Brain/Head without Contrast IMPRESSION: Normal unenhanced CT scan of the brain. Electronically Signed: Mani Blas MD at 15:15 EDT , Service support ,
--- NOTE | 2018-11-02 13:57 | EKG12_ITS ---
Test Reason : Blood Pressure : / mmHG Vent. Rate : 095 BPM Atrial Rate : 095 BPM P-R Int : 144 ms QRS Dur : 072 ms QT Int : 384 ms P-R-T Axes : 057 000 056 degrees QTc Int : 482 ms Normal sinus rhythm Low voltage QRS Prolonged QT Abnormal ECG Confirmed by KEVIN RICE, GARRETT ([id number]), editor publications GER ZHANG ([id number]) on 11/04/2018 9:16:57 AM Referred By: CHRIS Confirmed By:GARRETT BROWN MD
--- NOTE | 2018-11-02 13:58 | CT_ITS ---
STUDY: CT FACIAL BONES WITHOUT CONTRAST REASON FOR EXAM: Female, 52 years old. Headache, hypertension syncope, headache, hypertension RADIATION DOSAGE (If Supplied By Facility): CTDIvol = ( 29.38 ) mGy, DLP = ( 598.88 ) mGycm TECHNIQUE: The patient was scanned in a multi detector CT scanner. Sagittal and coronal images were reconstructed. Individualized dose optimization techniques were used for this CT. COMPARISON: None. FINDINGS: Normal soft tissue structures. Normal orbital celis and orbital contents. Normal nasal bones and anterior nasal spine. Normal facial bones. There is no demonstrated fracture. Normal visualized paranasal sinuses. CT/Sinus/Facial Bone IMPRESSION: Normal unenhanced CT of the facial bones. Electronically Signed: Mani Blas MD at 15:20 EDT , Service support ,
--- NOTE | 2018-11-02 14:00 | RAD_ITS ---
STUDY: X-RAY CHEST REASON FOR EXAM: Female, 52 years old. Hypertension. TECHNIQUE: Single AP portable view of the chest. COMPARISON: Comparison is made with prior study dated September 13, 2018. FINDINGS: EKG electrodes are seen. The lungs are clear and expanded. There is no demonstrated pleural abnormality. Normal size heart. Normal mediastinum and apple. Normal visualized pulmonary arteries. There is atherosclerotic tortuosity of the aortic arch and descending thoracic aorta. Normal visualized thoracic spine. Normal visualized ribs, clavicles, and shoulders. There is no demonstrated abnormality of the visualized soft tissue structures of the upper abdomen. RAD/Chest 1 View (Portable) IMPRESSION: No acute abnormality is seen. Electronically Signed: Jamshid Castillo, at 15:27 EDT , Service support ,
[2018-11-02 14:36] LABS: Absolute Lymphocyte Count 1.32 X10^3/ul (0.83-4.51); Absolute Neutrophil Count 3.2 X10^3/uL (2.0-7.7); Basophil# 0.02 X10^3/uL; Basophil% 0.4 % (0-1); Eosinophil# 0.46 X10^3/uL; Eosinophils% 8.5 % (0-5); Hematocrit 30.2 % (37-47); Hemoglobin 9.7 g/dl (12.0-15.0); Lymphocyte # 1.32 X10^3/ul (4.0); Lymphocyte % 24.4 % (19-41); Mean Corp Hgb Conc 32.1 g/gl (32-36); Mean Corpuscular Hgb 33.2 pg (27.0-32.0); Mean Corpuscular Volume 103.4 fL (81-99); Mean Platelet Vol. 8.1 fl (6.2-12.0); Monocyte# 0.35 X10^3/uL; Monocyte% 6.5 % (0-10); Neutrophil # 3.24 X10^3/uL (2.7-7.7); Platelet Count 256 K/mm3 (150-450); RBC Distribution Width CV 14.8 % (11.6-14.6); RBC Distribution Width SD 56.3 fl (35.1-43.9); Red Blood Count 2.92 M/mm3 (4.2-5.4); White Blood Count 5.4 K/mm3 (4.4-11.0)
[2018-11-02 14:37] LABS: POSITIVE COUNT NO; POSITIVE DIFFERENTIAL NO; POSITIVE MORPHOLOGY NO
[2018-11-02 14:39] VITALS: BP 130/110; BP 132/108; BP 133/103; PULSE 109; PULSE 114; PULSE 95
[2018-11-02 14:45] LABS: D-Dimer Quantitative (DVT/PE) 0.58 FEU/ug/m (0.27-0.49)
[2018-11-02 14:50] LABS: ALB/GLOB Ratio 0.7 RATIO (0.9-2.4); AST(SGOT) 22 U/L (15-37); Alanine Aminotransfer ALT/SGPT 24 U/L (13-56); Albumin, Serum 1.9 g/dL (3.2-5.0); Alkaline Phosphatase 95 U/L (45-117); Anion Gap 6 (5-15); BUN 14 mg/dL (7-18); BUN/Creat Ratio 36.5 RATIO (10-20); Calcium,Total 7.4 mg/dL (8.5-10.1); Chloride 108 mmol/L (98-107); Creatinine, Serum 0.38 mg/dL (0.55-1.02); EST Glomerular Filtration Rate 186 mL/min (>60); Est Glom Filt Rate - Afr Amer 225 mL/min (>60); Estimated Creatinine Clearance 138.89 ml/min; Globulin 2.8 g/dL (2.2-4.2); Glucose 86 mg/dL (74-106); Potassium 3.7 mmol/L (3.5-5.1); Protein, Total 4.7 g/dL (6.4-8.2); Sodium Level 144 mmol/L (136-145)
--- NOTE | 2018-11-02 15:04 | CT_ITS ---
STUDY: CTA CHEST REASON FOR EXAM: Female, 52 years old. Chest pain and tachycardia RADIATION DOSAGE (If Supplied By Facility): CTDIvol = ( 5.83 ) mGy, DLP = ( 155.77 ) mGycm TECHNIQUE: The examination was performed with the intravenous administration of 100 IV Isovue 370. Post-processing of the angiographic images was performed, with multiplanar reformation and 3D reconstruction. Individualized dose optimization techniques were used for this CT. COMPARISON: Previous chest x-rays FINDINGS: Normal enhancement of the main pulmonary artery and right and left pulmonary arteries. Normal enhancement of the bilateral peripheral pulmonary arteries. There is no demonstrated pulmonary embolism. Normal thoracic aorta and visualized great vessels. There is no demonstrated aortic dissection. Normal heart and pericardium. Normal mediastinum. Normal hilar regions. There is peribronchial thickening. The lungs are well expanded. Diffuse interstitial edema noted in both lung velasquez. Normal pleura. Normal chest wall structures. There are degenerative changes of thoracic spine. Limited cuts through the upper abdomen show postsurgical changes at the GE junction. There is diffuse induration of the subcutaneous fat suggesting anasarca. CT/CTA Chest W/WO Contrast IMPRESSION: No demonstrated PE, or thoracic aortic aneurysm or dissection Pulmonary vascular congestion Diffuse induration of the subcutaneous fat Electronically Signed: Mani Blas MD at 15:35 EDT , Service support ,
[2018-11-02 15:55] VITALS: BP 139/109; PULSE 96; RESP 16; O2SAT 98
--- NOTE | 2018-11-02 16:12 | ED.RN ---
PT REQUESTED PAIN MEDICATION FOR LOWER BACK PAIN. DR. LICEA INFORMED OF SAME. NO NEW ORDERS AT THIS TIME.
--- NOTE | 2018-11-02 16:26 | ED.VISSUMM ---
- ER Visit Summary Date of Service: 11/02/18 Chief Complaint: [High blood pressure] History of Present Illness: The patient is a 52 F [presents the emergency department complaint high blood pressure that was noted today by her visiting nurse and was advised to come to the emergency department. Patient denies any chest pain or shortness of breath. She denies any headache. Patient states that she was admitted to [facility] about a month ago for pneumonia and at that time she was having frequent falls and just generalized weakness. Patient was complaining at that time of feeling lightheaded and dizzy with standing and walking. Patient apparently had all her blood pressure medicine discontinued at that time. Patient also taken off of her diuretic at that time. Patient does have a history of hypertension and history of depression. Prior surgical history includes appendectomy, cholecystectomy, hysterectomy.] Physical Examination: [HEENT-PERRLA, EOMI. Cranial nerves II through XII grossly intact. TMs clear. Mucous membranes moist. No adenopathy. Patient has edema to left side of the face as well as to left lower eyelid. Cardiovascular-regular rate and rhythm without murmur or ectopy Lungs-clear to auscultation, chest wall stable without crepitus or subcu emphysema Abdomen-normoactive bowel sounds, soft, nontender, no rebound or rigidity, no peritoneal signs. Extremities-intact ?4, normal range of motion, normal pulses, atraumatic. Patient does have edema to the lower extremities bilaterally that symmetrical. +2.] Test Results: [EKG obtained on arrival shows sinus rhythm with a ventricular rate of 95 bpm with a slightly prolonged QT however no acute ST segment changes. CBC with differential showed a white count of 5.4, hemoglobin 9.7, hematocrit 30, platelet 256. Chemistries unremarkable. LFTs unremarkable. Troponin was 0.020. Orthostatic were negative. D-dimer was 0.58. Chest x-ray showed nothing acute. CT scan of the chest with contrast showed no evidence of PE or dissection although he did have some pulmonary edema noted. CT of the facial bones and CT of the brain were unremarkable.] Emergency Department Course and Treatment: [Patient received 1 OxyIR for her chronic back pain. I did discuss case with patient's primary care physician Dr. Roberto who did not want to start any further antihypertensives at this time given her history of orthostasis. Patient continues to tell me that every other day she feels like she might pass out when she stands up.] Patient's systolic blood pressures have been in the 130s however her diastolics have been elevated in the low 100s. Treatment Plan: [Patient to follow-up with Dr. Lin in the office within next 3 to 5 days. Patient to keep a journal of her blood pressures.] Disposition: [Discharged home in stable condition] Impression: [Hypertension Dizziness-etiology uncertain ] This note was generated with [employer] software. It may contain incorrect words, spelling, and punctuation that were not noted in review of the chart prior to signing ED Disposition - Plan for ED Patient: Instructions: ED HTN Established Referrals: Tom Roberto MD [Primary Care Provider] - 3-5 Days
--- NOTE | 2018-11-02 16:31 | ED.DCSUM_ITS ---
- ER Visit Summary Date of Service: 11/02/18 Chief Complaint: [High blood pressure] History of Present Illness: The patient is a 52 F [presents the emergency department complaint high blood pressure that was noted today by her visiting nurse and was advised to come to the emergency department. Patient denies any chest pain or shortness of breath. She denies any headache. Patient states that she was admitted to [facility] about a month ago for pneumonia and at that time she was having frequent falls and just generalized weakness. Patient was complaining at that time of feeling lightheaded and dizzy with standing and walking. Patient apparently had all her blood pressure medicine discontinued at that time. Patient also taken off of her diuretic at that time. Patient does have a history of hypertension and history of depression. Prior surgical history includes appendectomy, cholecystectomy, hysterectomy.] Physical Examination: [HEENT-PERRLA, EOMI. Cranial nerves II through XII grossly intact. TMs clear. Mucous membranes moist. No adenopathy. Patient has edema to left side of the face as well as to left lower eyelid. Cardiovascular-regular rate and rhythm without murmur or ectopy Lungs-clear to auscultation, chest wall stable without crepitus or subcu emphysema Abdomen-normoactive bowel sounds, soft, nontender, no rebound or rigidity, no peritoneal signs. Extremities-intact ?4, normal range of motion, normal pulses, atraumatic. Patient does have edema to the lower extremities bilaterally that symmetrical. +2.] Test Results: [EKG obtained on arrival shows sinus rhythm with a ventricular rate of 95 bpm with a slightly prolonged QT however no acute ST segment changes. CBC with differential showed a white count of 5.4, hemoglobin 9.7, hematocrit 30, platelet 256. Chemistries unremarkable. LFTs unremarkable. Troponin was 0.020. Orthostatic were negative. D-dimer was 0.58. Chest x-ray showed nothing acute. CT scan of the chest with contrast showed no evidence of PE or dissection although he did have some pulmonary edema noted. CT of the facial bones and CT of the brain were unremarkable.] Emergency Department Course and Treatment: [Patient received 1 OxyIR for her chronic back pain. I did discuss case with patient's primary care physician Dr. Roberto who did not want to start any further antihypertensives at this time given her history of orthostasis. Patient continues to tell me that every other day she feels like she might pass out when she stands up.] Patient's systolic blood pressures have been in the 130s however her diastolics have been elevated in the low 100s. Treatment Plan: [Patient to follow-up with Dr. Lin in the office within next 3 to 5 days. Patient to keep a journal of her blood pressures.] Disposition: [Discharged home in stable condition] Impression: [Hypertension Dizziness-etiology uncertain ] This note was generated with [employer] software. It may contain incorrect words, spelling, and punctuation that were not noted in review of the chart prior to signing ED Disposition - Plan for ED Patient: Instructions: ED HTN Established Referrals: Tom oRberto MD [Primary Care Provider] - 3-5 Days
--- NOTE | 2018-11-02 16:31 | ED.DEP ---
ED Disposition - Plan for ED Patient: Instructions: ED HTN Established Referrals: Tom Roberto MD [Primary Care Provider] - 3-5 Days
[2018-11-02] MEDS: oxyCODONE 5 MG Tablet PO (16:38)
[2018-11-02 16:39] VITALS: BP 150/113; PULSE 95; RESP 15; O2SAT 98
== END 2018-11-02 16:51 | disposition home or self-care (01) ==
PROVIDERS: Emergency Provider Emergency Medicine; Family Provider Family Medicine; PCP Family Medicine
DX: R42 Dizziness and giddiness (principal); I10 Essential (primary) hypertension
CPT/HCPCS: 70450; 70486; 71045; 71275; 80053; 84484; 85025; 85379; 93005; 99285; Q9967; A4216

== ENCOUNTER → 2018-11-09 05:00 | Outpatient (REF) | payer MEDICARE, SELFPAY ==
[2018-11-02 13:12] VITALS: BMI 19.8
[2018-11-09 08:45] LABS: Hematocrit 26.3 % (37-47); Hemoglobin 8.6 g/dl (12.0-15.0); Mean Corp Hgb Conc 32.7 g/gl (32-36); Mean Corpuscular Hgb 33.9 pg (27.0-32.0); Mean Corpuscular Volume 103.5 fL (81-99); Mean Platelet Vol. 8.1 fl (6.2-12.0); Platelet Count 327 K/mm3 (150-450); RBC Distribution Width CV 14.6 % (11.6-14.6); RBC Distribution Width SD 55.1 fl (35.1-43.9); Red Blood Count 2.54 M/mm3 (4.2-5.4); White Blood Count 4.5 K/mm3 (4.4-11.0)
[2018-11-09 08:51] LABS: Scan Indicated on CBC? Y/N NO
[2018-11-09 09:18] LABS: Anion Gap 2 (5-15); BUN 12 mg/dL (7-18); BUN/Creat Ratio 29.4 RATIO (10-20); Calcium,Total 7.4 mg/dL (8.5-10.1); Chloride 109 mmol/L (98-107); Creatinine, Serum 0.41 mg/dL (0.55-1.02); EST Glomerular Filtration Rate 174 mL/min (>60); Est Glom Filt Rate - Afr Amer 210 mL/min (>60); Glucose 67 mg/dL (74-106); Potassium 3.4 mmol/L (3.5-5.1); Sodium Level 141 mmol/L (136-145); Thyroid Stim Hormone (TSH) 1.19 uIU/mL (0.358-3.74)
== END ==
LOC: OLS.AVEB 05:00
PROVIDERS: Visit Provider Family Medicine
DX: I10 Essential (primary) hypertension (principal); D64.9 Anemia, unspecified
CPT/HCPCS: 36415; 80048; 84443; 85027

== ENCOUNTER → 2018-11-23 05:00 | Outpatient (REF) | payer MEDICARE, SELFPAY ==
[2018-11-02 13:12] VITALS: BMI 19.8
[2018-11-23 08:00] LABS: Hematocrit 26.5 % (37-47); Hemoglobin 8.5 g/dl (12.0-15.0); Mean Corp Hgb Conc 32.1 g/gl (32-36); Mean Corpuscular Hgb 33.3 pg (27.0-32.0); Mean Corpuscular Volume 103.9 fL (81-99); Mean Platelet Vol. 8.3 fl (6.2-12.0); Platelet Count 295 K/mm3 (150-450); RBC Distribution Width CV 13.3 % (11.6-14.6); RBC Distribution Width SD 50.6 fl (35.1-43.9); Red Blood Count 2.55 M/mm3 (4.2-5.4); White Blood Count 4.7 K/mm3 (4.4-11.0)
[2018-11-23 08:03] LABS: Scan Indicated on CBC? Y/N NO
[2018-11-23 08:09] LABS: Anion Gap 1 (5-15); BUN 18 mg/dL (7-18); BUN/Creat Ratio 42.1 RATIO (10-20); Calcium,Total 7.6 mg/dL (8.5-10.1); Chloride 111 mmol/L (98-107); Creatinine, Serum 0.43 mg/dL (0.55-1.02); EST Glomerular Filtration Rate 164 mL/min (>60); Est Glom Filt Rate - Afr Amer 199 mL/min (>60); Glucose 78 mg/dL (74-106); Potassium 3.9 mmol/L (3.5-5.1); Sodium Level 142 mmol/L (136-145)
== END ==
LOC: OLS.AVEB 05:00
PROVIDERS: Visit Provider Family Medicine
DX: E03.9 Hypothyroidism, unspecified (principal)
CPT/HCPCS: 36415; 80048; 85027

== ENCOUNTER → 2019-01-07 | Outpatient (CLI) | payer MEDICARE, SELFPAY ==
[2019-01-07] VITALS (7 sets, daily range): BP systolic 125–147; BP diastolic 85–93; PULSE 68–87; RESP 16; TEMP 36.3–37.2; O2SAT 100; BMI 21.2
== END | disposition home or self-care (01) ==
LOC: MEDOUTP 07:49
PROVIDERS: Family Provider Family Medicine; PCP Family Medicine; Referring Provider Physician Assistant; Visit Provider Physician Assistant
DX: D50.9 Iron deficiency anemia, unspecified (principal)
CPT/HCPCS: 36415; 36430; 86644; 86850; 86900; 86920; 86922; J7040; P9016; A4216

== ENCOUNTER 2019-02-26 10:57 | Observation (INO) | payer MEDICARE, SELFPAY ==
[2019-01-07 08:11] VITALS: BMI 21.2
[2019-02-26] VITALS (7 sets, daily range): BP systolic 108–130; BP diastolic 84–101; PULSE 57–71; RESP 12–18; TEMP 36.3–37.1; O2SAT 99–100; BMI 20.1; BMI 20.7
--- NOTE | 2019-02-26 11:27 | EKG12_ITS ---
Test Reason : SYNCOPE Blood Pressure : / mmHG Vent. Rate : 064 BPM Atrial Rate : 064 BPM P-R Int : 140 ms QRS Dur : 082 ms QT Int : 466 ms P-R-T Axes : 053 006 050 degrees QTc Int : 480 ms Normal sinus rhythm Prolonged QT Abnormal ECG Confirmed by FRANCA RICE, GLADIS ([id number]), assignment desk editor GER ZHANG ([id number]) on 02/28/2019 1:40:46 PM Referred By: Bailey Palacios Confirmed By:GLADIS SCHULTE MD
--- NOTE | 2019-02-26 11:27 | CT_ITS ---
STUDY: CT BRAIN WITHOUT CONTRAST REASON FOR EXAM: Female, 53 years old. Syncope today with increasing falls and weakness RADIATION DOSAGE (If Supplied By Facility): CTDIvol = ( 44.9 ) mGy, DLP = ( 748.30 ) mGycm TECHNIQUE: Transaxial CT imaging of the brain was performed without administration of intravenous contrast material. Individualized dose optimization techniques were used for this CT. COMPARISON: 10/20/2018 FINDINGS: Normal soft tissue structures. Normal calvarium. Normal size ventricles and extra-axial spaces for the patient's age. Normal white matter tracts of the cerebral hemispheres. Normal basal ganglia and thalami. Normal brainstem. Normal cerebellum. There is no intracranial hemorrhage. There are no findings of an acute ischemic infarction. Normal visualized paranasal sinuses. CT/Brain/Head without Contrast IMPRESSION: Normal unenhanced CT scan of the brain. Electronically Signed: Karl Pereyra MD (Brooks) at 12:04 EDT , Service support ,
--- NOTE | 2019-02-26 11:29 | ED.DCSUM_ITS ---
History of Present Illness Chief Complaint: Syncope Informant: Patient Onset: Today Current Severity: Mild Maximum Severity: Mild Narrative: Patient presents via EMS after syncopal episode. She states that she was walki andre in the kitchen and talking with a friend. She members feeling dizzy and fell to the floor, but did not pass out. She is able to get herself up and thought she was okay. She had recurrent dizziness and fell to the floor with a syncopal episode. She complains of pain to the bilateral toes into her left knee. She does have history of chronic bilateral lower extremity weakness secondary to ismael or back surgery. She has had significant recent weight loss with increasing weakness. Patient does report to have a history of frequent falls. Past Medical History - Allergies and Home Meds Allergies/Adverse Reactions: Allergies No Known Allergies Allergy (Verified 01/07/19 08:17) Primary Care Physician: Tom Roberto MD [Primary Care Provider] - Prior records reviewed: Yes Past Medical History: - - Reviewed Surgical History: - - Lumbar surgery Smoking Status: Never smoker - Family History Paternal Family History: Reports: No pertinent history - no Family history of neurological disease in parents Review of Systems General: Denies: Chills, Fever Eyes: Denies: Visual changes - bilaterally ENT: Denies: Bilateral ear pain Cardiovascular: Denies: Chest pain, Palpitations, Heart racing Respiratory: Denies: Dyspnea, Cough Gastrointestinal: Denies: Abdominal pain, Nausea, Vomiting, Diarrhea Musculoskeletal: Reports: Myalgias Neurological: Reports: Weakness - Generalized, Parasthesia - Chronic lower extremity paresthesias. Denies: Headache Hematologic: Denies: Easy bruising Allergy: Denies: Uticaria Physical Exam Vital Signs/Narrative: Vital Signs Temp Pulse Resp BP Pulse Ox 02/26/19 10:58 98.7 F 67 12 108/90 H 99 Inital Vital Signs reviewed: Yes General: Well nourished, Well developed Eyes: Perrl, EOMI ENT: Moist mucous membranes Neck: Supple Cardiovascular: Regular rate, Regular rhythm Respiratory: No distress, CTA bilaterally Abdomen: Soft, Nontender, Nondistended Back: Nontender Extremities: Tenderness - Mild tenderness of the left anterior knee with superficial abrasions. Good range of motion. No reproducible tenderness over her feet or toes. Skin: - - Abrasions as above. Neurological: Alert, Oriented x3, - - Chronic lower extremity weakness, unchanged from baseline per patient. Diagnostic/Tx/Re-eval Impressions Brain CT 02/26/19 11:27 IMPRESSION: Normal unenhanced CT scan of the brain. Electronically Signed: Karl Pereyra MD ([place]) at 12:04 EDT , Service support , Chest X-Ray 02/26/19 11:55 IMPRESSION: Stable, nonacute x-ray examination of the chest. Electronically Signed: Karl Pereyra MD ([place]) at 12:24 EDT , Service support , Knee X-Ray 02/26/19 12:01 IMPRESSION: No fracture or malalignment. Electronically Signed: Karl Pereyra MD ([place]) at 12:24 EDT , Service support , 02/26/19 11:27 Brain/Head without Contrast [CT] Stat 02/26/19 11:55 Chest PA and Lateral [RAD] Stat 02/26/19 12:01 Knee 4 or More Views [RAD] Stat Laboratory Results 02/26/19 02/26/19 11:25 11:25 WBC 7.4 RBC 3.88 L Hgb 11.3 L Hct 36.1 L MCV 93.0 MCH 29.1 MCHC 31.3 L RDW Std Deviation 54.9 H RDW Coeff of Robyn 16.0 H Plt Count 245 MPV 9.0 Immature Gran % (Auto) 0.500 Neut % (Auto) 60.8 Lymph % (Auto) 28.6 [place] % (Auto) 6.1 Eos % (Auto) 3.6 Baso % (Auto) 0.4 Absolute Neuts (auto) 4.5 Absolute Lymphs (auto) 2.12 Nucleated RBC % 0 Sodium 141 Potassium 3.3 L Chloride 104 Carbon Dioxide 34.0 H Anion Gap 3 L BUN 14 Creatinine 0.71 Estim Creat Clear Calc 74.64 Est GFR (MDRD) Af Amer 111 Est GFR (MDRD) Non-Af 92 BUN/Creatinine Ratio 19.8 Glucose 88 Calcium 8.5 Troponin I < 0.015 - EKG Initial EKG Interpretation: Sinus Rhythm - Sinus at 64 with no acute ischemia. - Medical Decision Making Patient has been given 2 L of IV fluid. At this time she still does not have the urge to urinate. Her pressures have been stable. Potassium is slightly low and was replaced orally. At this time I will recommend hospitalization overnight for cardiac monitoring and further hydration. Patient is in agreement with the plan. ED Disposition - Plan for ED Patient: Disposition: Acute Care Hospital [facility] Diagnosis: Syncope Referrals: Tom Roberto MD [Primary Care Provider] -
[2019-02-26 11:42] LABS: Absolute Lymphocyte Count 2.12 X10^3/uL (0.83-4.51); Absolute Neutrophil Count 4.5 X10^3/uL (2.0-7.7); Basophil# 0.03 X10^3/uL; Basophil% 0.4 % (0-1); Eosinophil# 0.27 X10^3/uL; Eosinophils% 3.6 % (0-5); Hematocrit 36.1 % (37-47); Hemoglobin 11.3 g/dL (12.0-15.0); Lymphocyte # 2.12 X10^3/ul (4.0); Lymphocyte % 28.6 % (19-41); Mean Corp Hgb Conc 31.3 g/dL (32-36); Mean Corpuscular Hgb 29.1 pg (27.0-32.0); Monocyte# 0.45 X10^3/uL; Monocyte% 6.1 % (0-10); NRBC Flagged by Analyzer 0 % (0-5); Neutrophil # 4.51 X10^3/uL (2.7-7.7); Neutrophil % 60.8 % (47-70); Platelet Count 245 K/mm3 (150-450); RBC Distribution Width SD 54.9 fl (35.1-43.9); Red Blood Count 3.88 M/mm3 (4.2-5.4); White Blood Count 7.4 K/mm3 (4.4-11.0)
[2019-02-26 11:51] LABS: Anion Gap 3 (5-15); BUN 14 mg/dL (7-18); BUN/Creat Ratio 19.8 RATIO (10-20); Calcium,Total 8.5 mg/dL (8.5-10.1); Chloride 104 mmol/L (98-107); Creatinine, Serum 0.71 mg/dL (0.55-1.02); EST Glomerular Filtration Rate 92 mL/min (>60); Est Glom Filt Rate - Afr Amer 111 mL/min (>60); Estimated Creatinine Clearance 74.64 ml/min; Glucose 88 mg/dL (74-106); Potassium 3.3 mmol/L (3.5-5.1); Sodium Level 141 mmol/L (136-145)
--- NOTE | 2019-02-26 11:55 | RAD_ITS ---
STUDY: X-RAY CHEST REASON FOR EXAM: Female, 53 years old. Chest pain after falling TECHNIQUE: PA and lateral views of the chest. COMPARISON: 11/02/2018 FINDINGS: EKG leads project over the chest. The lungs are clear and expanded. There is no demonstrated pleural abnormality. Normal size heart. Normal mediastinum and apple. Normal visualized pulmonary arteries. Normal visualized aortic arch and descending thoracic aorta. Normal visualized thoracic spine. Normal visualized ribs, clavicles, and shoulders. There is no demonstrated abnormality of the visualized soft tissue structures of the upper abdomen. RAD/Chest PA and Lateral IMPRESSION: Stable, nonacute x-ray examination of the chest. Electronically Signed: Karl Pereyra MD ([place]) at 12:24 EDT , Service support ,
--- NOTE | 2019-02-26 12:01 | RAD_ITS ---
STUDY: X-RAY - LEFT KNEE REASON FOR EXAM: Female, 53 years old. Pain after fall, left knee pain TECHNIQUE: 4 view(s) of the knee. COMPARISON: None. FINDINGS: Normal visualized distal femur. Normal visualized proximal tibia and fibula. Normal proximal tibiofibular articulation. Normal medial femorotibial compartment. Normal lateral femorotibial compartment. Normal patellofemoral articulation. There is no demonstrated joint effusion. The soft tissue structures are unremarkable. RAD/Knee 4 or More Views IMPRESSION: No fracture or malalignment. Electronically Signed: Karl Pereyra MD ([place]) at 12:24 EDT , Service support ,
[2019-02-26] MEDS: 0.9% Normal Saline 1,000 ML 150 ML IV (13:47)
[2019-02-26] MEDS: 0.9% Normal Saline 1,000 ML 999 ML IV (13:48)
[2019-02-26] MEDS: Acetaminophen 325 MG Tablet 650 MG PO ×2 (13:52→20:21)
--- NOTE | 2019-02-26 15:33 | PCM.HP.STD ---
Problem List (1) Normochromic normocytic anemia Status: Chronic (2) Metabolic alkalosis Status: Acute (3) Syncope Status: Acute (4) Adult failure to thrive Status: Chronic (5) Hypokalemia Status: Acute (6) Acromegaly Status: Chronic (7) Anxiety and depression Status: Chronic (8) Chronic paraplegia Status: Resolved (9) History of pituitary surgery Status: Chronic (10) Hypertension Status: Chronic (11) Hypothyroidism Status: Chronic (12) Leg weakness, bilateral Status: Resolved (13) Rheumatoid arthritis Status: Chronic (14) Orthostatic hypotension Status: Acute (15) Peptic ulcer disease Status: Chronic Comment: at the site of the anastomosis of gastric bypass History of Present Illness Date of Admission: 02/26/19 Chief Complaint: passed out at home...witnessed The patient is a 53 year old F with a past medical history of hypertension, acromegaly, history of pituitary surgery, hypothyroidism, frequent falls, anxiety/depression, rheumatoid arthritis, chronic pain syndrome, history of lumbar fusion L4-5 and steroid dependence who presented to the ED at [facility] after having a witnessed syncopal episode at home. She was standing in the kitchen and fell....she got up and then fell and was unconscious. She takes a lot of sedating meds and these include Remeron, Vistaril, Phenergan, Butrans patch and Seroquel. She tells me that she has frequent falls. She has a cane and a FWW at home but does not consistently use them. She was admitted to [facility] in October for failure to thrive and BL LE weakness and [facility]. Currently she is living with a friend. Prior to October she was losing weight but this has stabilized and she weighs 2 pounds more than she did in October. Vital signs at presentation to the emergency room were temperature 98.7, pulse rate 67, blood pressure 108/90, respiratory rate 12 and she was 99% saturated on room air. The squad did orthostatics at the scene and said they were positive. They were not repeated in the ED. CBC was remarkable for a low hemoglobin at 11.3 with normochromic normocytic indices. Hemoglobin in October was 8.4. White blood cell count and platelets were within normal limits. Sodium was 141 and the potassium was low at 3.3 with a serum bicarb of 34. BUN was 14 with a creatinine of 0.71, up from 0.29 in October 2018. Troponin was less than 0.015. Chest x-ray showed no acute cardiopulmonary abnormalities. CT scan of the brain showed no acute findings. Left knee x-ray showed no fracture or dislocation. EKG showed normal sinus rhythm with no suspicious ST or T wave changes. She was a admitted to PCU with a diagnosis of syncope. Past Medical History Past Medical History (Chronic Problems): Chronic Problems Hypothyroidism (Chronic) Hypertension (Chronic) Anxiety and depression (Chronic) Acromegaly (Chronic) History of pituitary surgery (Chronic) Rheumatoid arthritis (Chronic) Adult failure to thrive (Chronic) Normochromic normocytic anemia (Chronic) Peptic ulcer disease (Chronic) at the site of the anastomosis of gastric bypass Allergies No Known Allergies Allergy (Verified 01/07/19 08:17) Home Medications: Ambulatory Orders Medication Instructions Recorded Buprenorphine [Butrans] 10 mg TD 02/26/19 Bupropion HCl [Wellbutrin Sr] 150 mg PO DAILY 02/26/19 Duloxetine Hcl [Cymbalta] 60 mg PO DAILY 02/26/19 Ergocalciferol [Vitamin D] 50,000 unit PO Q7D 02/26/19 Hydrochlorothiazide 12.5 mg PO DAILY 02/26/19 Hydrocortisone [Cortef] 10 mg PO DAILY 02/26/19 Hydroxyzine Pamoate [Vistaril] 50 mg PO BID PRN PRN 02/26/19 Levothyroxine Sodium [Synthroid] 150 mcg PO DAILY 02/26/19 Lisinopril [Zestril] 10 mg PO DAILY 02/26/19 Metoprolol Succinate [Toprol Xl] 25 mg PO DAILY 02/26/19 Mirtazapine [Remeron] 30 mg PO DAILY 02/26/19 Omeprazole [Prilosec] 40 mg PO DAILY 02/26/19 Polyethylene Glycol 3350 [Miralax] 17 gm PO DAILY PRN 02/26/19 Potassium Chloride [Klor-Con] 20 meq PO DAILY 02/26/19 Quetiapine Fumarate [Seroquel] 25 mg PO DAILY 02/26/19 Quetiapine Fumarate [Seroquel] 100 mg PO QHS 02/26/19 Sucralfate [Carafate] 1 gm PO DAILY 02/26/19 Valacyclovir HCl [Valtrex] 1,000 mg PO DAILY PRN 02/26/19 Vitamin B-12 IM QMONTH 02/26/19 proMETHazine tablet [Phenergan 25 mg PO BID PRN 02/26/19 tablet] Surgical History: gastric bypass, - - Lumbar surgery - fusion at L4-5, Psychiatric History: Anxiety, Depression EDITORIAL DIRECTOR History: No pertinent EDITORIAL DIRECTOR history Lives: Friends Smoking Status: Never smoker Tobacco Use: Non-smoker Alcohol: None Drugs: None - *Family History Paternal History Items: No pertinent history - no Family history of neurological disease in parents Maternal History Items: No pertinent history Review of Systems Constitutional: Reports: Weakness - Left leg since the lumbar fusion. Denies: Chills, Fever, Weight Change HEENT: Denies: Head Aches, Sinus Congestion, Sinus Drainage, Sore Throat Cardiovascular: Reports: Light Headedness, Syncope. Denies: Chest Pain, Edema, Orthopnea, Palpitations Respiratory: Denies: Cough, Shortness of breath at rest, Sputum production Gastrointestinal: Reports: Nausea - chronic. Denies: Abdominal Pain, Vomiting Genitourinary: Denies: Dysuria Musculoskeletal: Reports: Back Pain, Joint Pain, Joint Tenderness Skin: Denies: Jaundice, Rash, Wounds Neurological: Reports: Incoordination - trouble with balance. Denies: Focal weakness, Numbness, Tingling Psychiatric: Reports: Anxiety, Depression. Denies: Homicidal Ideations, Suicidal Ideations Endocrine: Denies: Change in Body Habitus Hematologic/ Lymphatic: Denies: Easy Bruising, Easy Bleeding, Hx of blood clot VTE Information - Inpt Only VTE Present on Admission: No VTE Mechan Device Prophylaxis: None VTE Pharm Prophylaxis ordered?: No Reason prophylaxis not ordered:: Treatment Not Indicated - risk is 1 and she is ambulatory Patient Problems: Active and Suspected Problems Syncope (Acute) Metabolic alkalosis (Acute) Orthostatic hypotension (Acute) - Physical Exam General: Alert, Oriented x3, Cooperative, No apparent distress HEENT: Atraumatic, PERRLA, EOMI, Normocephalic Oral: No Gingival or Mucosal Lesions/ Ulcerations, Dry Mucosa Neck: Supple, No JVD, Negative Carotid Bruits, No Nodes, Trachea Midline Lungs: Clear to auscultation, Normal air movement Cardiovascular: Regular rate, Regular Rhythm, Normal S1, Normal S2, No murmurs, No Ectopic Activity, No rub noted, No Gallop Abdomen: Bowel Sounds Present, Soft, Non Tender, Non-Distended Extremities: No clubbing, No cyanosis, No edema, No Calf Tenderness, Peripheral Pulses Normal Skin: No rashes, No breakdown Musculoskeletal: Muscle Wasting Neurological: Cranial nerves II-XII grossly intact, Neuro grossly intact, Motor Exam 5/5 strength throughout, - - I did not check her gait Psych/Mental Status: Appropriate, Flat Affect Vital Signs Temp Pulse Resp BP Pulse Ox 98.7 F 57 L 14 122/88 H 99 02/26/19 10:58 02/26/19 13:53 02/26/19 13:53 02/26/19 13:53 02/26/19 13:53 Oxygen Delivery Method Room Air Weight: 113 lb 12.136 oz Body Mass Index (BMI) 20.1 Laboratory Tests Past 24 Hrs 02/26/19 02/26/19 11:25 11:25 WBC 7.4 RBC 3.88 L Hgb 11.3 L Hct 36.1 L MCV 93.0 MCH 29.1 MCHC 31.3 L RDW Std Deviation 54.9 H RDW Coeff of Robyn 16.0 H Plt Count 245 MPV 9.0 Immature Gran % (Auto) 0.500 Neut % (Auto) 60.8 Lymph % (Auto) 28.6 [place] % (Auto) 6.1 Eos % (Auto) 3.6 Baso % (Auto) 0.4 Absolute Neuts (auto) 4.5 Absolute Lymphs (auto) 2.12 Nucleated RBC % 0 Sodium 141 Potassium 3.3 L Chloride 104 Carbon Dioxide 34.0 H Anion Gap 3 L BUN 14 Creatinine 0.71 Estim Creat Clear Calc 74.64 Est GFR (MDRD) Af Amer 111 Est GFR (MDRD) Non-Af 92 BUN/Creatinine Ratio 19.8 Glucose 88 Calcium 8.5 Troponin I < 0.015 Assessment/Plan All Active Problems Hypokalemia (Acute) Syncope (Acute) Metabolic alkalosis (Acute) Orthostatic hypotension (Acute) Chronic paraplegia (Resolved) Leg weakness, bilateral (Resolved) Impressions 1. syncope - more likely than not due to orthostatic hypotension 2. Orthostatic hypotension - + tilt test by the EMT's 3. Frequent falls - Multiple sedating medications likely contribute to this as well as poor balance and not using an AD 4. hx of gastric bypass surgery 5. PUD at the site of the gastric bypass anastomosis in the past - never followed up for the colonoscopy that was recommended. She has persistent nausea with poor intake and she has an Appt with a diesel engineer at [facility] main [place] this coming Thursday 6. Acromegaly with history of pituitary surgery 7. Steroid dependence 8. Rheumatoid arthritis 9. Hypertension 10. Hypothyroidism 11. Normochromic normocytic anemia 12. Anxiety/depression-she is followed at the [facility]. Mother a year ago and her of lung CA in July of 2018 13. Chronic pain syndrome-on a Butrans patch and Cymbalta 13. Metabolic alkalosis secondary to volume contraction/dehydration 14. Hypokalemia Admitted to a monitored bed on PCU Continue IV fluids Supplement potassium Recheck lab in the a.m. Recheck orthostatics in the a.m. Overnight trending pulse ox PT/OT consults Serial cardiac enzymes
[2019-02-26 17:45] LABS: Magnesium 1.7 mg/dL (1.6-2.6)
[2019-02-26 18:47] LABS: Phosphorus 3.9 mg/dL (2.5-4.9)
[2019-02-26] MEDS: Sucralfate 1 GM Tablet PO (22:09)
[2019-02-26] MEDS: QUEtiapine 100 MG Tablet PO (22:09)
[2019-02-27] VITALS (9 sets, daily range): BP systolic 116–119; BP diastolic 85–91; PULSE 59–87; RESP 14–16; TEMP 36.7–36.8; O2SAT 98–100
[2019-02-27] MEDS: Sucralfate 1 GM Tablet PO ×2 (06:13→10:52)
[2019-02-27] MEDS: Levothyroxine 150 MCG Tablet PO (06:13)
[2019-02-27 06:19] LABS: Hematocrit 30.4 % (37-47); Hemoglobin 9.2 g/dL (12.0-15.0); Mean Corp Hgb Conc 30.3 g/dL (32-36); Mean Corpuscular Hgb 28.1 pg (27.0-32.0); Mean Platelet Vol. 9.2 fl (6.2-12.0); Platelet Count 198 K/mm3 (150-450); RBC Distribution Width CV 16.1 % (11.6-14.6); RBC Distribution Width SD 55.1 fl (35.1-43.9); Red Blood Count 3.27 M/mm3 (4.2-5.4); White Blood Count 5.7 K/mm3 (4.4-11.0)
[2019-02-27 06:35] LABS: Anion Gap 6 (5-15); BUN 10 mg/dL (7-18); BUN/Creat Ratio 20.8 RATIO (10-20); Calcium,Total 8.2 mg/dL (8.5-10.1); Chloride 112 mmol/L (98-107); Creatinine, Serum 0.48 mg/dL (0.55-1.02); EST Glomerular Filtration Rate 143 mL/min (>60); Est Glom Filt Rate - Afr Amer 174 mL/min (>60); Estimated Creatinine Clearance 112.12 ml/min; Glucose 82 mg/dL (74-106); Magnesium 1.7 mg/dL (1.6-2.6); Phosphorus 4.2 mg/dL (2.5-4.9); Potassium 3.9 mmol/L (3.5-5.1); Sodium Level 146 mmol/L (136-145)
[2019-02-27] MEDS: Hydrocortisone 10 MG Tablet PO (08:20)
[2019-02-27] MEDS: Mirtazapine 30 MG Tablet PO (08:21)
[2019-02-27] MEDS: Metoprolol(XL)Succ 25 MG Tablet PO (08:21)
[2019-02-27] MEDS: DULoxetine Hcl 60 MG Capsule PO (08:21)
[2019-02-27] MEDS: QUEtiapine 25 MG Tablet PO (08:21)
[2019-02-27] MEDS: buPROPion (SR) 150 MG Tablet.SA PO (08:22)
[2019-02-27] MEDS: Lisinopril 10 MG Tablet PO (08:22)
[2019-02-27] MEDS: Magnesium Oxide 400 MG Tablet 800 MG PO (10:52)
--- NOTE | 2019-02-27 10:52 | DCINST_ITS ---
- Discharge Diagnoses Current Active Problems: Current Active and Chronic Problems Syncope (Acute) Normochromic normocytic anemia (Chronic) Metabolic alkalosis (Acute) Orthostatic hypotension (Acute) Peptic ulcer disease (Chronic) at the site of the anastomosis of gastric bypass You will use the following diet at home:: Cardiac Your food should be the consistency of: Regular Your liquids should be the consistency of: Regular/Thin Discharge Activity: Return to Normal Activity Allergies/Adverse Reactions: Allergies No Known Allergies Allergy (Verified 01/07/19 08:17) Medications to take at Discharge Buprenorphine [Butrans] 10 mg TD 02/26/19 Bupropion HCl [Wellbutrin Sr] 150 mg PO DAILY 02/26/19 Duloxetine Hcl [Cymbalta] 60 mg PO DAILY 02/26/19 Ergocalciferol [Vitamin D] 50,000 unit PO Q7D 02/26/19 Hydrochlorothiazide 12.5 mg PO DAILY 02/26/19 Hydrocortisone [Cortef] 10 mg PO DAILY 02/26/19 Hydroxyzine Pamoate [Vistaril] 50 mg PO BID PRN PRN 02/26/19 Levothyroxine Sodium [Synthroid] 150 mcg PO DAILY 02/26/19 Lisinopril [Zestril] 10 mg PO DAILY 02/26/19 Metoprolol Succinate [Toprol Xl] 25 mg PO DAILY 02/26/19 Mirtazapine [Remeron] 30 mg PO DAILY 02/26/19 Omeprazole [Prilosec] 40 mg PO DAILY 02/26/19 Polyethylene Glycol 3350 [Miralax] 17 gm PO DAILY PRN 02/26/19 Potassium Chloride [Klor-Con] 20 meq PO DAILY 02/26/19 Quetiapine Fumarate [Seroquel] 25 mg PO DAILY 02/26/19 Quetiapine Fumarate [Seroquel] 100 mg PO QHS 02/26/19 Sucralfate [Carafate] 1 gm PO DAILY 02/26/19 Valacyclovir HCl [Valtrex] 1,000 mg PO DAILY PRN 02/26/19 Vitamin B-12 IM QMONTH 02/26/19 proMETHazine tablet [Phenergan tablet] 25 mg PO BID PRN 02/26/19 Primary Care Physician: Tom Roberto MD [Primary Care Provider] - Please follow up with your Primary Care Physician in: 1-2 weeks Test Results: Test results from this visit will be discussed in further detail at your follow- up appointment, if applicable. Please Follow Up With: Psychiatric services When: 1-2 weeks Proposed Discharge Date: 02/27/19
--- NOTE | 2019-02-27 14:34 | DS.PCM_ITS ---
<Yobani Titus - Last Filed: 02/27/19 14:34> Discharge Date and Diagnosis Date of Admission: 02/26/19 Date of Discharge: 02/27/19 - Primary Discharge Diagnosis Syncope, vasovagal hypokalemia polypharmacy HTN acromegaly s/p pituitary removal hypothyroidism RA anxiety depression chronic pain syndrome lumbar fusion L4/5 - Secondary Discharge Diagnosis Chronic Problems Hypothyroidism (Chronic) Hypertension (Chronic) Anxiety and depression (Chronic) Acromegaly (Chronic) History of pituitary surgery (Chronic) Rheumatoid arthritis (Chronic) Adult failure to thrive (Chronic) Normochromic normocytic anemia (Chronic) Peptic ulcer disease (Chronic) at the site of the anastomosis of gastric bypass Hospital Course and Treatment Imaging Results: IMAGING: CT/Brain/Head without Contrast IMPRESSION: Normal unenhanced CT scan of the brain. RAD/Chest PA and Lateral IMPRESSION: Stable, nonacute x-ray examination of the chest. Operations: None Procedures: None Summary of Care Provided: Hospital course: The patient is a 53 year old F with past medical history as above who presented to the ER with complaints of syncopal episode. The patient was standing in her kitchen and suddenly fell, when she got up she fell again and lost consciousness. This was witnessed by her family. EMS was called and found to have orthostatic hypotension. She was brought to the emergency room. In the ER she had a negative CT of the brain, negative x-ray of the knee, negative chest x-ray, negative EKG, negative troponin. She had mild hypokalemia and hypomagnesemia. These were replaced. She was also given IV fluids. She was admitted to the PCU on telemetry for observation. She had no events on telemetry. Repeat orthostatic vitals were negative. The patient is taking multiple sedating medications including Butrans prescribed by pain management, Seroquel, Remeron, Vistaril, phenergan, and other psychotropic medications. She should start by attempting to reduce the usage of her PRN medications like vistaril and phenergan, and may need her doses cut back for her pain regimen and her psychiatric medications. The patient was discharged in stable condition to home as she had no further symptoms and negative for those. She will need to follow-up with her psychiatrist as well as with her PCP in 1 to 2 weeks. This patient was seen by Yobani Titus PA-C under the supervision of Doctor Clayton. [] - Physical Exam General: Alert, Oriented x3, Cooperative HEENT: Atraumatic, PERRLA, EOMI, Normocephalic Neck: Supple, No JVD, Negative Carotid Bruits Lungs: Clear to auscultation, Normal air movement Cardiovascular: Regular rate, No murmurs Abdomen: Bowel Sounds Present, Soft, Non Tender Extremities: No edema, Capillary Refill Less than 3 Seconds Skin: No rashes, No breakdown Musculoskeletal: No Tenderness to Palpation of Joints or Extremities Neurological: Cranial nerves II-XII grossly intact Psych/Mental Status: Normal Affect, Appropriate Vital Signs Temp Pulse Resp BP Pulse Ox 98.2 F 73 14 117/88 H 100 02/27/19 08:20 02/27/19 10:49 02/27/19 08:20 02/27/19 10:49 02/27/19 08:20 Oxygen Flow Rate (L/min) 0 Oxygen Delivery Method Room Air Weight: 119 lb 0.794 oz Body Mass Index (BMI) 20.7 Intake and Output for Last 24 Hours 02/25/19 02/26/19 02/27/19 23:59 23:59 23:59 Intake Total 1177 / 1177 862 / 862 Balance 1177 / 1177 862 / 862 Laboratory Tests Past 24 Hrs 02/26/19 02/26/19 02/26/19 17:00 17:00 19:30 WBC RBC Hgb Hct MCV MCH MCHC RDW Std Deviation RDW Coeff of Robyn Plt Count MPV Sodium Potassium Chloride Carbon Dioxide Anion Gap BUN Creatinine Estim Creat Clear Calc Est GFR (MDRD) Af Amer Est GFR (MDRD) Non-Af BUN/Creatinine Ratio Glucose Calcium Phosphorus 3.9 Magnesium 1.7 Troponin I < 0.015 < 0.015 02/27/19 02/27/19 05:09 05:09 WBC 5.7 RBC 3.27 L Hgb 9.2 L Hct 30.4 L MCV 93.0 MCH 28.1 MCHC 30.3 L RDW Std Deviation 55.1 H RDW Coeff of Robyn 16.1 H Plt Count 198 MPV 9.2 Sodium 146 H Potassium 3.9 Chloride 112 H Carbon Dioxide 28.0 Anion Gap 6 BUN 10 Creatinine 0.48 L Estim Creat Clear Calc 112.12 Est GFR (MDRD) Af Amer 174 Est GFR (MDRD) Non-Af 143 BUN/Creatinine Ratio 20.8 H Glucose 82 Calcium 8.2 L Phosphorus 4.2 Magnesium 1.7 Troponin I Discharge Diet: Low fat/ Low Cholesterol, 2000 mg Sodium Diet Discharge Activity: Return to Normal Activity Home Medications: Medications to take at Discharge Buprenorphine [Butrans] 10 mg TD 02/26/19 Bupropion HCl [Wellbutrin Sr] 150 mg PO DAILY 02/26/19 Duloxetine Hcl [Cymbalta] 60 mg PO DAILY 02/26/19 Ergocalciferol [Vitamin D] 50,000 unit PO Q7D 02/26/19 Hydrochlorothiazide 12.5 mg PO DAILY 02/26/19 Hydrocortisone [Cortef] 10 mg PO DAILY 02/26/19 Hydroxyzine Pamoate [Vistaril] 50 mg PO BID PRN PRN 02/26/19 Levothyroxine Sodium [Synthroid] 150 mcg PO DAILY 02/26/19 Lisinopril [Zestril] 10 mg PO DAILY 02/26/19 Metoprolol Succinate [Toprol Xl] 25 mg PO DAILY 02/26/19 Mirtazapine [Remeron] 30 mg PO DAILY 02/26/19 Omeprazole [Prilosec] 40 mg PO DAILY 02/26/19 Polyethylene Glycol 3350 [Miralax] 17 gm PO DAILY PRN 02/26/19 Potassium Chloride [Klor-Con] 20 meq PO DAILY 02/26/19 Quetiapine Fumarate [Seroquel] 25 mg PO DAILY 02/26/19 Quetiapine Fumarate [Seroquel] 100 mg PO QHS 02/26/19 Sucralfate [Carafate] 1 gm PO DAILY 02/26/19 Valacyclovir HCl [Valtrex] 1,000 mg PO DAILY PRN 02/26/19 Vitamin B-12 IM QMONTH 02/26/19 proMETHazine tablet [Phenergan tablet] 25 mg PO BID PRN 02/26/19 Primary Care Physician: Tom Roberto MD [Primary Care Provider] - Please follow up with your Primary Care Physician in: 1-2 weeks Please Follow Up With: Psychiatric services When: 1-2 weeks Disposition: Home Minutes spent on discharge:: 35 Patient Condition:: Stable Medical Necessity - Tobacco Use Smoking Status: Never smoker Tobacco Use: Non-smoker Meaningful Use Info Meaningful Use Diagnoses (Choose all that apply): None applicable <Ar Arnold - Last Filed: 02/27/19 15:00> Discharge Date and Diagnosis - Secondary Discharge Diagnosis Chronic Problems Hypothyroidism (Chronic) Hypertension (Chronic) Anxiety and depression (Chronic) Acromegaly (Chronic) History of pituitary surgery (Chronic) Rheumatoid arthritis (Chronic) Adult failure to thrive (Chronic) Normochromic normocytic anemia (Chronic) Peptic ulcer disease (Chronic) at the site of the anastomosis of gastric bypass Hospital Course and Treatment Summary of Care Provided: This patient was seen in conjunction with Yobani ZAPATA. I have independently interviewed and examined the patient and reviewed pertinent history, examination findings, laboratory and plan of management. I have reviewed the note and agree with the documented findings with the few additional points. In brief, patient is admitted for sudden onset of syncope when she was standing in the kitchen. She is on multiple antipsychotic antidepressant medications as mentioned above. EMS found to have orthostatic hypotension. During hospital course, on repeat orthostatic vitals, there was slight increase in heart rate from sitting to standing but not significant change in blood pressure but did not meet POTS criteria. Chest x-ray negative. EKG negative. Troponin negative. She had mild hypokalemia and hypomagnesemia which were replaced. She was managed with IV fluid normal saline. Patient was advised to decrease the dose of multiple antianxiety/antidepressant medication and/or increase the frequency of medications and spread out the timing of the medications. Dose of Seroquel at night, Vistaril 25 mg twice daily as needed decreased. She has a psychiatrist Dr. Post in [place] and was advised to follow-up in 1 week for reconciliation of antipsychotic medications. Discharge medication reconciliation done. Discharge follow-up instructions completed. Discharge process discussed with the patient and all questions were answered to patient's satisfaction.. Total time spent, exact 35 minutes on discharge meds reconciliation, examination, review of imaging and blood test and discussion with the patient on follow-up instructions. I have discussed my assessment with Yobani ZAPATA and orders have been reviewed. [] Subjective: Patient seen and examined. Patient is on multiple antipsychotic medications secondary to anxiety and depression, chronic in nature. Patient recently lost her . He is on Wellbutrin 150 mg daily, Cymbalta 60 mg daily, buprenorphine?unconfirmed, Vistaril 50 mg twice daily as needed, Remeron 30 mg daily, Seroquel 25 mill grams daily and 100 mg at bedtime. She felt groggy and fell down and then she again stood up and fell down and lost consciousness for a few seconds to minute. She denies any major injury. She was last admitted for hypokalemia and debility secondary to mechanical falls in October 2018. Prior to that, she was admitted in August 2018 for subacute right lower extremity on chronic left lower extremity weakness and transferred to [facility] for MRI C-spine finding of disc degeneration at L3-L4 with mild compression of traversing L4 nerve root. She was discharged to SNF from [facility] without operative intervention. She denies dizziness this time, she denies any dizziness, blurry vision. Orthostatic vital signs done yesterday and today did not show significant change in blood pressure, there is 10 mm drop on sitting but her heart rate went up from 60-71 on standing. orthostatic vitals done in the morning today, her heart rate went up from 73-87 on standing. No significant change in blood pressure. Change in - Physical Exam General: Alert, Oriented x3, Cooperative HEENT: Atraumatic, PERRLA, EOMI, Normocephalic Neck: Supple, No JVD, Negative Carotid Bruits Lungs: Clear to auscultation, Normal air movement, No rhonchi, No wheeze, No rales Cardiovascular: Regular rate, Regular Rhythm, Normal S1, Normal S2, No murmurs Abdomen: Bowel Sounds Present, Soft, Non Tender Extremities: No edema, Capillary Refill Less than 3 Seconds Skin: No rashes, No breakdown Musculoskeletal: No Tenderness to Palpation of Joints or Extremities, Arthritic Changes, Muscle Wasting Neurological: Cranial nerves II-XII grossly intact, Deep Tendon Reflexes 2+/4 and Symmetrical, - - Chronic weakness of left lower extremity. Right lower extremity mild weakness. Psych/Mental Status: Normal Affect, Appropriate Vital Signs Temp Pulse Resp BP Pulse Ox 98.2 F 73 14 117/88 H 100 02/27/19 08:20 02/27/19 10:49 02/27/19 08:20 02/27/19 10:49 02/27/19 08:20 Oxygen Flow Rate (L/min) 0 Oxygen Delivery Method Room Air Weight: 119 lb 0.794 oz Body Mass Index (BMI) 20.7 Intake and Output for Last 24 Hours 02/25/19 02/26/19 02/27/19 23:59 23:59 23:59 Intake Total 1177 / 1177 862 / 862 Balance 1177 / 1177 862 / 862 Laboratory Tests Past 24 Hrs 02/26/19 02/26/19 02/26/19 17:00 17:00 19:30 WBC RBC Hgb Hct MCV MCH MCHC RDW Std Deviation RDW Coeff of Robyn Plt Count MPV Sodium Potassium Chloride Carbon Dioxide Anion Gap BUN Creatinine Estim Creat Clear Calc Est GFR (MDRD) Af Amer Est GFR (MDRD) Non-Af BUN/Creatinine Ratio Glucose Calcium Phosphorus 3.9 Magnesium 1.7 Troponin I < 0.015 < 0.015 02/27/19 02/27/19 05:09 05:09 WBC 5.7 RBC 3.27 L Hgb 9.2 L Hct 30.4 L MCV 93.0 MCH 28.1 MCHC 30.3 L RDW Std Deviation 55.1 H RDW Coeff of Robyn 16.1 H Plt Count 198 MPV 9.2 Sodium 146 H Potassium 3.9 Chloride 112 H Carbon Dioxide 28.0 Anion Gap 6 BUN 10 Creatinine 0.48 L Estim Creat Clear Calc 112.12 Est GFR (MDRD) Af Amer 174 Est GFR (MDRD) Non-Af 143 BUN/Creatinine Ratio 20.8 H Glucose 82 Calcium 8.2 L Phosphorus 4.2 Magnesium 1.7 Troponin I Code Visit OBSV E&M: 17059 Observation care discharge
== END 2019-02-27 10:53 | disposition home or self-care (01) ==
LOC: ED 14:56 → PCU 16:51
PROVIDERS: Admitting Provider Internal Medicine; Emergency Provider Emergency Medicine; Family Provider Family Medicine; PCP Family Medicine; Referring Provider Internal Medicine; Visit Provider Internal Medicine
DX: I95.1 Orthostatic hypotension (principal); E87.6 Hypokalemia; E03.9 Hypothyroidism, unspecified; G89.4 Chronic pain syndrome; I10 Essential (primary) hypertension; M06.9 Rheumatoid arthritis, unspecified; E22.0 Acromegaly and pituitary gigantism; D64.9 Anemia, unspecified; E86.0 Dehydration; E87.3 Alkalosis; F41.9 Anxiety disorder, unspecified; F32.9 Major depressive disorder, single episode, unspecified; Z79.899 Other long term (current) drug therapy; Z98.84 Bariatric surgery status; Z79.52 Long term (current) use of systemic steroids
CPT/HCPCS: 36415; 70450; 71046; 73564; 80048; 83735; 84100; 84484; 85025; 85027; 93005; 94762; 96360; 96361; 97162; 97165; 99218; 99285; J7030; A4216; G0378

== ENCOUNTER 2019-03-26 09:59 | Emergency (ER) | payer MEDICARE, SELFPAY ==
[2019-02-26 16:38] VITALS: BMI 20.7
[2019-03-26 10:00] VITALS: BP 162/102; PULSE 83; RESP 17; TEMP 36.8; O2SAT 100; BMI 20.3
--- NOTE | 2019-03-26 10:33 | CT_ITS ---
STUDY: CT BRAIN WITHOUT CONTRAST REASON FOR EXAM: Female, 53 years old. Status post fall, passed out last night. History of falls weakness pituitary surgery. RADIATION DOSAGE (If Supplied By Facility): CTDIvol = ( 44.99 ) mGy, DLP = ( 745.49 ) mGycm TECHNIQUE: Transaxial CT imaging of the brain was performed without administration of intravenous contrast material. Individualized dose optimization techniques were used for this CT. COMPARISON: February 26, 2019 CT scan, September 13, 2018 CT head MRI 09/13/2018 FINDINGS: Normal soft tissue structures. Normal calvarium. Normal size ventricles and extra-axial spaces for the patient's age. Normal white matter tracts of the cerebral hemispheres. Normal basal ganglia and thalami. Normal brainstem. Normal cerebellum. Again noted is a calcification which appears to extend over the roof of the bony sella. There is an enlarged appearance of the bony sella with remodeling of the superior aspect of the clivus. There is no intracranial hemorrhage. There are no findings of an acute ischemic infarction. Normal visualized paranasal sinuses. CT/Brain/Head without Contrast IMPRESSION: There is a enlarged and well-circumscribed the erosive appearance of the superior aspect of the sella and superior clivus, and calcification of the roof of the bony sella. This has been described on more recent MRI of the brain dated September 13, 2018, without contrast. Recommend consideration for a follow-up MRI with pituitary protocol with gadolinium when clinically appropriate. CT head findings today are relatively stable when compared to prior study without visualized acute hemorrhage infarct or edema. Electronically Signed: Jessika Moser MD at 11:19 EDT Tel , Service support ,
--- NOTE | 2019-03-26 10:33 | EKG12_ITS ---
Test Reason : DYSRHYTHMIA Blood Pressure : / mmHG Vent. Rate : 075 BPM Atrial Rate : 075 BPM P-R Int : 146 ms QRS Dur : 080 ms QT Int : 426 ms P-R-T Axes : 056 -08 056 degrees QTc Int : 475 ms Normal sinus rhythm Normal ECG Confirmed by DRE GONZALEZ ([id number]), editorial cartoonist GER ZHANG ([id number]) on 04/04/2019 2:32:18 PM Referred By: SUKUMAR Confirmed By:DRE GONZALEZ
--- NOTE | 2019-03-26 10:37 | ED.VIS.GEN ---
History of Present Illness Chief Complaint: Syncope Informant: Patient Onset: Yesterday Current Severity: Mild Narrative: Patient presents complaining of syncope x2 yesterday she indicates on both occasions she had gotten up was simply walking and fell to the ground syncope lasted for a minute or 2 friend helped her back up, she was then walking back to the bedroom when she again had syncope for just a minute or 2, she indicates she believes she may have injured her right shoulder, she had no premonitory symptoms of any kind, she does indicates she has history of adrenal insufficiency related to pituitary resection, gastric bypass, she has episodes of syncope related to shift and volume status orthostasis, she indicates she has had poor p.o. intake recently. She denies fever cough chest pain abdominal pain nausea or vomiting no bowel bladder complaints normal outputs, indicates he was admitted a few weeks ago for the same work-up was entirely negative, also indicates she is been admitted in the past for similar episodes in the work-ups are generally unremarkable showing no life-threatening etiologies and symptoms believe to be related again to shift and volume status This time she is resting company the bed with no complaints she came to the emergency department on her own without difficulty she has very mild right shoulder pain as her only complaint Past Medical History - Allergies and Home Meds Allergies/Adverse Reactions: Allergies No Known Allergies Allergy (Verified 03/26/19 10:00) Primary Care Physician: Tom Roberto MD [Primary Care Provider] - Past Medical History: - - As above Surgical History: gastric bypass, - - Lumbar surgery - fusion at L4-5, Smoking Status: Never smoker - Family History Paternal Family History: Reports: No pertinent history - no Family history of neurological disease in parents Maternal Family History: Reports: No pertinent history Review of Systems General: Denies: Chills, Fever, Sweats Eyes: Denies: Visual changes - bilaterally, Diplopia ENT: Denies: Rhinorrhea, Sore throat Cardiovascular: Denies: Chest pain, Palpitations Respiratory: Denies: Dyspnea, Cough, Dyspnea on exertion Gastrointestinal: Denies: Abdominal pain, Nausea, Vomiting, Diarrhea, Melena, Hematochezia Genitourinary: Denies: Dysuria, Hematuria, Frequency Musculoskeletal: Denies: Back pain, Extremity Pain Skin: Denies: Rash, Wounds Neurological: Denies: Headache, Weakness, Numbness Physical Exam Vital Signs/Narrative: Vital Signs Temp Pulse Resp BP Pulse Ox 03/26/19 10:00 98.2 F 83 17 162/102 H 100 General: Well nourished, Well developed, No Acute Distress Head: Normocephalic, Atraumatic Eyes: Perrl, EOMI ENT: Moist mucous membranes, No rhinorrhea Neck: Supple, Nontender Cardiovascular: Regular rate, Regular rhythm, No murmurs Respiratory: No distress, CTA bilaterally, Chest nontender Abdomen: Soft, Nontender, Nondistended, Normal bowel sounds Back: Nontender, Normal Inspection Extremities: Nontender, No edema Skin: Normal color, No rash Neurological: Alert, Oriented x3, Cranial nerves II-XII grossly intact, Normal Strength, Normal Sensation Psychological: Normal affect, Normal Mood Diagnostic/Tx/Re-eval - Medical Decision Making Patient is resting company in the bed no complaints vital signs appear within normal range this time screening labs are obtained IV fluids EKG His EKG shows a rate of 75 no acute injury pattern appreciated QRS durations intervals appear within normal range, chest x-ray one view shows nothing acute, head CT per radiology shows nothing acute they do mention changes in the pituitary sella area see that report really unchanged from MRI 2019 lAbs are generally unremarkable see those reports, vital signs remain normal Given all the above the patient she is feeling better she wants to go home she does not wish to be admitted, explained to the exact etiology of the above is unclear we discussed her using walking aids cane etc. to walk she will consider that follow-up with her outpatient providers continue to force fluids and have explained to her she should talk to providers about the need for any further DIRECTOR [employer]ATE[employer] imaging when she follows up with them and she will do so Please also note we reviewed her past history the orthostasis etc. and I explained to her she should routinely use a walking aid when she goes from the seated or supine to upright position and she should deliberately stay stay seated until she is not orthostatic with symptomatic before she gets fully upright Home stable Final impression recurrent syncope etiology not entirely clear, history of pituitary resection and adrenal insufficiency, and orthostasis ED Disposition - Plan for ED Patient: Diagnosis: History of pituitary surgery, Orthostatic hypotension Instructions: SYNCOPE, Vasovagal, SYNCOPE, Unk Cause Referrals: Tom Roberto MD [Primary Care Provider] -
[2019-03-26] MEDS: 0.9% Normal Saline 1,000 ML 1000 ML IV (10:39)
[2019-03-26] MEDS: Acetaminophen 325 MG Tablet 650 MG PO (10:44)
[2019-03-26 10:46] LABS: Mucous, Urine 0 SEEN /hpf (<or=2+)
[2019-03-26 10:50] VITALS: BP 155/113; BP 160/123; BP 167/114; PULSE 74; PULSE 80; PULSE 82
[2019-03-26 10:50] LABS: Absolute Lymphocyte Count 2.71 X10^3/uL (0.83-4.51); Basophil# 0.04 X10^3/uL; Basophil% 0.6 % (0-1); Eosinophil# 0.21 X10^3/uL; Eosinophils% 3.3 % (0-5); Hematocrit 38.9 % (37-47); Lymphocyte # 2.71 X10^3/ul (4.0); Lymphocyte % 42.3 % (19-41); Mean Corp Hgb Conc 30.8 g/dL (32-36); Mean Corpuscular Hgb 29.7 pg (27.0-32.0); Mean Corpuscular Volume 96.3 fL (81-99); Mean Platelet Vol. 9.5 fl (6.2-12.0); Monocyte# 0.42 X10^3/uL; Monocyte% 6.6 % (0-10); NRBC Flagged by Analyzer 0 % (0-5); Neutrophil # 2.99 X10^3/uL (2.7-7.7); Neutrophil % 46.7 % (47-70); Platelet Count 196 K/mm3 (150-450); RBC Distribution Width CV 17.9 % (11.6-14.6); RBC Distribution Width SD 63.6 fl (35.1-43.9); Red Blood Count 4.04 M/mm3 (4.2-5.4); White Blood Count 6.4 K/mm3 (4.4-11.0)
[2019-03-26 10:52] LABS: Color, Urine Yellow (Yellow); Glucose, Dipstick Normal (Normal); Ketone-Dipstick Negative (Negative); Leukocyte Esterase-Dipstick 25 /ul (Negative); Nitrite-Dipstick Negative (Negative); Occult Blood-Urine 10 /ul (Negative); Protein-Dipstick Negative (Negative); Specific Gravity, Urine 1.015 (1.002-1.030); Urine Bilirubin Dipstick Negative (Negative); Urine Clarity Clear (Clear); Urine Urobilinogen Normal (Normal)
[2019-03-26 10:58] LABS: Bacteria 1+ /hpf (None Seen); Calcium Oxalate Crystals Ur 1+ /hpf (<or=2+); Red Blood Cells-Urine 0-5 SEEN /hpf (0-5); Squamous Epithelial Cells - UA 0-5 SEEN /hpf (5-10); White Blood Cells 0-5 SEEN /hpf (0-5)
--- NOTE | 2019-03-26 11:00 | RAD_ITS ---
STUDY: X-RAY CHEST REASON FOR EXAM: Female, 53 years old. Trauma TECHNIQUE: PA and lateral views of the chest. COMPARISON: February 26, 2019 chest x-ray FINDINGS: The lungs are clear and expanded. There is no demonstrated pleural abnormality. Normal size heart. Normal mediastinum and apple. Normal visualized pulmonary arteries. Normal visualized aortic arch and descending thoracic aorta. There are diffuse degenerative changes of the visualized thoracic spine. There is visualized degenerative change in bilateral acromioclavicular joints. There is a visualized hiatal hernia within air-fluid level measuring 4.4 x 5.0 cm. There is visualized postoperative change in the left upper quadrant. RAD/Chest PA and Lateral IMPRESSION: Degenerative change thoracolumbar spine. No visualized focal infiltrate. The visualized fracture. Small to moderate hiatal hernia. Electronically Signed: Jessika Moser MD at 11:21 EDT Tel , Service support ,
[2019-03-26 11:07] LABS: ALB/GLOB Ratio 0.9 RATIO (0.9-2.4); AST(SGOT) 27 U/L (15-37); Alanine Aminotransfer ALT/SGPT 23 U/L (13-56); Albumin, Serum 3.2 g/dL (3.2-5.0); Alkaline Phosphatase 157 U/L (45-117); Anion Gap 5 (5-15); BUN 13 mg/dL (7-18); BUN/Creat Ratio 19.1 RATIO (10-20); Bilirubin, Direct 0.09 mg/dL (0.00-0.30); Calcium,Total 8.5 mg/dL (8.5-10.1); Chloride 105 mmol/L (98-107); Creatinine, Serum 0.68 mg/dL (0.55-1.02); EST Glomerular Filtration Rate 96 mL/min (>60); Est Glom Filt Rate - Afr Amer 116 mL/min (>60); Estimated Creatinine Clearance 78.79 ml/min; Globulin 3.6 g/dL (2.2-4.2); Glucose 81 mg/dL (74-106); Lipase 42 U/L (73-393); Potassium 3.3 mmol/L (3.5-5.1); Protein, Total 6.8 g/dL (6.4-8.2); Sodium Level 142 mmol/L (136-145)
--- NOTE | 2019-03-26 11:07 | RAD_ITS ---
STUDY: X-RAY - RIGHT SHOULDER REASON FOR EXAM: Female, 53 years old. Trauma TECHNIQUE: 4 view(s) of the shoulder. COMPARISON: February 26, 2019 chest x-ray FINDINGS: Normal glenohumeral articulation. There is degenerative arthrosis of the acromioclavicular joint without inferior osseous spur formation. Normal acromion. Normal humeral head and visualized proximal humerus. The soft tissue structures are unremarkable. Normal visualized pulmonary apex. RAD/Shoulder min 2 Views IMPRESSION: Degenerative change. No visualized acute fracture. Electronically Signed: Jessika Moser MD at 11:22 EDT Tel , Service support ,
[2019-03-26] MEDS: oxyCODONE 5 MG Tablet PO (11:36)
[2019-03-26 11:37] LABS: Magnesium 2.1 mg/dL (1.6-2.6); Phosphorus 4.5 mg/dL (2.5-4.9)
[2019-03-26 11:40] VITALS: BP 169/120; PULSE 71; RESP 18; O2SAT 99
[2019-03-26 12:08] VITALS: BP 169/126; PULSE 70; RESP 14; O2SAT 100
== END 2019-03-26 12:19 | disposition home or self-care (01) ==
LOC: ED 10:35
PROVIDERS: Emergency Provider Emergency Medicine; Family Provider Family Medicine; PCP Family Medicine
DX: I95.1 Orthostatic hypotension (principal); Z98.84 Bariatric surgery status; E89.3 Postprocedural hypopituitarism
CPT/HCPCS: 70450; 71046; 73030; 80053; 80076; 81001; 83690; 83735; 84100; 84484; 85025; 93005; 96360; 99285; J7030; A4216

== ENCOUNTER → 2019-04-26 | Outpatient (CLI) | payer MEDICARE, SELFPAY ==
[2019-04-26 11:58] LABS: Amphetamine Urine VISTA NEGATIVE (<1000 ng/mL); Barbiturate Urine VISTA NEGATIVE (< 200 ng/mL); Benzodiazepine Urine VISTA NEGATIVE (< 200 ng/mL); Cocaine Urine VISTA NEGATIVE (< 300 ng/mL); Ecstacy Urine VISTA POSITIVE (< 500 ng/mL); Methadone Urine VISTA NEGATIVE (< 300 ng/mL); PCP Urine VISTA NEGATIVE (< 25 ng/mL); THC Urine VISTA NEGATIVE (< 50 ng/mL); Vista UDS pH Range 6
== END | disposition home or self-care (01) ==
LOC: LAB 10:38
PROVIDERS: Family Provider Family Medicine; PCP Family Medicine; Referring Provider Anesthesiology Pain Medicine; Visit Provider Anesthesiology Pain Medicine
DX: F11.20 Opioid dependence, uncomplicated (principal)
CPT/HCPCS: 80307

== ENCOUNTER → 2019-11-29 | Outpatient (CLI) | payer MEDICARE, MEDICAID, SELFPAY ==
[2019-11-29 14:33] LABS: Absolute Lymphocyte Count 1.03 X10^3/uL (0.83-4.51); Absolute Neutrophil Count 3.8 X10^3/uL (2.0-7.7); Basophil# 0.05 X10^3/uL; Basophil% 0.9 % (0-1); Eosinophils% 8.6 % (0-5); Hemoglobin 11.3 g/dL (12.0-15.0); Lymphocyte # 1.03 X10^3/ul (4.0); Lymphocyte % 17.8 % (19-41); Mean Corp Hgb Conc 31.4 g/dL (32-36); Mean Corpuscular Volume 105.3 fL (81-99); Mean Platelet Vol. 8.7 fl (6.2-12.0); Monocyte# 0.39 X10^3/uL; Monocyte% 6.7 % (0-10); NRBC Flagged by Analyzer 0 % (0-5); Neutrophil # 3.78 X10^3/uL (2.7-7.7); Neutrophil % 65.1 % (47-70); Platelet Count 311 K/mm3 (150-450); RBC Distribution Width CV 12.4 % (11.6-14.6); Red Blood Count 3.42 M/mm3 (4.2-5.4); White Blood Count 5.8 K/mm3 (4.4-11.0)
[2019-11-29 15:05] LABS: Vitamin B12 488 pg/mL (211-911)
[2019-11-29 15:13] LABS: ALB/GLOB Ratio 0.8 RATIO (0.9-2.4); AST(SGOT) 17 U/L (15-37); Alanine Aminotransfer ALT/SGPT 15 U/L (13-56); Albumin, Serum 2.8 g/dL (3.2-5.0); Alkaline Phosphatase 141 U/L (45-117); Anion Gap 8 (5-15); BUN 20 mg/dL (7-18); BUN/Creat Ratio 33.3 RATIO (10-20); Calcium,Total 8.6 mg/dL (8.5-10.1); Chloride 102 mmol/L (98-107); EST Glomerular Filtration Rate 111 mL/min (>60); Est Glom Filt Rate - Afr Amer 134 mL/min (>60); Globulin 3.4 g/dL (2.2-4.2); Glucose 87 mg/dL (74-106); Iron 81 ug/dL (50-170); Iron Binding Capacity,Total 177 ug/dL (250-450); Potassium 4.2 mmol/L (3.5-5.1); Protein, Total 6.2 g/dL (6.4-8.2); Sodium Level 139 mmol/L (136-145); Thyroid Stim Hormone (TSH) 0.18 uIU/mL (0.358-3.74)
== END | disposition home or self-care (01) ==
LOC: LAB 11:42
PROVIDERS: PCP Family Medicine; Referring Provider Family Medicine; Visit Provider Family Medicine
DX: E23.0 Hypopituitarism (principal); Z98.84 Bariatric surgery status
CPT/HCPCS: 36415; 80053; 82607; 82746; 83540; 83550; 84443; 85025

== ENCOUNTER → 2019-12-19 | Outpatient (CLI) | payer MEDICARE, MEDICAID, SELFPAY ==
[2019-12-19 12:48] LABS: Amphetamine Urine VISTA NEGATIVE (<1000 ng/mL); Barbiturate Urine VISTA NEGATIVE (< 200 ng/mL); Benzodiazepine Urine VISTA NEGATIVE (< 200 ng/mL); Cocaine Urine VISTA NEGATIVE (< 300 ng/mL); Ecstacy Urine VISTA NEGATIVE (< 500 ng/mL); Methadone Urine VISTA NEGATIVE (< 300 ng/mL); PCP Urine VISTA NEGATIVE (< 25 ng/mL); THC Urine VISTA NEGATIVE (< 50 ng/mL); Vista UDS pH Range 5
== END | disposition home or self-care (01) ==
LOC: LAB 10:15
PROVIDERS: PCP Family Medicine; Referring Provider Anesthesiology Pain Medicine; Visit Provider Anesthesiology Pain Medicine
DX: F11.20 Opioid dependence, uncomplicated (principal)
CPT/HCPCS: 80307

== ENCOUNTER → 2020-07-10 06:57 | Outpatient (CLI) | payer MEDICARE, MEDICAID, SELFPAY ==
--- NOTE | 2020-07-10 07:02 | MRI_ITS ---
STUDY: MRI CERVICAL SPINE WITHOUT CONTRAST REASON FOR EXAM: Female, 54 years old. neck pain, pain extends down back when bending head forward TECHNIQUE: Standardized fat and water weighted pulse sequences were obtained in the sagittal and axial planes. COMPARISON: 09/13/2018. FINDINGS: Normal foramen magnum and brainstem-cervical cord junction. Normal cervical lordosis. C2-3: Normal endplates. Normal disc height, signal and morphology. Normal central canal and intervertebral neural foramina. C3-4: There is minimal disc space narrowing and endplate spondylosis. There is no significant disc herniation, central canal or left foraminal stenosis. Uncovertebral and facet arthropathy with moderate right foraminal stenosis. Findings are grossly stable in comparison with the prior examination. C4-5: There is mild disc space narrowing and endplates spondylosis. Minimal disc osteophyte complex without significant central canal stenosis. Uncovertebral and facet arthropathy with mild right and mild left foraminal stenosis. C5-6: There is mild disc space narrowing and endplates spondylosis. Minimal disc osteophyte complex without significant central canal stenosis. Uncovertebral arthropathy with mild right and mild left foraminal stenosis. C6-7: There is mild disc space narrowing and endplates spondylosis. Minimal disc osteophyte complex without significant central canal stenosis. Uncovertebral arthropathy with mild right and mild left foraminal stenosis. C7-T1: Normal endplates. Normal disc height, signal and morphology. Normal central canal and intervertebral neural foramina. Normal cervical cord. MRI/Spine Cervical (Routine) IMPRESSION: C3/C4: Moderate right foraminal stenosis. Mild degenerative changes. Electronically Signed: Danielle Tineo MD at 8:07 EST Tel , Service support ,
== END ==
PROVIDERS: PCP Family Medicine; Referring Provider Anesthesiology Pain Medicine; Visit Provider Anesthesiology Pain Medicine
DX: M54.2 Cervicalgia (principal)
CPT/HCPCS: 72141

== ENCOUNTER → 2020-08-22 11:14 | Outpatient (CLI) | payer MEDICARE, MEDICAID, SELFPAY ==
[2020-08-22 12:43] LABS: Amphetamine Urine VISTA NEGATIVE (<1000 ng/mL); Barbiturate Urine VISTA NEGATIVE (< 200 ng/mL); Benzodiazepine Urine VISTA NEGATIVE (< 200 ng/mL); Cocaine Urine VISTA NEGATIVE (< 300 ng/mL); Ecstacy Urine VISTA NEGATIVE (< 500 ng/mL); Methadone Urine VISTA NEGATIVE (< 300 ng/mL); PCP Urine VISTA NEGATIVE (< 25 ng/mL); THC Urine VISTA NEGATIVE (< 50 ng/mL); Vista UDS pH Range 7
== END ==
PROVIDERS: PCP Family Medicine; Referring Provider Anesthesiology Pain Medicine; Visit Provider Anesthesiology Pain Medicine
DX: F11.20 Opioid dependence, uncomplicated (principal)
CPT/HCPCS: 80307

== ENCOUNTER → 2021-04-29 10:00 | Outpatient (CLI) | payer MEDICARE, MEDICAID, SELFPAY ==
[2021-04-29 11:51] LABS: Amphetamine Urine VISTA NEGATIVE (<1000 ng/mL); Barbiturate Urine VISTA NEGATIVE (< 200 ng/mL); Benzodiazepine Urine VISTA NEGATIVE (< 200 ng/mL); Cocaine Urine VISTA NEGATIVE (< 300 ng/mL); Ecstacy Urine VISTA NEGATIVE (< 500 ng/mL); Methadone Urine VISTA NEGATIVE (< 300 ng/mL); PCP Urine VISTA NEGATIVE (< 25 ng/mL); THC Urine VISTA NEGATIVE (< 50 ng/mL); Vista UDS pH Range 6
== END ==
PROVIDERS: PCP Family Medicine; Visit Provider Anesthesiology Pain Medicine
DX: F11.20 Opioid dependence, uncomplicated (principal)
CPT/HCPCS: 80307